=== PATIENT | female | born 1945 | race African-American/Black ===

== ENCOUNTER → 2017-04-28 | Outpatient (CLI) | payer MEDICARE, OTHER ==
--- NOTE | 2017-04-28 08:50 | WOMENS IMAGING REPORT ---
EXAM DESCRIPTION: BILAT SCREENING MAMMO W/CAD COMPLETED DATE/TIME: 04/28/2017 8:00 am REASON FOR STUDY: Z12.31, ROUTINE SCREENING MAMMO Z12.31 ENCNTR SCREEN MAMMOGRAM FOR MALIGNANT NEOP LASM OF NATALIE COMPARISON: Multiple since 2009 TECHNIQUE: Standard craniocaudal and mediolateral oblique views of each breast recorded using digita l acquisition. LIMITATIONS: None. FINDINGS: Findings present which are benign by mammographic criteria. No suspicious masses, calcifi cations or architectural distortion. Pertinent benign findings: Benign vascular calcifications bilaterally. Read with the assistance of CAD. .[facility] - R2 Cenova Version 1.3 .[facility] - R2 Cenova Version 1.3 .[facility] - R2 Cenova Version 2.4 .[facility] [place] R2 Cenova Version 2.4 .[facility] - R2 Shoulder Joiner Version 9.2 Benign mammographic findings may include one or more of the following: Smooth masses, popcorn/rim/co arse calcifications, asymmetries, post-procedure changes, and lesions with long-standing stability. IMPRESSION: BENIGN MAMMOGRAPHIC FINDINGS. BIRADS 2 BREAST DENSITY: b. There are scattered areas of fibroglandular density. BIRAD: 2 BENIGN FINDING(S) RECOMMENDATION: ROUTINE SCREENING Please consider bilateral screening tomosynthesis in April 2018 COMMENT: The patient has been notified of the results by letter per [place] requirements. Additional no tification policies are in place for contacting patient with suspicious or incomplete findings. Quality ID #[id number]: The [employer] recommends an annual screening mammogram for women aged 40 years or over. This facility utilizes a reminder system to ensure that all patients receive reminder letters, and/or direct phone calls for appointments. This includes reminders for routine scr eening mammograms, diagnostic mammograms, or other Breast Imaging Interventions when appropriate. Th is patient will be placed in the appropriate reminder system. The [employer] (ACR) has developed recommendations for screening MRI of the breast s in certain patient populations, to be used in conjunction with mammography. Breast MRI surveillanc e may be appropriate for women with more than 20% lifetime risk of developing breast cancer as deter mined by genetic testing, significant family history of the disease, or history of mantle radiation f or Hodgkins Disease. ACR Practice Guidelines 2008. TECHNICAL DOCUMENTATION: FINDING NUMBER: (1) ASSESSMENT: (1) JOB ID: [id number] [employer]- All Rights Reserved
== END ==
LOC: WI 12:52
PROVIDERS: ATTEND Family Medicine
DX: Z12.31 Encounter for screening mammogram for malignant neoplasm of breast (principal)
CPT/HCPCS: 77067; G0202

== ENCOUNTER → 2017-08-12 | Outpatient (CLI) | payer MEDICARE, OTHER ==
--- NOTE | 2017-08-12 13:48 | RADIOLOGY REPORT (SQ) ---
EXAM DESCRIPTION: SHOULDER RIGHT 2 OR MORE VIEWS COMPLETED DATE/TIME: 08/12/2017 9:55 am REASON FOR STUDY: RIGHT SHOULDER PAIN, UNSPECIFIED CHRONICITY COMPARISON: None. NUMBER OF VIEWS: Three views. TECHNIQUE: Internal rotation, external rotation, and Y view images acquired of the right shoulder. LIMITATIONS: None. FINDINGS: MINERALIZATION: Normal. BONES: No acute fracture or dislocation. No worrisome bone lesions. JOINTS: No dislocation. VISUALIZED LUNGS AND RIBS: No pneumothorax. No rib fracture. SOFT TISSUES: No radiopaque foreign body. OTHER: No other significant finding. IMPRESSION: NEGATIVE STUDY OF THE RIGHT SHOULDER. NO RADIOGRAPHIC EVIDENCE OF ACUTE INJURY. TECHNICAL DOCUMENTATION: JOB ID: [id number] [employer]- All Rights Reserved
== END ==
LOC: RAD 09:30
PROVIDERS: ATTEND Family Medicine
DX: M25.511 Pain in right shoulder (principal)

== ENCOUNTER 2018-01-11 11:41 | Emergency (ER) | payer MEDICARE, OTHER ==
[2018-01-11] MEDS ORDERED: ASPIRIN 81 MG TABLET, CHEWABLE PO ONE (12:58)
--- NOTE | 2018-01-11 13:00 | ER Document Report ---
ED Medical Screen (RME) - General Chief Complaint: Blood Pressure Problem Stated Complaint: BLOOD PRESSURE ISSUE Time Seen by Provider: 01/11/18 12:46 Notes: Patient states that she was at work and felt like she was going to pass out. Had a near syncopal episode. Complaining of pain in her shoulders. No significant shortness of breath. No chest pain. No vomiting. On blood pressure medications. Takes lisinopril. Blood pressure at triage was low. I have greeted and performed a rapid initial assessment of this patient. A comprehensive ED assessment and evaluation of the patient, analysis of test results and completion of the medical decision making process will be conducted by additional ED providers. TRAVEL OUTSIDE OF THE [place] IN LAST 30 DAYS: No - Related Data Allergies/Adverse Reactions: No Known Allergies Allergy (Verified 01/11/18 11:43) Past Medical History - Social History Frequency of alcohol use: None Drug Abuse: None - Past Medical History Cardiac Medical History: Reports: Hx Hypertension Renal/ Medical History: Denies: Hx Peritoneal Dialysis GI Medical History: Reports: Hx Gastroesophageal Reflux Disease Psychiatric Medical History: Reports: Hx Depression Physical Exam - Vital signs Vitals: Temp Pulse Resp BP Pulse Ox 98.1 F 72 20 104/53 L 98 01/11/18 11:46 01/11/18 11:46 01/11/18 11:46 01/11/18 11:46 01/11/18 11:46 Interpretation: Hypotensive - Notes Notes: General: Alert no acute distress HEENT: Atraumatic, normocephalic, pupils equal round react to light and accommodation, extraocular muscles are intact, nose is non tender, posterior pharynx is without erythema or exudate. Tongue is unremarkable Heart: Heart with regular rate and rhythm, no murmurs, no rubs, no clicks Lungs: Lungs clear to auscultation bilaterally, no wheezes, rhonchi, rales Abdomen: Abdomen is soft, nontender, nondistended, normal bowel sounds Neuro: cranial nerves II through XII intact, reflexes intact, sensation intact, Extremities:Moving all extremities. Equal strength bilaterally in the upper lower extremities. No significant deformity Skin: No lesions. Skin intact Psych: Normal insight. Normal judgment Course - Vital Signs Vital signs: Temp Pulse Resp BP Pulse Ox 98.1 F 72 20 104/53 L 98 01/11/18 11:46 01/11/18 11:46 01/11/18 11:46 01/11/18 11:46 01/11/18 11:46
--- NOTE | 2018-01-11 13:57 | RADIOLOGY REPORT (SQ) ---
EXAM DESCRIPTION: CHEST SINGLE VIEW COMPLETED DATE/TIME: 01/11/2018 1:47 pm REASON FOR STUDY: low BP COMPARISON: Chest films 03/16/2014 EXAM PARAMETERS: NUMBER OF VIEWS: One view. TECHNIQUE: Single frontal radiographic view of the chest acquired. RADIATION DOSE: NA LIMITATIONS: None. FINDINGS: LUNGS AND PLEURA: No opacities, masses or pneumothorax. No pleural effusion. MEDIASTINUM AND HILAR STRUCTURES: No masses. Contour normal. HEART AND VASCULAR STRUCTURES: Mild cardiomegaly BONES: No acute findings. HARDWARE: None in the chest. OTHER: No other significant finding. IMPRESSION: NO ACUTE RADIOGRAPHIC FINDING IN THE CHEST. TECHNICAL DOCUMENTATION: JOB ID: [id number] [employer]- All Rights Reserved Reading location - IP/workstation name: [email or web address]
[2018-01-11 14:05] LABS: ABSOLUTE LYMPHOCYTES (AUTO) 1.9 10^3/uL (0.5-4.7); ABSOLUTE MONOCYTES (AUTO) 0.4 10^3/uL (0.1-1.4); ABSOLUTE NEUT (AUTO) 6.8 10^3/uL (1.7-8.2); BASOPHILS % (AUTO) 0.4 % (0-2); EOSINOPHILS % (AUTO) 0.3 % (0-6); HEMATOCRIT 41.7 % (36.0-47.0); HEMOGLOBIN 13.7 g/dL (12.0-15.5); LYMPHOCYTES % (AUTO) 20.5 % (13-45); MEAN CORPUSCULAR HEMOGLOBIN 25.8 pg (27.0-33.4); MEAN CORPUSCULAR VOLUME 78 fl (80-97); MONOCYTES % (AUTO) 4.3 % (3-13); PLATELET COUNT 277 10^3/uL (150-450); RED BLOOD COUNT 5.33 10^6/uL (3.72-5.28); RED CELL DISTRIBUTION WIDTH 14.8 % (11.5-14.0); SEGMENTED NEUTROPHILS % (AUTO) 74.5 % (42-78); TOTAL CELLS COUNTED % (AUTO) 100 %; WHITE BLOOD COUNT 9.2 10^3/uL (4.0-10.5)
[2018-01-11 14:14] LABS: ALANINE AMINOTRANSFERASE 20 U/L (9-52); ALBUMIN 4.2 g/dL (3.5-5.0); ALKALINE PHOSPHATASE 83 U/L (38-126); ANION GAP 12 (5-19); ASPARTATE AMINO TRANSFERASE 24 U/L (14-36); BILIRUBIN,DIRECT 0.2 mg/dL (0.0-0.4); BILIRUBIN,TOTAL 0.5 mg/dL (0.2-1.3); BLOOD UREA NITROGEN 21 mg/dL (7-20); CALCIUM 9.4 mg/dL (8.4-10.2); CARBON DIOXIDE 26 mmol/L (22-30); CHLORIDE 104 mmol/L (98-107); CREATINE KINASE 179 U/L (30-135); GLUCOSE 121 mg/dL (75-110); POTASSIUM 4.3 mmol/L (3.6-5.0); SODIUM 141.5 mmol/L (137-145); TOTAL PROTEIN 8.3 g/dL (6.3-8.2)
[2018-01-11 14:27] LABS: CREATINE KINASE MB 0.79 ng/mL (<4.55)
[2018-01-11 14:28] LABS: TROPONIN I < 0.012 ng/mL
--- NOTE | 2018-01-11 16:04 | ER Document Report ---
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 About 9:30 AM, she began to feel dizzy noted some pains in her neck and arms and felt like she might pass out. Her symptoms lasted about 30 minutes and she was picked up from work by her who took her home and took her blood pressure and it was 90/50. Patient says that her symptoms lasted about 30 minutes and have not been present ever since, it has now been 5 hours since her symptoms stopped and they have not returned. She has not had any nausea or vomiting or diarrhea. No abdominal pains. Denies any chest pains. Denies any difficulty breathing or shortness of breath. No UTI symptoms. No fever or chills. Patient did feel "hot". She has not been ill recently. Has been eating and drinking liquids well. Here in triage, her blood pressure is 104/53, but later her systolic blood pressure was in the 120s. Patient is on medications for her blood pressure. No other significant past medical history. Not diabetic. No history of heart disease. Has never had this happen to her before. TRAVEL OUTSIDE OF THE [place] IN LAST 30 DAYS: No - Related Data Allergies/Adverse Reactions: No Known Allergies Allergy (Verified 01/11/18 11:43) Past Medical History - Social History Smoking Status: Unknown if Ever Smoked Frequency of alcohol use: None Drug Abuse: None Family History: Reviewed & Not Pertinent Patient has suicidal ideation: No Patient has homicidal ideation: No - Past Medical History Cardiac Medical History: Reports: Hx Hypertension GI Medical History: Reports: Hx Gastroesophageal Reflux Disease Psychiatric Medical History: Reports: Hx Depression Review of Systems - Review of Systems Notes: REVIEW OF SYSTEMS: CONSTITUTIONAL : Denies fever. [place] "hot". EENT: Denies eye, ear, nose or mouth or throat pain or other symptoms. CARDIOVASCULAR: Denies chest pain. RESPIRATORY: Denies cough, chest congestion, or shortness of breath. GASTROINTESTINAL: Denies abdominal pain or nausea, vomiting, or diarrhea. GENITOURINARY: Denies difficulty or painful urinating, urinary frequency, blood in urine. MUSCULOSKELETAL: Denies back or neck pain. Denies joint pain or swelling. SKIN: Denies rash or skin lesions. NEUROLOGICAL: Denies LOC or altered mental status. Denies headache. Denies sensory loss or motor deficits. ALL OTHER SYSTEMS REVIEWED AND NEGATIVE. Physical Exam - Vital signs Vitals: Temp Pulse Resp BP Pulse Ox 98.1 F 72 20 104/53 L 98 01/11/18 11:46 01/11/18 11:46 01/11/18 11:46 01/11/18 11:46 01/11/18 11:46 Interpretation: Normal - Notes Notes: PHYSICAL EXAMINATION: GENERAL: Well-appearing, in no acute distress. Blood pressure towards the lower range of normal, but never hypotensive. HEAD: Atraumatic, normocephalic. EYES: Pupils equal round and reactive to light, extraocular movements intact. ENT: oropharynx clear without exudates. Moist mucous membranes. NECK: Normal range of motion, supple. LUNGS: Breath sounds clear and equal bilaterally. HEART: Regular rate and rhythm without murmurs. ABDOMEN: Soft, nontender. No guarding or rebound. No masses. BACK: No tenderness throughout entire back. EXTREMITIES: Normal range of motion without pain. NEUROLOGICAL: Normal speech, normal gait. Normal sensory, motor, and reflex exams. Awake, alert, and oriented x3. Cranial nerves normal. PSYCH: Normal mood, normal affect. SKIN: Warm, dry, no rashes. Course - Re-evaluation Re-evalutation: 01/11/18 20:20 Urinalysis is suggestive of a possible UTI. Patient was given a gram of Rocephin IV and also a liter of saline IV. She was nauseated and was given Zofran IV. Blood pressure maintained throughout her stay in the department. - Vital Signs Vital signs: Temp Pulse Resp BP Pulse Ox 98.1 F 72 16 128/71 H 100 01/11/18 11:46 01/11/18 11:46 01/11/18 19:01 01/11/18 19:01 01/11/18 19:01 - Laboratory Result Diagrams: 01/11/18 13:20 01/11/18 13:20 Laboratory results interpreted by me: 01/11/18 01/11/18 01/11/18 13:20 13:20 15:23 RBC 5.33 H MCV 78 L MCH 25.8 L RDW 14.8 H BUN 21 H Creatinine 1.33 H Est GFR ( Amer) 48 L Est GFR (Non-Af Amer) 39 L Glucose 121 H Creatine Kinase 179 H Total Protein 8.3 H Ur Leukocyte Esterase LARGE H Urine Ascorbic Acid 40 H - Diagnostic Test Radiology reviewed: Image reviewed, Reports reviewed - CT scan of the brain is normal. Discharge - Discharge Clinical Impression: Dizziness, UTI (urinary tract infection), Nausea Condition: Stable Disposition: HOME, SELF-CARE Additional Instructions: Dizziness Under normal circumstances, your sense of balance is controlled by a number of signals that your brain receives from several locations: Eyes. No matter what your position, visual signals help you determine where your body is in space and how it's moving. Sensory nerves. These are in your skin, muscles and joints. Sensory nerves send messages to your brain about body movements and positions. Inner ear. The organ of balance in your inner ear is the vestibular labyrinth. It includes loop-shaped structures (semicircular canals) that contain fluid and fine, hair-like sensors that monitor the rotation of your head. Near the semicircular canals are the utricle and saccule, which contain tiny particles called otoconia (w-ifi-MJT-nee-uh). These particles are attached to sensors that help detect gravity and hlon-xhe-uasyq motion. Good balance depends on at least two of these three sensory systems working well. For instance, closing your eyes while washing your hair in the shower doesn't mean you'll lose your balance. Signals from your inner ear and sensory nerves help keep you upright. However, if your central nervous system can't process signals from all of these locations, if the messages are contradictory, or if the sensory systems aren't functioning properly, you may experience loss of balance. Dizziness may have a number of potential causes. These may include: Vertigo Vertigo - the false sense of motion or spinning - is the most common symptom of dizziness. Sitting up or moving around may make it worse. Sometimes vertigo is severe enough to cause nausea and vomiting. Vertigo usually results from a problem with the nerves and the structures of the balance mechanism in your inner ear (vestibular system), which sense movement and changes in your head position. Abnormal rhythmic eye movements ( nystagmus) almost always accompany vertigo. Causes of vertigo may include: Benign paroxysmal positional vertigo (BPPV). BPPV involves intense, brief episodes of vertigo associated with a change in the position of your head, often when you turn over in bed or sit up in the morning. It occurs when normal calcium carbonate crystals (otoconia) break loose and fall into the wrong part of the canals in your inner ear. When these particles shift, they stimulate sensors in your ear, producing an episode of vertigo. Doctors don't know what causes BPPV, but it may be a natural result of aging. Trauma to your head also may lead to BPPV. Inflammation in the inner ear. Signs and symptoms of inflammation of the inner ear (acute vestibular neuronitis or labyrinthitis) include sudden, intense vertigo that may persist for several days, with nausea and vomiting. It can be incapacitating, requiring bed rest to minimize the signs and symptoms. Fortunately, vestibular neuronitis generally subsides and clears up on its own. Recovery time may be shorter with vestibular rehabilitation exercises. Although the cause of this condition is unknown, it may be a viral infection. Meniere's disease. This disease involves the excessive buildup of fluid in your inner ear. It may affect adults at any age and is characterized by sudden episodes of vertigo lasting 30 minutes to an hour or longer. Other signs and symptoms include the feeling of fullness in your ear, buzzing or ringing in your ear (tinnitus), and fluctuating hearing loss. The cause of Meniere's disease is unknown. Vestibular migraine. People who experience a vestibular migraine are very sensitive to motion. Dizziness and vertigo caused by a vestibular migraine may be triggered by turning your head quickly, being in a crowded or confusing place , driving or riding in a vehicle, or even watching movement on TV. A vestibular migraine may cause feelings of imbalance or unsteadiness, hearing loss, "muffled " hearing, or ringing in your ears (tinnitus). For most people with a vestibular migraine, vertigo doesn't necessarily happen at the same time as the headache. Instead, typical migraine triggers may lead to vertigo without an actual migraine. Attacks of migrainous vertigo can last from a few minutes to several days. Acoustic neuroma. An acoustic neuroma (schwannoma) is a noncancerous (benign ) growth on the acoustic nerve, which connects the inner ear to your brain. Signs and symptoms of an acoustic neuroma may include dizziness, loss of balance , hearing loss and tinnitus. Rapid changes in motion. Riding on roller coasters or in boats, cars or even airplanes may on occasion make you dizzy. Other causes. Rarely, vertigo can be a symptom of a more serious neurological problem such as a stroke, brain hemorrhage or multiple sclerosis. URINARY TRACT INFECTION: Your evaluation indicates that you have a urinary tract infection. This is due to germs growing in the bladder. This is a common problem. This infection usually responds quickly to antibiotics. Your antibiotic should be taken exactly as prescribed. Drink plenty of fluids -- three to four quarts a day. Occasionally, a bladder anesthetic will be prescribed to help stop the feeling of urgency until the antibiotic has a chance to clear the infection. This may cause your urine to be dark orange. Certain urine infections require a culture. If the doctor obtained a culture, the results will be back in two days. You should call to see if a change in treatment is needed. A repeat urinalysis after you finish treatment is often recommended. The physician will let you know if further testing is required. Call the doctor if you develop fever, chills, flank pain, inability to urinate, or blood in the urine. ANTIBIOTIC THERAPY: You have been given an antibiotic prescription. It's important that you take all the medication, unless instructed otherwise by your physician. Failure to complete the entire course can result in relapse of your condition. Common side effects of antibiotics include nausea, intestinal cramping, or diarrhea. Women may develop vaginal yeast infections, and babies can get yeast (thrush) in the mouth following the use of antibiotics. Contact your physician if you develop significant side effects from this medication. Allergy to this antibiotic can result in hives, wheezing, faintness, or itching. If symptoms of allergy occur, stop the medication and call the doctor. Rocephin You have been given an injection of an antibiotic called Rocephin ( ceftriaxone). Sometimes the injection must be combined with antibiotic pills. For some infections, such as an uncomplicated ear infection, Rocephin provides all the antibiotic that's needed. The antibiotic will be in your body for about two days. For serious infections, we usually repeat doses of Rocephin daily. Side effects are very unusual following a shot. Women may develop vaginal yeast infections, and babies can get yeast (thrush) in the mouth following the use of antibiotics. Contact your physician if you have symptoms with this medication. Allergy to this antibiotic can result in hives, wheezing, faintness, or itching. If symptoms of allergy occur, call the doctor at once. NITROFURANTOIN (MACRODANTIN, MACROBID): You have received a prescription for nitrofurantoin (Macrodantin). This antibiotic is used for urinary tract infections. Women who are or nursing should notify the physician before taking this medicine. If you have ever had a problem caused by this medication in the past, be sure the physician is aware of it. Common side effects of this medicine include nausea, vomiting, or decreased appetite. Notify your physician if these side effects become severe. Immediately stop this medicine and call the physician if you develop cough , shortness of breath, chest pain, weakness, jaundice (yellow color of the skin and whites of the eyes), or a skin rash. Antinausea Medication You have been given a medication to suppress nausea and vomiting. This type of medication can be given as a shot, pill, or suppository. It will usually last for many hours. Pills and shots usually last six to eight hours, suppositories last about 12 hours. For the typical illness, only one or two doses of the medication may be necessary. Mild lightheadedness may occur. This type of medicine can cause drowsiness. Do not drive or operate dangerous machinery while under its influence. Do not mix with alcohol. See your doctor at once if you have muscle spasms or tightness, or uncontrollable motions (particularly of the neck, mouth, or jaw). Persistent vomiting or severe lightheadedness should also be evaluated by the physician. FOLLOW-UP CARE: If you have been referred to a physician for follow-up care, call the physician s office for an appointment as you were instructed or within the next two days. If you experience worsening or a significant change in your symptoms, notify the physician immediately or return to the Emergency Department at any time for re-evaluation. Prescriptions: Ondansetron [Zofran Odt 4 mg Tablet] 1 - 2 tab PO Q4HP PRN #10 tab.rapdis PRN Reason: For Nausea/Vomiting Nitrofurantoin/Nitrofuran Mac [Macrobid 100 mg Capsule] 1 tab PO BID #14 capsule Forms: Return to Work Referrals: LUIS ARMANDO HOPKINS DO [Primary Care Provider] - Follow up as needed
[2018-01-11 16:08] LABS: APPEARANCE,URINE CLEAR; BILIRUBIN,URINE NEGATIVE (NEGATIVE); COLOR,URINE STRAW; GLUCOSE, URINE NEGATIVE (NEGATIVE); KETONES,URINE NEGATIVE (NEGATIVE)
[2018-01-11 16:09] LABS: LEUKOCYTE ESTERASE,URINE LARGE (NEGATIVE); NITRITE,URINE NEGATIVE (NEGATIVE); PROTEIN,URINE NEGATIVE (NEGATIVE); URINE SPECIFIC GRAVITY 1.018; UROBILINOGEN,URINE NEGATIVE mg/dL (<2.0)
--- NOTE | 2018-01-11 16:16 | RADIOLOGY REPORT (SQ) ---
EXAM DESCRIPTION: CT HEAD WITHOUT COMPLETED DATE/TIME: 01/11/2018 3:55 pm REASON FOR STUDY: Dizzy and low blood pressure COMPARISON: 03/16/2014 TECHNIQUE: Axial images acquired through the brain without intravenous contrast. Images reviewed wi th bone, brain and subdural windows. Additional sagittal and coronal reconstructions were generated. Images stored on PACS. All CT scanners at this facility use dose modulation, iterative reconstruction, and/or weight based d osing when appropriate to reduce radiation dose to as low as reasonably achievable (ALARA). [facility]: Dose Right [facility]: CareDose [facility]: Dose Right [facility]: Teradose 4D [facility]: Smart [employer] RADIATION DOSE: CT Rad equipment meets quality standard of care and radiation dose reduction techniq ues were employed. CTDIvol: 53.2 mGy. DLP: 1044 mGy-cm. mGy. LIMITATIONS: None. FINDINGS: VENTRICLES: Normal size and contour. CEREBRUM: No masses. No hemorrhage. No midline shift. No evidence for acute infarction. Mild to mo derate chronic small vessel ischemic disease similar to the prior study. Basal ganglion calcificatio ns. CEREBELLUM: No masses. No hemorrhage. No alteration of density. No evidence for acute infarction. EXTRAAXIAL SPACES: No fluid collections. No masses. ORBITS AND GLOBE: No intra- or extraconal masses. Normal contour of globe without masses. CALVARIUM: No fracture. PARANASAL SINUSES: No fluid or mucosal thickening. SOFT TISSUES: No mass or hematoma. OTHER: No other significant finding. IMPRESSION: 1. No evidence of acute event. 2. Chronic small vessel ischemic disease. EVIDENCE OF ACUTE STROKE: NO. COMMENT: Quality ID # [id number]: Final reports with documentation of one or more dose reduction techniques (e.g., Automated exposure control, adjustment of the mA and/or kV according to patient size, use of iterative reconstruction technique) TECHNICAL DOCUMENTATION: JOB ID: [id number] [email or web address]- All Rights Reserved Reading location - IP/workstation name: [email or web address]
[2018-01-11] MEDS ORDERED: CEFTRIAXONE INJ 1000 MG VIAL IV ONE (17:10)
[2018-01-11] MEDS ORDERED: NORMAL SALINE 1000 ML 1,000 ML IV ONE (17:20)
[2018-01-11] MEDS ORDERED: ONDANSETRON HCL INJ/PF 4 MG/2 ML SDV IV ONE (17:37)
--- NOTE | 2018-01-11 18:17 | EKG REPORT ---
SEVERITY:- ABNORMAL ECG - SINUS RHYTHM LEFT BUNDLE BRANCH BLOCK : Confirmed by: Car Stanley MD 11-Jan-2018 18:16:25
[2018-01-11 19:22] VITALS: BP 128/71
== END 2018-01-11 19:22 | disposition home or self-care (01) ==
LOC: ER 11:41
DX: R42 Dizziness and giddiness (principal); N39.0 Urinary tract infection, site not specified; R11.0 Nausea; I10 Essential (primary) hypertension; Z79.899 Other long term (current) drug therapy
CPT/HCPCS: 93005; 99284; 96361; 96374; 96375; 36415; 87086; 82553; 82550; 85025; 80053; 81001; 84484; 71045; 70450; 93010; A9270; J0696; J2405; J7030

== ENCOUNTER → 2018-04-30 | Outpatient (CLI) | payer MEDICARE, OTHER ==
--- NOTE | 2018-04-30 11:23 | WOMENS IMAGING REPORT ---
EXAM DESCRIPTION: BILAT SCREENING MAMMO W/CAD COMPLETED DATE/TIME: 04/30/2018 9:47 am REASON FOR STUDY: SCREENING MAMMO Z12.31 ENCNTR SCREEN MAMMOGRAM FOR MALIGNANT NEOPLASM OF NATALIE COMPARISON: 04/28/2017 and 04/22/2016 TECHNIQUE: Standard craniocaudal and mediolateral oblique views of each breast recorded using Xoinkaa l acquisition. LIMITATIONS: None. FINDINGS: Findings present which are benign by mammographic criteria. No suspicious masses, calcifi cations or architectural distortion. Read with the assistance of CAD. .[facility] - R2 Cenova Version 1.3 .[facility] Imaging - R2 Cenova Version 1.3 .[facility] - R2 Cenova Version 2.4 .[facility] - R2 Cenova Version 2.4 .[facility] - R2 Indoor Plant Technician Version 9.2 Benign mammographic findings may include one or more of the following: Smooth masses, popcorn/rim/co arse calcifications, asymmetries, post-procedure changes, and lesions with long-standing stability. IMPRESSION: BENIGN MAMMOGRAPHIC FINDINGS. BIRADS 2 BREAST DENSITY: b. There are scattered areas of fibroglandular density. BIRAD: 2 BENIGN FINDING(S) RECOMMENDATION: ROUTINE SCREENING COMMENT: The patient has been notified of the results by letter per SA requirements. Additional no tification policies are in place for contacting patient with suspicious or incomplete findings. Quality ID #[id number]: The [employer] recommends an annual screening mammogram for women aged 40 years or over. This facility utilizes a reminder system to ensure that all patients receive reminder letters, and/or direct phone calls for appointments. This includes reminders for routine scr eening mammograms, diagnostic mammograms, or other Breast Imaging Interventions when appropriate. Th is patient will be placed in the appropriate reminder system. The [employer] (ACR) has developed recommendations for screening MRI of the breast s in certain patient populations, to be used in conjunction with mammography. Breast MRI surveillanc e may be appropriate for women with more than 20% lifetime risk of developing breast cancer as deter mined by genetic testing, significant family history of the disease, or history of mantle radiation f or Hodgkins Disease. ACR Practice Guidelines 2008. TECHNICAL DOCUMENTATION: FINDING NUMBER: (1) ASSESSMENT: (1) JOB ID: [id number] [email or web address]- All Rights Reserved Reading location - IP/workstation name: [email or web address]
== END ==
LOC: WI 08:56
PROVIDERS: ATTEND Family Medicine
DX: Z12.31 Encounter for screening mammogram for malignant neoplasm of breast (principal)
CPT/HCPCS: 77067

== ENCOUNTER → 2018-07-11 | Outpatient (CLI) | payer MEDICARE ==
[2018-07-11 10:03] LABS: ALANINE AMINOTRANSFERASE 16 U/L (9-52); ALBUMIN 3.6 g/dL (3.5-5.0); ALKALINE PHOSPHATASE 70 U/L (38-126); ASPARTATE AMINO TRANSFERASE 17 U/L (14-36); BILIRUBIN,DIRECT 0.4 mg/dL (0.0-0.4); BILIRUBIN,TOTAL 0.5 mg/dL (0.2-1.3); CHOLESTEROL 202.85 mg/dL (0-200); TRIGLYCERIDES 78 mg/dL (<150)
[2018-07-11 10:13] LABS: DIRECT LDL 134 mg/dL (<100)
== END ==
LOC: LAB 08:45
PROVIDERS: ATTEND Internal Medicine Cardiovascular Disease
DX: E78.00 Pure hypercholesterolemia, unspecified (principal); Z79.899 Other long term (current) drug therapy
CPT/HCPCS: 36415; 80061; 80076

== ENCOUNTER 2018-07-23 04:41 | Emergency (ER) | payer MEDICARE, OTHER ==
[2018-07-23 04:48] VITALS: BP 130/60
== END 2018-07-23 07:16 | disposition left against medical advice (07) ==
LOC: ER 04:41
DX: Z53.21 Procedure and treatment not carried out due to patient leaving prior to being seen by health care provider (principal)

== ENCOUNTER → 2018-08-18 | Outpatient (CLI) | payer MEDICARE, OTHER ==
[2018-08-18 10:28] LABS: ALANINE AMINOTRANSFERASE 27 U/L (9-52); ALBUMIN 3.7 g/dL (3.5-5.0); ALKALINE PHOSPHATASE 80 U/L (38-126); ASPARTATE AMINO TRANSFERASE 20 U/L (14-36); BILIRUBIN,DIRECT 0.1 mg/dL (0.0-0.4); BILIRUBIN,TOTAL 0.8 mg/dL (0.2-1.3); CHOLESTEROL 138.97 mg/dL (0-200); TOTAL PROTEIN 7.2 g/dL (6.3-8.2); TRIGLYCERIDES 94 mg/dL (<150)
[2018-08-18 10:39] LABS: DIRECT LDL 92 mg/dL (<100)
== END ==
LOC: LAB 09:39
PROVIDERS: ATTEND Internal Medicine Cardiovascular Disease
DX: E78.00 Pure hypercholesterolemia, unspecified (principal); Z79.899 Other long term (current) drug therapy
CPT/HCPCS: 36415; 80061; 80076

== ENCOUNTER → 2018-09-19 | Outpatient (CLI) | payer MEDICARE, OTHER ==
[2018-09-19 15:15] LABS: ALANINE AMINOTRANSFERASE 27 U/L (9-52); ALKALINE PHOSPHATASE 95 U/L (38-126); ANION GAP 13 (5-19); ASPARTATE AMINO TRANSFERASE 23 U/L (14-36); BILIRUBIN,DIRECT 0.2 mg/dL (0.0-0.4); BILIRUBIN,TOTAL 0.7 mg/dL (0.2-1.3); BLOOD UREA NITROGEN 21 mg/dL (7-20); CALCIUM 9.3 mg/dL (8.4-10.2); CARBON DIOXIDE 23 mmol/L (22-30); CHLORIDE 105 mmol/L (98-107); CHOLESTEROL 133.42 mg/dL (0-200); GLUCOSE 93 mg/dL (75-110); POTASSIUM 4.3 mmol/L (3.6-5.0); SODIUM 141.4 mmol/L (137-145); TOTAL PROTEIN 7.9 g/dL (6.3-8.2); TRIGLYCERIDES 85 mg/dL (<150)
[2018-09-19 15:25] LABS: DIRECT LDL 88 mg/dL (<100)
== END ==
LOC: LAB 14:22
PROVIDERS: ATTEND Internal Medicine Cardiovascular Disease
DX: E78.00 Pure hypercholesterolemia, unspecified (principal); I10 Essential (primary) hypertension; Z79.899 Other long term (current) drug therapy
CPT/HCPCS: 36415; 80048; 80061; 80076

== ENCOUNTER → 2019-04-03 | Outpatient (CLI) | payer MEDICARE, OTHER ==
[2019-04-03 09:02] LABS: ALANINE AMINOTRANSFERASE 20 U/L (9-52); ALBUMIN 3.7 g/dL (3.5-5.0); ALKALINE PHOSPHATASE 84 U/L (38-126); ANION GAP 9 (5-19); ASPARTATE AMINO TRANSFERASE 15 U/L (14-36); BILIRUBIN,DIRECT 0.2 mg/dL (0.0-0.4); BILIRUBIN,TOTAL 0.4 mg/dL (0.2-1.3); BLOOD UREA NITROGEN 19 mg/dL (7-20); CALCIUM 9.1 mg/dL (8.4-10.2); CARBON DIOXIDE 24 mmol/L (22-30); CHLORIDE 108 mmol/L (98-107); CHOLESTEROL 192.44 mg/dL (0-200); GLUCOSE 102 mg/dL (75-110); POTASSIUM 4.4 mmol/L (3.6-5.0); SODIUM 140.8 mmol/L (137-145); TOTAL PROTEIN 7.4 g/dL (6.3-8.2); TRIGLYCERIDES 84 mg/dL (<150)
[2019-04-03 09:13] LABS: DIRECT LDL 122 mg/dL (<100)
== END ==
LOC: LAB 08:16
PROVIDERS: ATTEND Internal Medicine Cardiovascular Disease
DX: E78.00 Pure hypercholesterolemia, unspecified (principal); I10 Essential (primary) hypertension; R00.2 Palpitations; Z79.899 Other long term (current) drug therapy
CPT/HCPCS: 36415; 80048; 80061; 80076

== ENCOUNTER → 2019-06-12 | Outpatient (CLI) | payer MEDICARE, OTHER ==
--- NOTE | 2019-06-12 15:48 | RADIOLOGY REPORT (SQ) ---
EXAM DESCRIPTION: CHEST 2 VIEWS COMPLETED DATE/TIME: 06/12/2019 3:41 pm REASON FOR STUDY: I48.0 PAROXYSMAL ATRIAL FIBRILLATION, R07.2 PRECORDIAL PAIN COMPARISON: 03/16/2014 EXAM PARAMETERS: NUMBER OF VIEWS: two views TECHNIQUE: Digital Frontal and Lateral radiographic views of the chest acquired. RADIATION DOSE: NA LIMITATIONS: none FINDINGS: LUNGS AND PLEURA: No opacities, masses or pneumothorax. No pleural effusion. MEDIASTINUM AND HILAR STRUCTURES: No masses or contour abnormalities. HEART AND VASCULAR STRUCTURES: Heart normal size. No evidence for failure. BONES: No acute findings. HARDWARE: None in the chest. OTHER: No other significant finding. IMPRESSION: NO ACUTE RADIOGRAPHIC FINDING IN THE CHEST. TECHNICAL DOCUMENTATION: JOB ID: [id number] [employer]- All Rights Reserved Reading location - IP/workstation name: [email or web address]
== END ==
LOC: RAD 15:12
PROVIDERS: ATTEND Internal Medicine Cardiovascular Disease
DX: R07.2 Precordial pain (principal); I48.0 Paroxysmal atrial fibrillation
CPT/HCPCS: 71046

== ENCOUNTER → 2019-06-12 | Outpatient (CLI) | payer MEDICARE, OTHER ==
[2019-06-12 15:46] LABS: HEMATOCRIT 37.6 % (36.0-47.0); HEMOGLOBIN 12.4 g/dL (12.0-15.5); MEAN CORPUSCULAR HEMOGLOBIN 25.8 pg (27.0-33.4); MEAN CORPUSCULAR HGB CONC 33.1 g/dL (32.0-36.0); MEAN CORPUSCULAR VOLUME 78 fl (80-97); PLATELET COUNT 177 10^3/uL (150-450); RED BLOOD COUNT 4.81 10^6/uL (3.72-5.28); RED CELL DISTRIBUTION WIDTH 15.2 % (11.5-14.0); WHITE BLOOD COUNT 9.6 10^3/uL (4.0-10.5)
[2019-06-12 16:04] LABS: APPEARANCE,URINE CLOUDY; BILIRUBIN,URINE NEGATIVE (NEGATIVE); COLOR,URINE YELLOW; GLUCOSE, URINE NEGATIVE (NEGATIVE); KETONES,URINE NEGATIVE (NEGATIVE); LEUKOCYTE ESTERASE,URINE LARGE (NEGATIVE); NITRITE,URINE NEGATIVE (NEGATIVE); PROTEIN,URINE NEGATIVE (NEGATIVE); URINE SPECIFIC GRAVITY 1.015
[2019-06-12 16:14] LABS: ALBUMIN 3.9 g/dL (3.5-5.0); ALKALINE PHOSPHATASE 97 U/L (38-126); ANION GAP 9 (5-19); ASPARTATE AMINO TRANSFERASE 21 U/L (14-36); BILIRUBIN,DIRECT 0.3 mg/dL (0.0-0.4); BILIRUBIN,TOTAL 0.7 mg/dL (0.2-1.3); BLOOD UREA NITROGEN 19 mg/dL (7-20); CALCIUM 9.3 mg/dL (8.4-10.2); CARBON DIOXIDE 23 mmol/L (22-30); CHLORIDE 108 mmol/L (98-107); GLUCOSE 97 mg/dL (75-110); POTASSIUM 4.4 mmol/L (3.6-5.0); TOTAL PROTEIN 7.7 g/dL (6.3-8.2)
== END ==
LOC: LAB 15:10
PROVIDERS: ATTEND Physician Assistant
DX: R31.9 Hematuria, unspecified (principal); Z79.01 Long term (current) use of anticoagulants; Z79.899 Other long term (current) drug therapy
CPT/HCPCS: 36415; 80048; 80076; 81001; 82272; 83735; 85027; 85730; 87086

== ENCOUNTER → 2019-06-24 | Outpatient (CLI) | payer MEDICARE, OTHER ==
[~2019-06-24] MED LIST: ALBUTEROL SULFATE 0.083% NEB 2.5 MG/3 ML AMPUL NEB ONE
--- NOTE | 2019-06-24 13:57 | Pulmonary Function Test ---
Pulmonary Function Test Date of Procedure:: 06/24/19 INDICATION:: Dyspnea Referring Provider: Dr. Espino Dry Room Operator: Evangelina Mathur INSPECTOR FILTER TIP - Report Spirometry: Spirometry: pre-FVC: 82% 2.32 L post-FVC: 2.30 L 81% pre-FEV:1 1.76 L 82% post-FEV1: 1.77 L 82% pre-FEV1/FVC %: 76 post-FEV1/FVC%: 77 predicted: 81 [id number]%: 1.45 L 74% [id number]%: 1.60 L 83% Diffusion Capactity: DLCO: 11.7 51% DLCO/VA: 4.36 121% Impression: Obstructive airway disease may be inferred by the decrease in FEF 25-75%. Moderate decrease in diffusion capacity.
== END ==
LOC: RT 07:38
PROVIDERS: ATTEND Internal Medicine Cardiovascular Disease
DX: I48.0 Paroxysmal atrial fibrillation (principal); Z79.899 Other long term (current) drug therapy
CPT/HCPCS: 94729; 94060; A9270

== ENCOUNTER → 2019-08-13 | Outpatient (CLI) | payer MEDICARE, OTHER ==
[2019-08-13 10:13] LABS: ALBUMIN 3.6 g/dL (3.5-5.0); ALKALINE PHOSPHATASE 75 U/L (38-126); ASPARTATE AMINO TRANSFERASE 29 U/L (14-36); BILIRUBIN,DIRECT 0.1 mg/dL (0.0-0.4); CHOLESTEROL 109.82 mg/dL (0-200); TOTAL PROTEIN 7.2 g/dL (6.3-8.2); TRIGLYCERIDES 70 mg/dL (<150)
[2019-08-13 10:24] LABS: DIRECT LDL 55 mg/dL (<100)
== END ==
LOC: LAB 08:37
PROVIDERS: ATTEND Internal Medicine Cardiovascular Disease
DX: I48.0 Paroxysmal atrial fibrillation (principal); E78.00 Pure hypercholesterolemia, unspecified; Z79.899 Other long term (current) drug therapy
CPT/HCPCS: 36415; 80061; 80076; 83735; 84443

== ENCOUNTER → 2019-09-24 | Outpatient (CLI) | payer MEDICARE, OTHER ==
[2019-09-24 09:03] LABS: ANION GAP 11 (5-19); BLOOD UREA NITROGEN 14 mg/dL (7-20); CALCIUM 8.4 mg/dL (8.4-10.2); CARBON DIOXIDE 23 mmol/L (22-30); CHLORIDE 106 mmol/L (98-107); GLUCOSE 115 mg/dL (75-110); POTASSIUM 4.4 mmol/L (3.6-5.0)
== END ==
LOC: LAB 08:07
PROVIDERS: ATTEND Internal Medicine Cardiovascular Disease
DX: R00.2 Palpitations (principal)
CPT/HCPCS: 36415; 80048

== ENCOUNTER → 2019-12-31 | Outpatient (CLI) | payer MEDICARE, OTHER ==
[2019-12-31 10:29] LABS: HEMATOCRIT 38.2 % (36.0-47.0); HEMOGLOBIN 12.9 g/dL (12.0-15.5); MEAN CORPUSCULAR HEMOGLOBIN 26.5 pg (27.0-33.4); MEAN CORPUSCULAR HGB CONC 33.7 g/dL (32.0-36.0); MEAN CORPUSCULAR VOLUME 79 fl (80-97); PLATELET COUNT 196 10^3/uL (150-450); RED BLOOD COUNT 4.87 10^6/uL (3.72-5.28); RED CELL DISTRIBUTION WIDTH 14.6 % (11.5-14.0); WHITE BLOOD COUNT 6.3 10^3/uL (4.0-10.5)
[2019-12-31 10:30] LABS: APPEARANCE,URINE SLIGHTLY-CLOUDY; BILIRUBIN,URINE NEGATIVE (NEGATIVE); COLOR,URINE YELLOW; GLUCOSE, URINE NEGATIVE (NEGATIVE); KETONES,URINE NEGATIVE (NEGATIVE); LEUKOCYTE ESTERASE,URINE LARGE (NEGATIVE); NITRITE,URINE NEGATIVE (NEGATIVE); PROTEIN,URINE NEGATIVE (NEGATIVE); URINE SPECIFIC GRAVITY 1.012; UROBILINOGEN,URINE NEGATIVE mg/dL (<2.0)
[2019-12-31 11:07] LABS: ALBUMIN 3.9 g/dL (3.5-5.0); ALKALINE PHOSPHATASE 74 U/L (38-126); ANION GAP 10 (5-19); ASPARTATE AMINO TRANSFERASE 32 U/L (14-36); BILIRUBIN,TOTAL 0.8 mg/dL (0.2-1.3); BLOOD UREA NITROGEN 25 mg/dL (7-20); CARBON DIOXIDE 24 mmol/L (22-30); CHLORIDE 105 mmol/L (98-107); GLUCOSE 107 mg/dL (75-110); POTASSIUM 4.7 mmol/L (3.6-5.0); TOTAL PROTEIN 7.5 g/dL (6.3-8.2)
== END ==
LOC: OD 09:32
PROVIDERS: ATTEND Physician Assistant
DX: I48.0 Paroxysmal atrial fibrillation (principal); Z79.01 Long term (current) use of anticoagulants; Z79.899 Other long term (current) drug therapy
CPT/HCPCS: 36415; 80048; 80076; 81001; 82272; 83735; 85027; 85730

== ENCOUNTER → 2020-03-23 | Outpatient (CLI) | payer MEDICARE, OTHER ==
[2020-03-23 17:26] LABS: HEMATOCRIT 36.9 % (36.0-47.0); HEMOGLOBIN 12.3 g/dL (12.0-15.5); MEAN CORPUSCULAR HGB CONC 33.3 g/dL (32.0-36.0); MEAN CORPUSCULAR VOLUME 81 fl (80-97); PLATELET COUNT 208 10^3/uL (150-450); RED BLOOD COUNT 4.56 10^6/uL (3.72-5.28); RED CELL DISTRIBUTION WIDTH 14.3 % (11.5-14.0)
[2020-03-23 17:30] LABS: APPEARANCE,URINE CLOUDY; BILIRUBIN,URINE NEGATIVE (NEGATIVE); COLOR,URINE YELLOW; GLUCOSE, URINE NEGATIVE (NEGATIVE); KETONES,URINE NEGATIVE (NEGATIVE); LEUKOCYTE ESTERASE,URINE MODERATE (NEGATIVE); NITRITE,URINE NEGATIVE (NEGATIVE); PROTEIN,URINE NEGATIVE (NEGATIVE); URINE SPECIFIC GRAVITY 1.015; UROBILINOGEN,URINE NEGATIVE mg/dL (<2.0)
[2020-03-23 17:54] LABS: ALBUMIN 3.6 g/dL (3.5-5.0); ALKALINE PHOSPHATASE 67 U/L (38-126); ANION GAP 7 (5-19); ASPARTATE AMINO TRANSFERASE 20 U/L (14-36); BILIRUBIN,TOTAL 0.6 mg/dL (0.2-1.3); BLOOD UREA NITROGEN 13 mg/dL (7-20); CARBON DIOXIDE 25 mmol/L (22-30); CHLORIDE 108 mmol/L (98-107); GLUCOSE 89 mg/dL (75-110); POTASSIUM 4.3 mmol/L (3.6-5.0); TOTAL PROTEIN 7.6 g/dL (6.3-8.2)
== END ==
LOC: OD 15:54
PROVIDERS: ATTEND Physician Assistant
DX: I48.0 Paroxysmal atrial fibrillation (principal); Z79.01 Long term (current) use of anticoagulants; Z79.899 Other long term (current) drug therapy
CPT/HCPCS: 36415; 80048; 80076; 81001; 82272; 83735; 85027; 85730

== ENCOUNTER → 2020-04-28 | Outpatient (CLI) | payer MEDICARE, OTHER ==
--- NOTE | 2020-04-28 11:48 | WOMENS IMAGING REPORT ---
EXAM DESCRIPTION: 3D SCREENING MAMMO BILAT IMAGES COMPLETED DATE/TIME: 04/28/2020 9:39 am REASON FOR STUDY: Z12.31 ENCNTR SCREEN MAMMOGRAM FOR MALIGNANT NEOPLASM OF BREAST Z12.31 ENCNTR SCR EEN MAMMOGRAM FOR MALIGNANT NEOPLASM OF NATALIE COMPARISON: [id number] EXAM PARAMETERS: Views: Standard craniocaudal and mediolateral oblique views of each breast recorded using digital acquisition and breast tomosynthesis. Read with the assistance of CAD. .[facility] - R2 Veterans Services Specialist Version 9.2 LIMITATIONS: None. FINDINGS: No suspicious masses, suspicious calcifications or architectural distortion. No areas of c oncern. IMPRESSION: NEGATIVE MAMMOGRAM. BIRADS 1. BREAST DENSITY: b. There are scattered areas of fibroglandular density. BIRAD: ASSESSMENT: 1 NEGATIVE RECOMMENDATION: ROUTINE SCREENING COMMENT: The patient has been notified of the results by letter per MQSA requirements. Additional no tification policies are in place for contacting patient with suspicious or incomplete findings. Quality ID #225: The [employer] recommends an annual screening mammogram for women aged 40 years or over. This facility utilizes a reminder system to ensure that all patients receive reminder letters, and/or direct phone calls for appointments. This includes reminders for routine scr eening mammograms, diagnostic mammograms, or other Breast Imaging Interventions when appropriate. Th is patient will be placed in the appropriate reminder system. TECHNICAL DOCUMENTATION: FINDING NUMBER: (1) ASSESSMENT: (1) JOB ID: [id number] 2010 [employer]- All Rights Reserved Reading location - IP/workstation name: [email or web address] MANUELERLANG[facility] CAROL[facility] HOSPITALAMINAH
== END ==
LOC: WI 09:00
PROVIDERS: ATTEND Nurse Practitioner Family
DX: Z12.31 Encounter for screening mammogram for malignant neoplasm of breast (principal)
CPT/HCPCS: 77063; 77067

== ENCOUNTER 2020-05-22 13:19 | Emergency (ER) | payer MEDICARE, OTHER ==
--- NOTE | 2020-05-22 16:57 | ER Document Report ---
ED General - General TRAVEL OUTSIDE OF THE [place] IN LAST 30 DAYS: No - Related Data Home Medications: flonase. cefurozime. multaq. rosuvastatin. lisinopril. apixaban. benzonatate. fexofenadine. risperidone <JULIET ROCHA - Last Filed: 05/22/20 19:47> <MAURY MICHAUD - Last Filed: 05/23/20 06:51> - General Chief Complaint: Back Pain Stated Complaint: FLANK PAIN/COUGH/WEAKNESS Primary Care Provider: BUTCH HORTON MD [ACTIVE STAFF] - 05/25/20 Notes: Patient is a 74-year-old -[place] female with a history of atrial fibri llation and hypertension who presents to the emergency department with a chief complaint of chest pain began yesterday around 7 PM. She states the pain is been constant since onset. No provocative or palliative factors. Unable to describe the quality of the pain. Does not radiate. No history of the same. She does report that she was being treated for a recently diagnosed urinary tract infection and had fevers with that. She has had no shortness of breath or relevant coughing. No known sick contacts or recent travel or exposures to COVID-19 she is aware of. (JULIET ROCHA) - Related Data Allergies/Adverse Reactions: No Known Allergies Allergy (Verified 05/22/20 15:57) Past Medical History - Social History Smoking Status: Never Smoker Chew tobacco use (# tins/day): No Frequency of alcohol use: None Drug Abuse: None Family History: Reviewed & Not Pertinent Patient has homicidal ideation: No - Past Medical History Cardiac Medical History: Reports: Hx Hypercholesterolemia, Hx Hypertension Renal/ Medical History: Denies: Hx Peritoneal Dialysis GI Medical History: Reports: Hx Gastroesophageal Reflux Disease Psychiatric Medical History: Reports: Hx Depression <JULIET ROCHA - Last Filed: 05/22/20 19:47> Review of Systems - Review of Systems Constitutional: denies: Fever EENT: denies: Throat pain Cardiovascular: Chest pain Respiratory: denies: Cough, Short of breath Gastrointestinal: denies: Abdominal pain Genitourinary: denies: Flank pain Female Genitourinary: denies: Vaginal discharge Musculoskeletal: denies: Back pain, Neck pain Skin: denies: Change in color Hematologic/Lymphatic: denies: Easy bleeding Neurological/Psychological: denies: Headaches <JULIET ROCHA - Last Filed: 05/22/20 19:47> Physical Exam - General General appearance: Appears well, Alert In distress: None - Respiratory Respiratory status: No respiratory distress Chest status: Nontender Breath sounds: Normal Chest palpation: Normal - Cardiovascular Rhythm: Regular Heart sounds: Normal auscultation - Abdominal Inspection: Normal Distension: No distension Bowel sounds: Normal Tenderness: Nontender Organomegaly: No organomegaly - Back Back: Normal, Nontender - Extremities General upper extremity: Normal inspection, Nontender, Normal color, Normal ROM, Normal temperature General lower extremity: Normal inspection, Nontender, Normal color, Normal ROM, Normal temperature, Normal weight bearing. No: Jonatan's sign - Neurological Neuro grossly intact: Yes Cognition: Normal Orientation: AAOx4 Ebony Coma Scale Eye Opening: Spontaneous Eros Coma Scale Verbal: Oriented Eros Coma Scale Motor: Obeys Commands Eros Coma Scale Total: 15 Speech: Normal Cranial nerves: Normal Cerebellar coordination: Normal Motor strength normal: LUE, RUE, LLE, RLE Additional motor exam normals: Equal tape stringer Sensory: Normal - Psychological Associated symptoms: Normal affect, Normal mood - Skin Skin Temperature: Warm Skin Moisture: Dry Skin Color: Normal <JULIET ROCHA - Last Filed: 05/22/20 19:47> - Vital signs Vitals: Temp Pulse Resp BP Pulse Ox 98.6 F 55 L 18 148/75 H 97 05/22/20 15:56 05/22/20 15:56 05/22/20 15:56 05/22/20 15:56 05/22/20 15:56 - Cardiovascular Notes: Chest wall nontender to palpation (JULIET ROCHA) Course - Laboratory Result Diagrams: 05/22/20 16:40 05/22/20 16:40 <JULIET ROCHA - Last Filed: 05/22/20 19:47> - Laboratory Result Diagrams: 05/22/20 16:40 05/22/20 16:40 <MAURY MICHAUD - Last Filed: 05/23/20 06:51> - Re-evaluation Re-evalutation: 05/22/20 19:44 Patient remained stable in the room. She is only mildly symptomatic. Her oxygen saturations have been within normal limits on room air. She denies any history of any liver disease or significant alcohol usage. She is got a signifi cantly elevated ALT but no significant elevation in alk phos or AST. 05/22/20 19:45 She has elevated WBCs and a increased PT time slightly. She is on Eliquis for atrial fibrillation. She has had no trauma to the chest. She reports that her cough has actually been improving. I spoke with her who added that she had been coughing for about 3 weeks prior to this she saw her PCP who put her on Tessalon Perles for the cough. The cough is actually improving prior to her new symptoms over the past few days. 05/22/20 19:46 PCO2 is a little low, the patient does not appear to be hyperventilating has a normal respiratory rate. 05/22/20 19:46 Her kidney function is at baseline for her. 05/22/20 19:47 proBNP slightly elevated. 05/22/20 19:47 Large leuks and WBC in the urine. Patient was treated with Rocephin. 05/22/20 19:47 Negative urine tox screen. Pending COVID-19 swabs. 05/22/20 19:48 At this point the patient is pending results of the CT scan and pending an ultrasound of the liver for further evaluation. Suspect at this point the patient will need to be admitted and/or transfer depending on the findings of CT and ultrasound. She will be signed out to my oncoming colleague, Maury Michaud PA-C pending the studies and disposition. She is stable at this time on the monitor. (JULIET ROCHA) 05/23/20 CT of the chest showing pleural effusion, 2 cm left perihilar mass most likely, no pulmonary embolism, no concerning findings otherwise. Ultrasound of the upper abdomen unremarkable especially given her elevation of LFTs. Abdomen is soft and benign exam. Patient is surprisingly well-appearing, talkative, and has no complaints on my evaluation. She is not tachycardic, hypoxic, and shows no signs of distress. I did discuss options with patient. She requested I speak to her . I called and spoke with her , discussed details. He states that he would be fine with her either being admitted or going home with follow-up. Discussed with Dr. Sahu. I called and spoke with Dr. Horton, Oncologist beauty consultant. I did review patient's history, exam, and work-up in detail. His recommendation is that patient can be discharged home as long as she ambulates without hypoxia, distress. He requested her demographics and information and I provided this to him, he states that they will arrange to have her seen on Monday or very close to this date. Patient ambulated without any signs of distress and without any hypoxia. Patient will be treated for urinary tract infection with antibiotics, I discussed details, patient will be seen in close follow-up, discussed return precautions. Patient states understanding and agreement. Stable and well- appearing at time of discharge. (MAURY MICHAUD) - Vital Signs Vital signs: Temp Pulse Resp BP Pulse Ox 98.2 F 55 L 24 H 166/87 H 99 05/22/20 23:19 05/22/20 15:56 05/22/20 23:03 05/22/20 23:03 05/22/20 23:03 - Laboratory Laboratory results interpreted by me: 05/22/20 05/22/20 05/22/20 16:40 16:40 16:40 WBC 16.7 H RBC 5.57 H MCH 26.1 L RDW 14.7 H Absolute Neuts (auto) 10.2 H Absolute Monos (auto) 1.6 H PT Carbonic Acid ABG pH ABG pCO2 Sodium 136.6 L BUN 24 H Creatinine 1.46 H Est GFR ( Amer) 42 L Est GFR (MDRD) Non-Af 35 L Glucose 120 H AST 65 H ALT 542 H Ammonia NT-Pro-B Natriuret Pep Ur Leukocyte Esterase LARGE H 05/22/20 05/22/20 05/22/20 16:40 16:40 18:35 WBC RBC MCH RDW Absolute Neuts (auto) Absolute Monos (auto) PT 18.8 H Carbonic Acid 1.01 L ABG pH 7.46 H ABG pCO2 33.6 L Sodium BUN Creatinine Est GFR ( Amer) Est GFR (MDRD) Non-Af Glucose AST ALT Ammonia NT-Pro-B Natriuret Pep 558 H Ur Leukocyte Esterase 05/22/20 20:03 WBC RBC MCH RDW Absolute Neuts (auto) Absolute Monos (auto) PT Carbonic Acid ABG pH ABG pCO2 Sodium BUN Creatinine Est GFR ( Amer) Est GFR (MDRD) Non-Af Glucose AST ALT Ammonia < 8.7 L NT-Pro-B Natriuret Pep Ur Leukocyte Esterase Discharge <JULIET ROCHA - Last Filed: 05/22/20 19:47> <MAURY MICHAUD - Last Filed: 05/23/20 06:51> - Discharge Clinical Impression: Shortness of breath, Cough, Pleural effusion Disposition: HOME, SELF-CARE Additional Instructions: You have what appears to be a 2 cm mass in the left side of your chest and there is fluid on your lungs which appears to be coming from this. I called and spoke with Dr. Horton, Oncology, it is very important that you be seen in his office this coming week. You will be contacted by them for this appointment and for more testing and treatment. You can also call them with the number listed on yo ur discharge instructions. In addition with history of urinary tract infection, take the antibiotic as prescribed to completion. Continue your current medications. Come back if you are worse including developing fever, difficulty breathing, severe worsening pain, passing out, vomiting, or any other concerning symptoms. Prescriptions: Cephalexin Monohydrate [Keflex 500 mg Capsule] 500 mg PO BID 7 Days #14 capsule Referrals: BUTCH HORTON MD [ACTIVE STAFF] - 05/25/20
[2020-05-22 17:13] LABS: ABSOLUTE BASOPHILS # (AUTO) 0.1 10^3/uL (0.0-0.2); ABSOLUTE EOSINOPHILS # (AUTO) 0.4 10^3/uL (0.0-0.6); ABSOLUTE LYMPHOCYTES (AUTO) 4.5 10^3/uL (0.5-4.7); ABSOLUTE MONOCYTES (AUTO) 1.6 10^3/uL (0.1-1.4); ABSOLUTE NEUT (AUTO) 10.2 10^3/uL (1.7-8.2); APPEARANCE,URINE SLIGHTLY-CLOUDY; BASOPHILS % (AUTO) 0.4 % (0-2); BILIRUBIN,URINE NEGATIVE (NEGATIVE); COLOR,URINE YELLOW; EOSINOPHILS % (AUTO) 2.2 % (0-6); GLUCOSE, URINE NEGATIVE (NEGATIVE); HEMATOCRIT 44.4 % (36.0-47.0); HEMOGLOBIN 14.5 g/dL (12.0-15.5); KETONES,URINE NEGATIVE (NEGATIVE); LEUKOCYTE ESTERASE,URINE LARGE (NEGATIVE); LYMPHOCYTES % (AUTO) 27.1 % (13-45); MEAN CORPUSCULAR HEMOGLOBIN 26.1 pg (27.0-33.4); MEAN CORPUSCULAR HGB CONC 32.7 g/dL (32.0-36.0); MEAN CORPUSCULAR VOLUME 80 fl (80-97); MONOCYTES % (AUTO) 9.4 % (3-13); NITRITE,URINE NEGATIVE (NEGATIVE); PLATELET COUNT 210 10^3/uL (150-450); PROTEIN,URINE NEGATIVE (NEGATIVE); RED BLOOD COUNT 5.57 10^6/uL (3.72-5.28); RED CELL DISTRIBUTION WIDTH 14.7 % (11.5-14.0); SEGMENTED NEUTROPHILS % (AUTO) 60.9 % (42-78); TOTAL CELLS COUNTED % (AUTO) 100 %; URINE SPECIFIC GRAVITY 1.015; UROBILINOGEN,URINE NEGATIVE mg/dL (<2.0); WHITE BLOOD COUNT 16.7 10^3/uL (4.0-10.5)
[2020-05-22 17:20] LABS: INTERNATIONAL RATION (INR) 1.56; PROTHROMBIN TIME 18.8 SEC (11.4-15.4)
[2020-05-22 17:21] LABS: PARTIAL THROMBOPLASTIN TIME 28.7 SEC (23.5-35.8)
--- NOTE | 2020-05-22 17:28 | RADIOLOGY REPORT (SQ) ---
EXAM DESCRIPTION: CHEST SINGLE VIEW IMAGES COMPLETED DATE/TIME: 05/22/2020 5:19 pm REASON FOR STUDY: cp COMPARISON: 06/12/2019 EXAM PARAMETERS: NUMBER OF VIEWS: One view. TECHNIQUE: Single frontal radiographic view of the chest acquired. RADIATION DOSE: NA LIMITATIONS: None. FINDINGS: LUNGS AND PLEURA: Large left pleural effusion. MEDIASTINUM AND HILAR STRUCTURES: No masses. Contour normal. HEART AND VASCULAR STRUCTURES: Heart size is indeterminate. BONES: No acute findings. HARDWARE: None in the chest. OTHER: No other significant finding. IMPRESSION: Large left pleural effusion. TECHNICAL DOCUMENTATION: JOB ID: [id number] 2010 [employer]- All Rights Reserved Reading location - IP/workstation name: [email or web address]
[2020-05-22 17:29] LABS: ALBUMIN 3.5 g/dL (3.5-5.0); ALKALINE PHOSPHATASE 87 U/L (38-126); ANION GAP 8 (5-19); ASPARTATE AMINO TRANSFERASE 65 U/L (14-36); BILIRUBIN,TOTAL 0.6 mg/dL (0.2-1.3); BLOOD UREA NITROGEN 24 mg/dL (7-20); CALCIUM 9.1 mg/dL (8.4-10.2); CARBON DIOXIDE 27 mmol/L (22-30); CHLORIDE 102 mmol/L (98-107); CREATINE KINASE 33 U/L (30-135); GLUCOSE 120 mg/dL (75-110); POTASSIUM 4.6 mmol/L (3.6-5.0); TOTAL PROTEIN 7.2 g/dL (6.3-8.2)
[2020-05-22] MEDS ORDERED: CEFTRIAXONE 1 GM/D5W RTU 1 GM/50 ML RTUPB IV ONE (17:36)
[2020-05-22 19:03] LABS: URINE AMPHETAMINES SCREEN NEGATIVE; URINE BARBITURATES SCREEN NEGATIVE; URINE BENZODIAZEPINES SCREEN NEGATIVE; URINE COCAINE SCREEN NEGATIVE; URINE MARIJUANA (THC) SCREEN NEGATIVE; URINE METHADONE SCREEN NEGATIVE; URINE PHENCYCLIDINE SCREEN NEGATIVE
[2020-05-22 19:03] LABS: ARTERIAL BLOOD BASE EXCESS -0.1 mmol/L; ARTERIAL BLOOD H2CO3 1.01 mmol/L (1.05-1.35); ARTERIAL BLOOD HCO3 23.1 mmol/L (20-24); ARTERIAL BLOOD O2 SATURATION 96.8 % (94-98); ARTERIAL BLOOD PCO2 33.6 mmHg (35-45); ARTERIAL BLOOD PH 7.46 (7.35-7.45); ARTERIAL BLOOD PO2 83.8 mmHg (80-100); ARTERIAL BLOOD TOTAL CO2 24.1 mmol/L (21-25)
[2020-05-22 19:04] LABS: ARTERIAL BLOOD FIO2 ROOM AIR
--- NOTE | 2020-05-22 19:59 | RADIOLOGY REPORT (SQ) ---
EXAM DESCRIPTION: CTA CHEST IMAGES COMPLETED DATE/TIME: 05/22/2020 7:37 pm REASON FOR STUDY: left effusion, SOB CP COMPARISON: None. TECHNIQUE: CT scan of the chest performed using helical scanning technique with dynamic intravenous contrast injection. Images reviewed with lung, soft tissue and bone windows. Reconstructed coronal and sagittal MPR images reviewed. Additional 3 dimensional post-processing performed to develop Maximal Intensity Projection images (NV P). All images stored on PACS. All CT scanners at this facility use dose modulation, iterative reconstruction, and/or weight based d osing when appropriate to reduce radiation dose to as low as reasonably achievable (ALARA). [facility]: Dose Right [facility]: CareDose [facility]: Dose Right [facility]: Teradose 4D [facility]: JNS Towers CONTRAST TYPE AND DOSE: contrast/concentration: Isovue 350.00 mmol/ml; Total Contrast Delivered: 77. 0 ml; Total Saline Delivered: 65.0 ml Contrast bolus adequate for pulmonary arteries and aorta. RENAL FUNCTION: BUN 24 creatinine 1.46 RADIATION DOSE: CT Rad equipment meets quality standard of care and radiation dose reduction techniq ues were employed. CTDIvol: 22.1 - 26.4 mGy. DLP: 777 mGy-cm. . LIMITATIONS: None. FINDINGS: LUNGS AND PLEURA: Moderate to large left pleural effusion with considerable atelectasis in the left lower lobe. AORTA AND GREAT VESSELS: No aneurysm. No dissection. HEART: No pericardial effusion. No significant coronary artery calcifications. PULMONARY ARTERIES: No emboli visualized in the main pulmonary arteries or the segmental branches. HILAR AND MEDIASTINAL STRUCTURES: Cannot exclude a 2 cm left hilar mass. HARDWARE: None in the chest. UPPER ABDOMEN: No significant findings. Limited exam. THYROID AND OTHER SOFT TISSUES: No masses. No adenopathy. BONES: No acute or significant finding. 3D MIPS: Confirm above findings. OTHER: No other significant finding. IMPRESSION: 1. No pulmonary embolus. No aortic aneurysm or dissection. 2. Cannot exclude a 2 cm left hilar mass. 3. Moderate to large left pleural effusion with considerable left lower lobe atelectasis. COMMENT: Quality ID # [id number]: Final reports with documentation of one or more dose reduction techniques (e.g., Automated exposure control, adjustment of the mA and/or kV according to patient size, use of iterative reconstruction technique) TECHNICAL DOCUMENTATION: JOB ID: [id number] [employer]- All Rights Reserved Reading location - IP/workstation name: [email or web address]
--- NOTE | 2020-05-22 20:33 | EKG REPORT ---
SEVERITY:- ABNORMAL ECG - SINUS BRADYCARDIA 51. LEFT BUNDLE BRANCH BLOCK : Confirmed by: Car Stanley MD 22-May-2020 20:32:30
--- NOTE | 2020-05-22 21:46 | RADIOLOGY REPORT (SQ) ---
EXAM DESCRIPTION: US ABDOMEN DOPPLER LIMITED COMPLETED DATE/TME: 05/22/2020 19:14 CLINICAL HISTORY: 74 years Female liver eval. Elevated enzymes COMPARISON: None. TECHNIQUE: Transabdominal grayscale imaging were performed to evaluate the right upper quadrant. FINDINGS: The visualized thickness the pancreas are unremarkable. Aorta is normal in caliber. Distal aorta is not seen. Liver is normal in size without focal lesion noted. No evidence of gallbladder sludge or stones. No wall thickening. Patent hepatopedal portal vein. Common duct measures 4 mm. Right kidney is unremarkable without hydronephrosis. Small cortical cyst. IMPRESSION: No evidence of acute process in the right upper quadrant
[2020-05-22 23:10] VITALS: BP 166/87
== END 2020-05-22 23:19 | disposition home or self-care (01) ==
LOC: ER 13:19
DX: J90 Pleural effusion, not elsewhere classified (principal); M54.9 Dorsalgia, unspecified; R10.9 Unspecified abdominal pain; R05 Cough; R53.1 Weakness; I48.91 Unspecified atrial fibrillation; I10 Essential (primary) hypertension; E78.00 Pure hypercholesterolemia, unspecified; Z20.828 Contact with and (suspected) exposure to other viral communicable diseases; Z79.01 Long term (current) use of anticoagulants
CPT/HCPCS: 93005; 99284; 96365; 36415; 82140; 82803; 82550; 83690; 85025; 85610; 85730; 80053; 81001; 84484; 80307; 83880; 71045; 76705; 93976; 71275; 93010; U0003; J0696; C9803; 87635

== ENCOUNTER 2020-06-01 07:42 | Day surgery (SDC) | payer MEDICARE, OTHER ==
[2020-06-01 08:29] LABS: ABSOLUTE BASOPHILS # (AUTO) 0.1 10^3/uL (0.0-0.2); ABSOLUTE EOSINOPHILS # (AUTO) 0.2 10^3/uL (0.0-0.6); ABSOLUTE LYMPHOCYTES (AUTO) 1.9 10^3/uL (0.5-4.7); ABSOLUTE MONOCYTES (AUTO) 0.6 10^3/uL (0.1-1.4); ABSOLUTE NEUT (AUTO) 6.5 10^3/uL (1.7-8.2); BASOPHILS % (AUTO) 0.7 % (0-2); EOSINOPHILS % (AUTO) 2.2 % (0-6); HEMATOCRIT 35.7 % (36.0-47.0); HEMOGLOBIN 11.7 g/dL (12.0-15.5); LYMPHOCYTES % (AUTO) 20.3 % (13-45); MEAN CORPUSCULAR HEMOGLOBIN 25.7 pg (27.0-33.4); MEAN CORPUSCULAR HGB CONC 32.7 g/dL (32.0-36.0); MEAN CORPUSCULAR VOLUME 79 fl (80-97); MONOCYTES % (AUTO) 6.5 % (3-13); PLATELET COUNT 154 10^3/uL (150-450); RED BLOOD COUNT 4.54 10^6/uL (3.72-5.28); RED CELL DISTRIBUTION WIDTH 14.6 % (11.5-14.0); SEGMENTED NEUTROPHILS % (AUTO) 70.3 % (42-78); TOTAL CELLS COUNTED % (AUTO) 100 %; WHITE BLOOD COUNT 9.3 10^3/uL (4.0-10.5)
[2020-06-01 08:44] LABS: BLOOD UREA NITROGEN 15 mg/dL (7-20)
[2020-06-01 08:48] LABS: INTERNATIONAL RATION (INR) 1.15; PROTHROMBIN TIME 14.9 SEC (11.4-15.4)
[2020-06-01 08:49] LABS: PARTIAL THROMBOPLASTIN TIME 31.6 SEC (23.5-35.8)
--- NOTE | 2020-06-01 10:46 | RADIOLOGY REPORT (SQ) ---
EXAM DESCRIPTION: CHEST SINGLE VIEW IMAGES COMPLETED DATE/TIME: 06/01/2020 10:37 am REASON FOR STUDY: POST THORA LEFT PLEURAL EFFUSION COMPARISON: 05/22/2020 EXAM PARAMETERS: NUMBER OF VIEWS: One view. TECHNIQUE: Single frontal radiographic view of the chest acquired. RADIATION DOSE: NA LIMITATIONS: None. FINDINGS: LUNGS AND PLEURA: Left-sided pleural effusion has slightly increased in size. There is no pneumothorax immediately following thoracentesis. The right lung field remains clear. MEDIASTINUM AND HILAR STRUCTURES: No masses. Contour normal. HEART AND VASCULAR STRUCTURES: Heart normal in size. Normal vasculature. BONES: No acute findings. HARDWARE: None in the chest. OTHER: No other significant finding. IMPRESSION: Persistent large left pleural effusion. No pneumothorax immediately following left-side d thoracentesis. TECHNICAL DOCUMENTATION: JOB ID: [id number] 2010 [employer] All Rights Reserved Reading location - IP/workstation name: [email or web address]
[2020-06-01 12:16] LABS: FLUID APPEARANCE TURBID; FLUID COLOR RED; FLUID SOURCE LUNG; FLUID TYPE PLEURAL; FLUID VISCOSITY LIQUID
--- NOTE | 2020-06-01 12:50 | RADIOLOGY REPORT (SQ) ---
EXAM DESCRIPTION: CHEST SINGLE VIEW IMAGES COMPLETED DATE/TIME: 06/01/2020 12:40 pm REASON FOR STUDY: POST THORA LEFT PLEURAL EFFUSION COMPARISON: Earlier the same day. EXAM PARAMETERS: NUMBER OF VIEWS: One view. TECHNIQUE: Single frontal radiographic view of the chest acquired. RADIATION DOSE: NA LIMITATIONS: None. FINDINGS: LUNGS AND PLEURA: No pneumothorax 2 hours following left-sided thoracentesis. Persistent left pleural effusion. MEDIASTINUM AND HILAR STRUCTURES: No masses. Contour normal. HEART AND VASCULAR STRUCTURES: Heart normal in size. Normal vasculature. BONES: No acute findings. HARDWARE: None in the chest. OTHER: No other significant finding. IMPRESSION: No pneumothorax 2 hours following left-sided thoracentesis. TECHNICAL DOCUMENTATION: JOB ID: [id number] 2010 [employer]- All Rights Reserved Reading location - IP/workstation name: [email or web address]
[2020-06-01 13:08] VITALS: BP 145/77
--- NOTE | 2020-06-01 13:24 | RADIOLOGY REPORT (SQ) ---
EXAM DESCRIPTION: U/S THORACENTESIS WITH IMAGING IMAGES COMPLETED DATE/TIME: 06/01/2020 11:12 am REASON FOR STUDY: PLEURAL EFFUSION LEFT J90 PLEURAL EFFUSION, NOT ELSEWHERE CLASSIFIED Z79.01 HEAD START COORDINATOR (CURRENT) USE OF ANTICOAGULANTS COMPARISON: CT THE CHEST 05/22/2020 AND CHEST X-RAY 05/22/2020 RADIATION DOSE: NONE LIMITATIONS: None. PROCEDURE: Procedure, risks, benefit, and alternative explained to patient who then gave written con sent. The posterior left chest wall was marked using ultrasound guidance. A time-out was called for correct marking verification. Chest prepped and draped using sterile technique. Local anesthesia ac hieved using 8 ml of 1% lidocaine injection. A 6fr Safe-T- Centesis set was introduced into the left pleural space. Fluid was aspirated. The catheter was removed and the entry site was covered with s terile bandage. No immediate complications noted. Images acquired during the procedure were stored on PACS. FINDINGS: ENTRY SITE: posterior left chest. FLUID VOLUME: 1000 ML FLUID ANALYSIS: Dark Serosanguineous fluid OTHER: Fluid sent to the lab for testing. IMPRESSION: SUCCESSFUL THORACENTESIS USING ULTRASOUND GUIDANCE. COMMENT: Patient medication list reviewed: Yes- Quality ID# [id number]:Eligible professional attests to doc umenting in the medical record they obtained, updated, or reviewed the patient's current medications. TECHNICAL DOCUMENTATION: JOB ID: [id number] 2010 [employer]- All Rights Reserved Reading location - IP/workstation name: [email or web address]
[2020-06-02 14:08] LABS: TOTAL PROTEIN BODY FLUID 4.6 g/dL (.)
== END 2020-06-01 13:05 | disposition home or self-care (01) ==
LOC: RAD 07:42
PROVIDERS: ATTEND Internal Medicine
DX: J90 Pleural effusion, not elsewhere classified (principal); Z79.01 Long term (current) use of anticoagulants; I10 Essential (primary) hypertension; Z79.899 Other long term (current) drug therapy
CPT/HCPCS: 32555; 36415; 71045; 82565; 83615; 84132; 84157; 84520; 85025; 85610; 85730; 87070; 87075; 87205; 88305; 89050

== ENCOUNTER 2020-06-15 13:32 | Inpatient (IN) | payer MEDICARE, OTHER ==
--- NOTE | 2020-06-15 14:17 | ER Document Report ---
ED Medical Screen (RME) - General Chief Complaint: Abnormal Lab Results Stated Complaint: ABNORMAL CT SCAN/NEED LABS Time Seen by Provider: 06/15/20 14:09 Primary Care Provider: BUTCH GOODRICH MD [Primary Care Provider] - Follow up as needed Information source: Patient, Relative Notes: Patient presents from the radiology department with collapse of the left lung. Patient says shortness of breath for the past 4 days. Patient recently got diagnosed with stage IV lung cancer and does have a left pleural effusion with hilar mass. Dr. Goodrich called and is requesting patient be evaluated first in the ER within consultation with the hospitalist for admission I have greeted and performed a rapid initial assessment of this patient. A comprehensive ED assessment and evaluation of the patient, analysis of test results and completion of the medical decision making process will be conducted by additional ED providers. TRAVEL OUTSIDE OF THE [place] IN LAST 30 DAYS: No - Related Data Allergies/Adverse Reactions: No Known Allergies Allergy (Verified 06/01/20 07:54) Past Medical History - Past Medical History Cardiac Medical History: Reports: Hx Coronary Artery Disease - HIGH CHOLESTEROL, Hx Hypercholesterolemia, Hx Hypertension Denies: Hx Heart Attack Pulmonary Medical History: Denies: Hx Asthma, Hx Bronchitis, Hx COPD, Hx Pneumonia Neurological Medical History: Denies: Hx Cerebrovascular Accident, Hx Seizures Renal/ Medical History: Denies: Hx Peritoneal Dialysis GI Medical History: Reports: Hx Gastroesophageal Reflux Disease Musculoskeltal Medical History: Denies Hx Arthritis Psychiatric Medical History: Reports: Hx Depression - Immunizations Hx Diphtheria, Pertussis, Tetanus Vaccination: No Physical Exam - Vital signs Vitals: Temp Pulse Resp BP Pulse Ox 98.4 F 64 18 110/57 L 96 06/15/20 13:39 06/15/20 13:39 06/15/20 13:39 06/15/20 13:39 06/15/20 13:39 - Respiratory Respiratory status: No: Tachypnea Breath sounds: Other - Absent lung sounds on the left side Course - Vital Signs Vital signs: Temp Pulse Resp BP Pulse Ox 98.4 F 64 18 110/57 L 96 06/15/20 13:39 06/15/20 13:39 06/15/20 13:39 06/15/20 13:39 06/15/20 13:39 Doctor's Discharge - Discharge Referrals: BUTCH GOODRICH MD [Primary Care Provider] - Follow up as needed
[2020-06-15] MEDS ORDERED: FENTANYL CITRATE INJ/PF 100 MCG/2 ML AMPUL ONE (15:15)
[2020-06-15] MEDS ORDERED: MIDAZOLAM 2 MG/2 ML INJ ONE (15:15)
[2020-06-15 15:16] LABS: ABSOLUTE BASOPHILS # (AUTO) 0.1 10^3/uL (0.0-0.2); ABSOLUTE EOSINOPHILS # (AUTO) 0.3 10^3/uL (0.0-0.6); ABSOLUTE LYMPHOCYTES (AUTO) 2.8 10^3/uL (0.5-4.7); ABSOLUTE MONOCYTES (AUTO) 0.8 10^3/uL (0.1-1.4); ABSOLUTE NEUT (AUTO) 6.9 10^3/uL (1.7-8.2); BASOPHILS % (AUTO) 1.3 % (0-2); EOSINOPHILS % (AUTO) 2.3 % (0-6); HEMOGLOBIN 9.7 g/dL (12.0-15.5); LYMPHOCYTES % (AUTO) 25.5 % (13-45); MEAN CORPUSCULAR HEMOGLOBIN 26.1 pg (27.0-33.4); MEAN CORPUSCULAR HGB CONC 33.4 g/dL (32.0-36.0); MEAN CORPUSCULAR VOLUME 78 fl (80-97); MONOCYTES % (AUTO) 7.7 % (3-13); PLATELET COUNT 356 10^3/uL (150-450); RED BLOOD COUNT 3.71 10^6/uL (3.72-5.28); RED CELL DISTRIBUTION WIDTH 15.2 % (11.5-14.0); SEGMENTED NEUTROPHILS % (AUTO) 63.2 % (42-78); TOTAL CELLS COUNTED % (AUTO) 100 %
[2020-06-15 15:34] LABS: ALBUMIN 3.2 g/dL (3.5-5.0); ALKALINE PHOSPHATASE 66 U/L (38-126); ANION GAP 7 (5-19); ASPARTATE AMINO TRANSFERASE 56 U/L (14-36); BILIRUBIN,DIRECT 0.2 mg/dL (0.0-0.4); BILIRUBIN,TOTAL 0.5 mg/dL (0.2-1.3); BLOOD UREA NITROGEN 39 mg/dL (7-20); CALCIUM 8.2 mg/dL (8.4-10.2); CARBON DIOXIDE 24 mmol/L (22-30); CHLORIDE 105 mmol/L (98-107); GLUCOSE 111 mg/dL (75-110); POTASSIUM 5.6 mmol/L (3.6-5.0); TOTAL PROTEIN 6.5 g/dL (6.3-8.2)
--- NOTE | 2020-06-15 16:13 | RADIOLOGY REPORT (SQ) ---
EXAM DESCRIPTION: CHEST SINGLE VIEW IMAGES COMPLETED DATE/TIME: 06/15/2020 4:00 pm REASON FOR STUDY: POST CHEST TUBE COMPARISON: Same day CT EXAM PARAMETERS: NUMBER OF VIEWS: One view. TECHNIQUE: Single frontal radiographic view of the chest acquired. RADIATION DOSE: NA LIMITATIONS: None. FINDINGS: LUNGS AND PLEURA: Minimal left apical aeration. Persistent large left-sided pleural effus ion with near complete opacification. Mild rightward mediastinal shift. No pneumothorax post small bore left basilar chest tube placement. MEDIASTINUM AND HILAR STRUCTURES: Obscured on the left. HEART AND VASCULAR STRUCTURES: Largely obscured. BONES: No acute findings. HARDWARE: New small bore left basilar chest tube. OTHER: No other significant finding. IMPRESSION: New small bore left basilar chest tube. No appreciable pneumothorax. Minimally improve d aeration at the left lung apex with residual large effusion. TECHNICAL DOCUMENTATION: JOB ID: [id number] 2010 [employer]- All Rights Reserved Reading location - IP/workstation name: [email or web address]
[2020-06-15] MEDS ORDERED: ALBUTEROL SULFATE 0.083% NEB 2.5 MG/3 ML AMPUL NEB ONE (16:21)
--- NOTE | 2020-06-15 16:26 | RADIOLOGY REPORT (SQ) ---
EXAM DESCRIPTION: CT THORACENTESIS W/CHEST TUBE; CT NEEDLE PLACEMENT IMAGES COMPLETED DATE/TIME: 06/15/2020 4:12 pm REASON FOR STUDY: left sided effusion with slight tension pathology; LEFT SIDE EFFUSION COMPARISON: Same day CT FLUORO TIME: 2.5 seconds 3 Images saved to PACS. TECHNIQUE: Image guided chest tube placement using sterile technique. LIMITATIONS: None FINDINGS: After written consent was obtained and explaining the risks and benefits of conscious erna tion , the patient was placed supine. A time out was then called for site verification. An entry sit e was then marked using CT guidance. The anterolateral left wall was then prepped and draped in a yaz rile fashion. The site was then anesthetized using 10 ml of 1% lidocaine solution. An 11 blade scal pel was used to make a small skin incision. A 18g -7cm needle was advanced into the chest wall. A.0 38 guidewire was passed through the needle. The tract was then dilated using a 8 dilator. A 10 fr d rain was then placed over the wire. The catheter was then attached to the collection device. The en try site was covered with a sterile bandage. IV conscious sedation was administered and physician direction by the registered nurse using 50 micr ograms of fentanyl. Physiologic monitoring was provided before, during, and after sedation. The total sedation time was 30 minutes. Documentation face to face time, the performing proceduralist, spent monitoring the patient: 30minute s. Patient tolerated the procedure well left the CT suite stable condition. IMPRESSION: SUCCESSFUL PLACEMENT OF A 10 THAI LEFT SIDED CHEST TUBE USING CT GUIDANCE. COMMENT: Patient medication list reviewed: Yes- Quality ID# [id number]:Eligible professional attests to do cumenting in the medical record they obtained, updated, or reviewed the patient's current medications . Quality ID 145: Final reports for procedures using fluoroscopy that document radiation exposure lesley viki, or exposure time and number of fluorographic images (if radiation exposure indices are not avail able) TECHNICAL DOCUMENTATION: JOB ID: [id number] 2010 [employer]- All Rights Reserved rev Reading location - IP/workstation name: [email or web address]
--- NOTE | 2020-06-15 16:26 | RADIOLOGY REPORT (SQ) ---
EXAM DESCRIPTION: CT THORACENTESIS W/CHEST TUBE; CT NEEDLE PLACEMENT IMAGES COMPLETED DATE/TIME: 06/15/2020 4:12 pm REASON FOR STUDY: left sided effusion with slight tension pathology; LEFT SIDE EFFUSION COMPARISON: Same day CT FLUORO TIME: 2.5 seconds 3 Images saved to PACS. TECHNIQUE: Image guided chest tube placement using sterile technique. LIMITATIONS: None FINDINGS: After written consent was obtained and explaining the risks and benefits of conscious erna tion , the patient was placed supine. A time out was then called for site verification. An entry sit e was then marked using CT guidance. The anterolateral left wall was then prepped and draped in a yaz rile fashion. The site was then anesthetized using 10 ml of 1% lidocaine solution. An 11 blade scal pel was used to make a small skin incision. A 18g -7cm needle was advanced into the chest wall. A.0 38 guidewire was passed through the needle. The tract was then dilated using a 8 dilator. A 10 fr d rain was then placed over the wire. The catheter was then attached to the collection device. The en try site was covered with a sterile bandage. IV conscious sedation was administered and physician direction by the registered nurse using 50 micr ograms of fentanyl. Physiologic monitoring was provided before, during, and after sedation. The total sedation time was 30 minutes. Documentation face to face time, the performing proceduralist, spent monitoring the patient: 30minute s. Patient tolerated the procedure well left the CT suite stable condition. IMPRESSION: SUCCESSFUL PLACEMENT OF A 10 SLOVENIAN LEFT SIDED CHEST TUBE USING CT GUIDANCE. COMMENT: Patient medication list reviewed: Yes- Quality ID# [id number]:Eligible professional attests to do cumenting in the medical record they obtained, updated, or reviewed the patient's current medications . Quality ID 145: Final reports for procedures using fluoroscopy that document radiation exposure lesley viki, or exposure time and number of fluorographic images (if radiation exposure indices are not avail able) TECHNICAL DOCUMENTATION: JOB ID: [id number] 2010 [employer]- All Rights Reserved rev Reading location - IP/workstation name: [email or web address]
--- NOTE | 2020-06-15 16:41 | RADIOLOGY REPORT (SQ) ---
EXAM DESCRIPTION: CHEST SINGLE VIEW IMAGES COMPLETED DATE/TIME: 06/15/2020 4:29 pm REASON FOR STUDY: POST CHEST TUBE COMPARISON: Same day radiograph EXAM PARAMETERS: NUMBER OF VIEWS: One view. TECHNIQUE: Single frontal radiographic view of the chest acquired. RADIATION DOSE: NA LIMITATIONS: None. FINDINGS: LUNGS AND PLEURA: Improved aeration of the left upper lung with decreased size of the pleu ral fluid. No definitive pneumothorax. Unchanged small bore left basilar chest tube. Unchanged rig ht hemithorax. MEDIASTINUM AND HILAR STRUCTURES: Stable. HEART AND VASCULAR STRUCTURES: Stable. BONES: No acute findings. HARDWARE: Small bore left basilar chest tube. OTHER: No other significant finding. IMPRESSION: Continued improved aeration of the left lung apex post chest tube placement. No appreci able pneumothorax. TECHNICAL DOCUMENTATION: JOB ID: [id number] 2010 [employer]- All Rights Reserved Reading location - IP/workstation name: [email or web address]
--- NOTE | 2020-06-15 17:38 | ER Document Report ---
ED General - General Chief Complaint: Shortness Of Breath Stated Complaint: ABNORMAL CT SCAN/NEED LABS Time Seen by Provider: 06/15/20 14:09 Primary Care Provider: BUTCH GOODRICH MD [Primary Care Provider] - Follow up as needed Notes: 74-year-old female presents emergency department from Dr. Godfrey's office and fr radiology after presenting for CT scan of the chest to further evaluate a left lung mass. Patient has been recently diagnosed with lung cancer but they have been unable to get a biopsy. Patient is known to have a left-sided pleural effusion, had a small amount drained 1 to 2 weeks ago, was sent in today to have the CAT scan performed to get a better look at the mass however the effusion was so large that it was recommended she come to the emergency department to have it drained and potentially reimaged. Patient does complain of some pain to the incision from the drainage last week on the left side of her chest that is being well controlled with acetaminophen. She has not yet started chemo or radiation. Admits mild shortness of breath. Denies cough or fevers. TRAVEL OUTSIDE OF THE [place] IN LAST 30 DAYS: No - Related Data Allergies/Adverse Reactions: No Known Allergies Allergy (Verified 06/01/20 07:54) Home Medications: son has list on phone with family member, not accessible by staff without son assistance Past Medical History - General Information source: Patient, Relative - Social History Smoking Status: Never Smoker Chew tobacco use (# tins/day): No Frequency of alcohol use: None Drug Abuse: None Family History: Reviewed & Not Pertinent Patient has homicidal ideation: No - Past Medical History Cardiac Medical History: Reports: Hx Coronary Artery Disease - HIGH CHOLESTEROL, Hx Hypercholesterolemia, Hx Hypertension Denies: Hx Heart Attack Pulmonary Medical History: Denies: Hx Asthma, Hx Bronchitis, Hx COPD, Hx Pneumonia Neurological Medical History: Denies: Hx Cerebrovascular Accident, Hx Seizures Renal/ Medical History: Denies: Hx Peritoneal Dialysis GI Medical History: Reports: Hx Gastroesophageal Reflux Disease Musculoskeletal Medical History: Denies Hx Arthritis Psychiatric Medical History: Reports: Hx Depression - Immunizations Hx Diphtheria, Pertussis, Tetanus Vaccination: No Review of Systems - Review of Systems Constitutional: No symptoms reported EENT: No symptoms reported Cardiovascular: See HPI, Chest pain - From the incision. Respiratory: denies: Cough, Hurts to breathe, Short of breath Gastrointestinal: No symptoms reported -: Yes All other systems reviewed and negative Physical Exam - Vital signs Vitals: Temp Pulse Resp BP Pulse Ox 98.4 F 64 18 110/57 L 96 06/15/20 13:39 06/15/20 13:39 06/15/20 13:39 06/15/20 13:39 06/15/20 13:39 Interpretation: Normal - Notes Notes: GENERAL: Alert, interacts well. No acute distress. HEAD: Normocephalic, atraumatic EYES: Pupils equal, round and reactive to light, extraocular movements intact. ENT: Oral mucosa moist, tongue midline. NECK: Full range of motion, supple, trachea midline. LUNGS: Decreased breath sounds on the left, expiratory wheezing bilaterally, no respiratory distress. HEART: Regular rate and rhythm, no murmurs, gallops, rubs. ABDOMEN: Soft, nontender, nondistended, bowel sounds present in all 4 quadrants. EXTREMITIES: Moves all 4 extremities spontaneously, no edema, radial and dorsalis pedis pulses 2/4 bilaterally. No cyanosis. NEUROLOGICAL: Alert and oriented x3, normal speech, prefers not to talk however is able to talk without difficulty when asked to. PSYCH: Normal mood, normal affect. SKIN: Warm, Dry, normal turgor. Course - Re-evaluation Re-evalutation: 06/15/20 17:04 CT shows could moving collapse of the left lung, phone call from Dr. Master jarvis from oncology as well as radiology communicated that they are concerned for possible tension physiology from the pleural effusion, they do need to completely drain so that they can better visualize the mass however they do not think this will be able to be achieved in 1 session given how large the pleural effusion is. The patient then had a 10 Guamanian chest tube placed by radiology and it rapidly drained 1700 mL of dark bloody fluid. Chest tube has since been clamped off, but patient did become hypoxic and developed a cough. Patient is doing well on on-rebreather and an albuterol breathing treatment. Blood work shows worsening anemia that does not currently need a transfusion and some acute renal failure. Discussed with Dr. Juarez and Dr. Christianson as well as Doreen Daniel NP. Patient was accepted by Ms. Daniel. Patient will be admitted to the [facility] given her hypoxia and the need for close monitoring. 06/15/20 18:02 Chest X-Ray 06/15/20 00:00 IMPRESSION: New small bore left basilar chest tube. No appreciable pneumothorax. Minimally improved aeration at the left lung apex with residual large effusion. Guidance Needle Placement CT 06/15/20 00:00 IMPRESSION: SUCCESSFUL PLACEMENT OF A 10 ISRAELI LEFT SIDED CHEST TUBE USING CT GUIDANCE. Thoracentesis 06/15/20 14:50 IMPRESSION: SUCCESSFUL PLACEMENT OF A 10 ISRAELI LEFT SIDED CHEST TUBE USING CT GUIDANCE. Chest X-Ray 06/15/20 17:45 IMPRESSION: Continued improved aeration of the left lung apex post chest tube placement. No appreciable pneumothorax. - Vital Signs Vital signs: Temp Pulse Resp BP Pulse Ox 98.4 F 64 28 H 105/54 L 99 06/15/20 13:39 06/15/20 13:39 06/15/20 15:00 06/15/20 15:01 06/15/20 15:09 - Laboratory Result Diagrams: 06/15/20 15:02 06/15/20 15:02 Laboratory results interpreted by me: 06/15/20 06/15/20 15:02 15:02 WBC 11.0 H RBC 3.71 L Hgb 9.7 L Hct 29.0 L MCV 78 L MCH 26.1 L RDW 15.2 H Sodium 135.8 L Potassium 5.6 H BUN 39 H Creatinine 2.98 H Est GFR ( Amer) 19 L Est GFR (MDRD) Non-Af 15 L Glucose 111 H Calcium 8.2 L AST 56 H ALT 67 H Albumin 3.2 L Discharge - Discharge Clinical Impression: Left-sided pleural effusion, Hemothorax, left Cancer of left lung Qualifiers: Lung location: unspecified part of lung Qualified Code(s): C34.92 - Malignant neoplasm of unspecified part of left bronchus or lung Condition: Fair Disposition: ADMITTED INPATIENT Admitting Provider: Sammy (Hospitalist) - [place] Unit Admitted: I[facility]U Referrals: BUTCH GOODRICH MD [Primary Care Provider] - Follow up as needed
[2020-06-15] MEDS ORDERED: ACETAMINOPHEN 325 MG TABLET PO ONE (17:42)
--- NOTE | 2020-06-15 18:21 | RADIOLOGY REPORT (SQ) ---
EXAM DESCRIPTION: CHEST SINGLE VIEW IMAGES COMPLETED DATE/TIME: 06/15/2020 4:57 pm REASON FOR STUDY: 2 HR - POST CHEST TUBE. COMPARISON: Chest radiograph, same date at 1618 hours. Chest radiograph, same date, [address] guided chest tube placement, same date. CT abdomen and pelvis, same date. , EXAM PARAMETERS: NUMBER OF VIEWS: One view. TECHNIQUE: Single frontal radiographic view of the chest acquired. RADIATION DOSE: NA LIMITATIONS: None. FINDINGS: LUNGS AND PLEURA: There is a moderate left pleural effusion, stable from prior. Compressi ve atelectasis/ consolidation at the left lung base, unchanged. Right lung remains clear. Tiny left apical pneumothorax. MEDIASTINUM AND HILAR STRUCTURES: No masses. Contour normal. HEART AND VASCULAR STRUCTURES: Heart normal in size. Normal vasculature. BONES: No acute findings. HARDWARE: A left basilar chest tube is in place. OTHER: No other significant finding. IMPRESSION: Left basilar chest tube with moderate left hydropneumothorax, stable. Right lung remain s clear. TECHNICAL DOCUMENTATION: JOB ID: [id number] 2010 [employer]- All Rights Reserved Reading location - IP/workstation name: [email or web address]
[2020-06-15] MEDS ORDERED: MAG HYDROX/AL HYDROX/SIMETH SUSP 30 ML UDCUP PO PRN (18:56)
[2020-06-15] MEDS ORDERED: ALBUTEROL SULFATE 0.083% NEB 2.5 MG/3 ML AMPUL NEB PRN (18:56)
[2020-06-15] MEDS ORDERED: ONDANSETRON HCL INJ/PF 4 MG/2 ML SDV IV PRN (18:56)
[2020-06-15] MEDS ORDERED: PROMETHAZINE HCL INJ 25 MG/1 ML VIAL IV PRN (18:56)
[2020-06-15 19:08] LABS: APPEARANCE,URINE SLIGHTLY-CLOUDY; BILIRUBIN,URINE NEGATIVE (NEGATIVE); COLOR,URINE YELLOW; GLUCOSE, URINE NEGATIVE (NEGATIVE); KETONES,URINE NEGATIVE (NEGATIVE); LEUKOCYTE ESTERASE,URINE SMALL (NEGATIVE); NITRITE,URINE NEGATIVE (NEGATIVE); PROTEIN,URINE NEGATIVE (NEGATIVE); URINE SPECIFIC GRAVITY 1.038; UROBILINOGEN,URINE NEGATIVE mg/dL (<2.0)
--- NOTE | 2020-06-15 19:10 | PDOC H&P ---
History of Present Illness Admission Date/PCP: 06/15/20 18:27 BUTCH GOODRICH MD Patient complains of: Dyspnea History of Present Illness: ALETHEA CRANE is a 74 year old female with a past medical history significant for atrial fibrillation, anticoagulated on Eliquis, hypertension, hyperlipidemia, and recent diagnosis of lung cancer who presented [facility] the [facility] department from Dr. Goodrich's office for left-sided pleural effusion. Evaluation in the emergency department revealed initial tachypnea, improved following chest tube placement and drainage of pleural effusion, but otherwise stable vital signs. Patient was noted to have mild leukocytosis (W BC is 11), mild anemia (hemoglobin 9.7), and chemistry remarkable for mild hyponatremia, hyperkalemia, and acute kidney injury with creatinine 2.98/BUN 39. Spine interventional radiology was consulted for thoracentesis; now status post 10 Telugu chest tube placement draining sanguinous fluid; greater than 2 L out at this time. She is referred to the hospitalist service for further evaluation management of the above-stated complaints and findings. Past Medical History Cardiac Medical History: Reports: Atrial Fibrillation, Hyperlipidema, Hypertension Denies: Myocardial Infarction Pulmonary Medical History: Denies: Asthma, Bronchitis, Chronic Obstructive Pulmonary Disease (COPD), Pneumonia EENT Medical History: Reports: None Neurological Medical History: Denies: Seizures Endocrine Medical History: Reports: Obesity Denies: Diabetes Mellitus Type 2, Hypothyroidism Renal/ Medical History: Reports: Chronic Kidney Disease Malignancy Medical History: Reports: Lung Cancer GI Medical History: Reports: Gastroesophageal Reflux Disease Musculoskeltal Medical History: Denies: Arthritis Skin Medical History: Reports: None Psychiatric Medical History: Reports: Depression Traumatic Medical History: Reports: None Hematology: Denies: Anemia Infectious Medical History: Reports: None Past Surgical History Past Surgical History: Reports: None Social History Information Source: Patient, Relative, [facility] Records Lives with: Family Smoking Status: Never Smoker Electronic Cigarette use?: No Frequency of Alcohol Use: None Hx Recreational Drug Use: No Hx Prescription Drug Abuse: No - Advance Directive Resuscitation Status: Full Code Family History Family History: Reviewed & Not Pertinent Parental Family History Reviewed: Yes Children Family History Reviewed: Yes Sibling(s) Family History Reviewed.: Yes Medication/Allergy Home Medications: Lisinopril/Hydrochlorothiazide [Lisinopril-Hctz 20-12.5 mg Tab] 1 each PO DAILY 03/16/14 Risperidone 1 mg PO TID 03/17/14 Rosuvastatin Calcium [Crestor 20 mg Tablet] 20 mg PO DAILY #90 tablet 03/17/14 Apixaban [Eliquis 2.5 mg Tablet] 2.5 mg PO DAILY 06/01/20 Allergies/Adverse Reactions: No Known Allergies Allergy (Verified 06/01/20 07:54) Review of Systems Constitutional: PRESENT: anorexia, fatigue. ABSENT: chills, fever(s), headache(s), weight gain, weight loss Eyes: ABSENT: visual disturbances Ears: ABSENT: hearing changes Cardiovascular: ABSENT: chest pain, dyspnea on exertion, edema, orthropnea, palpitations Respiratory: PRESENT: cough, dyspnea. ABSENT: hemoptysis Gastrointestinal: ABSENT: abdominal pain, constipation, diarrhea, hematemesis, hematochezia, nausea, vomiting Genitourinary: ABSENT: dysuria, hematuria Musculoskeletal: ABSENT: joint swelling Integumentary: ABSENT: rash, wounds Neurological: ABSENT: abnormal gait, abnormal speech, confusion, dizziness, focal weakness, syncope Psychiatric: ABSENT: anxiety, depression, homidical ideation, suicidal ideation Endocrine: ABSENT: cold intolerance, heat intolerance, polydipsia, polyuria Hematologic/Lymphatic: ABSENT: easy bleeding, easy bruising Physical Exam Vital Signs: Temp Pulse Resp BP Pulse Ox 98.4 F 64 23 H 129/69 H 100 06/15/20 13:39 06/15/20 13:39 06/15/20 18:01 06/15/20 18:01 06/15/20 18:01 Intake & Output 06/14/20 06/15/20 06/16/20 06:59 06:59 06:59 Weight 81.647 kg General appearance: PRESENT: no acute distress, cooperative, well-developed, well-nourished - Overweight Head exam: PRESENT: atraumatic, normocephalic Eye exam: PRESENT: conjunctiva pink, EOMI, PERRLA. ABSENT: scleral icterus Mouth exam: PRESENT: dry mucosa, tongue midline Respiratory exam: PRESENT: chest wall tenderness - At left chest tube site, clear to auscultation gwendolyn, decreased breath sounds - Absent left lower gross otherwise diminished throughout. Poor inspiratory effort., symmetrical, unlabored, other - Supplemental oxygen by nasal cannula. ABSENT: rales, rhonchi, wheezes Cardiovascular exam: PRESENT: RRR. ABSENT: diastolic murmur, rubs, systolic murmur Pulses: PRESENT: normal dorsalis pedis pul Vascular exam: PRESENT: normal capillary refill GI/Abdominal exam: PRESENT: normal bowel sounds, soft. ABSENT: distended, guarding, mass, organolmegaly, rebound, tenderness Rectal exam: PRESENT: deferred Extremities exam: PRESENT: full ROM. ABSENT: calf tenderness, clubbing, pedal edema Neurological exam: PRESENT: alert, awake, oriented to person, oriented to place, oriented to time, oriented to situation, CN II-XII grossly intact. ABSENT: motor sensory deficit Psychiatric exam: PRESENT: appropriate affect, normal mood. ABSENT: homicidal ideation, suicidal ideation Skin exam: PRESENT: dry, intact, warm. ABSENT: cyanosis, rash Results Laboratory Results: 06/15/20 15:02 06/15/20 15:02 06/15/20 06/15/20 15:02 15:02 WBC 11.0 H RBC 3.71 L Hgb 9.7 L Hct 29.0 L MCV 78 L MCH 26.1 L MCHC 33.4 RDW 15.2 H Plt Count 356 Seg Neutrophils % 63.2 Sodium 135.8 L Potassium 5.6 H Chloride 105 Carbon Dioxide 24 Anion Gap 7 BUN 39 H Creatinine 2.98 H Est GFR ( Amer) 19 L Glucose 111 H Calcium 8.2 L Total Bilirubin 0.5 AST 56 H Alkaline Phosphatase 66 Total Protein 6.5 Albumin 3.2 L Impressions: Guidance Needle Placement CT 06/15/20 00:00 IMPRESSION: SUCCESSFUL PLACEMENT OF A 10 LIBYAN LEFT SIDED CHEST TUBE USING CT GUIDANCE. Thoracentesis 06/15/20 14:50 IMPRESSION: SUCCESSFUL PLACEMENT OF A 10 LIBYAN LEFT SIDED CHEST TUBE USING CT GUIDANCE. Chest X-Ray 06/15/20 17:45 IMPRESSION: Continued improved aeration of the left lung apex post chest tube placement. No appreciable pneumothorax. Assessment and Plan - Diagnosis (1) DESTINY (acute kidney injury) Is this a current diagnosis for this admission?: Yes Plan: Prerenal secondary to poor p.o. intake. Patient is provided generous IV fluids. Avoid nephrotoxic medications as able. Renally dosed where appropriate. Veltassa for hyperkalemia. Strict I's and O's. Follow-up chemistry. (2) Hemothorax, left Is this a current diagnosis for this admission?: Yes Plan: 10 Telugu chest tube to left chest; >2L sanguinous fluid output. Cytology pending Oncology consulted. (3) Cancer of left lung Qualifiers: Lung location: unspecified part of lung Qualified Code(s): C34.92 - Malignant neoplasm of unspecified part of left bronchus or lung Is this a current diagnosis for this admission?: Yes Plan: Primary management per oncology; consultation placed. (4) Hypertension Is this a current diagnosis for this admission?: Yes Plan: Blood pressures are currently acceptable. Resume home medication regiment once reconciled. Prerenal diet. (5) Atrial fibrillation Qualifiers: Atrial fibrillation type: longstanding persistent Qualified Code(s): I48.11 - Longstanding persistent atrial fibrillation Is this a current diagnosis for this admission?: Yes Plan: The patient's home medications will be continued once reconciled. Holding Eliquis due to chest tube placement and sanguinous fluid; resume following discussion with oncology. At this time, the patient's [id number] SCore is 3; risks of continued anticoagulation likely outweigh benefit. Monitor on telemetry. (6) Chronic anticoagulation Is this a current diagnosis for this admission?: Yes Plan: Home dose Eliquis being held as mentioned above. (7) Hyperkalemia Is this a current diagnosis for this admission?: Yes Plan: Secondary to DESTINY. Veltassa. Follow-up chemistry - Time Time Spent with patient: 35 or more minutes Medications reviewed and adjusted accordingly: Yes Anticipated Discharge Disposition: Home with Home Health Anticipated Discharge Timeframe: within 72 hours - Inpatient Certification Based on my medical assessment, after consideration of the patient's comorbidities, presenting symptoms, or acuity I expect that the services needed warrant INPATIENT care.: Yes I certify that my determination is in accordance with my understanding of Medicare's requirements for reasonable and necessary INPATIENT services [42 CFR 412.3e].: Yes Medical Necessity: Need For IV Fluids, Need for Surgery
[2020-06-15] MEDS: ALBUTEROL SULFATE 0.083% NEB 2.5 MG/3 ML AMPUL NEB SCH (20:04)
[2020-06-15] MEDS: NORMAL SALINE 1000 ML 1,000 ML IV PRN (22:00)
[2020-06-15] MEDS: FAMOTIDINE 20 MG TABLET PO SCH (22:33)
[2020-06-16] MEDS: ALBUTEROL SULFATE 0.083% NEB 2.5 MG/3 ML AMPUL NEB SCH ×4 (02:19→21:04)
[2020-06-16] MEDS: NORMAL SALINE 1000 ML 1,000 ML IV PRN ×3 (04:41→21:22)
[2020-06-16 04:45] LABS: HEMATOCRIT 24.1 % (36.0-47.0); MEAN CORPUSCULAR HEMOGLOBIN 25.7 pg (27.0-33.4); MEAN CORPUSCULAR VOLUME 78 fl (80-97); PLATELET COUNT 245 10^3/uL (150-450); RED BLOOD COUNT 3.09 10^6/uL (3.72-5.28); RED CELL DISTRIBUTION WIDTH 15.2 % (11.5-14.0); WHITE BLOOD COUNT 8.3 10^3/uL (4.0-10.5)
[2020-06-16 05:08] LABS: BLOOD UREA NITROGEN 35 mg/dL (7-20); CALCIUM 7.4 mg/dL (8.4-10.2); GLUCOSE 101 mg/dL (75-110); POTASSIUM 5.2 mmol/L (3.6-5.0)
[2020-06-16 05:10] LABS: HEMOGLOBIN 7.9 g/dL (12.0-15.5)
[2020-06-16 05:13] LABS: ANION GAP 5 (5-19); CARBON DIOXIDE 24 mmol/L (22-30); CHLORIDE 109 mmol/L (98-107)
[2020-06-16] MEDS: ACETAMINOPHEN 325 MG TABLET PO PRN ×3 (06:51→21:21)
--- NOTE | 2020-06-16 08:27 | PDOC CONSULTATION ---
Consultation Consult Date: 06/16/20 Attending physician:: BILLIE BENAVIDES Provider Consulted: BUTCH GOODRICH Consult reason:: Patient well-known to oncology clinic with newly diagnosed left lung cancer with left malignant effusion. History of Present Illness Admission Date/PCP: 06/15/20 18:27 BUTCH GOODRICH MD Patient complains of: Severe shortness of breath, weakness, poor p.o. intake History of Present Illness: ALETHEA CRANE is a 74 year old female with newly diagnosed left lung cancer. She presented to us about 2 weeks ago with newly noted left hilar mass with left pleural effusion. She is a never smoker. Ultimately we had thoracentesis done about 2 weeks ago with about 1.5 L out, and cells diagnostic of adenocarcinoma consistent with lung primary was noted. Further next generation sequencing is pending. She saw us last week for results and she was planned for further thoracentesis yesterday but upon presentation on x-ray there was a full left hemo hydrothorax, so interventional radiology felt pigtail catheter placement was the best option along with admission. Patient was admitted and thus far has had about 2 L of serosanguineous fluid out. She feels much better, looks much better. Unfortunately also on presentation her creatinine had increased to 2.5, and baseline is about 1.5. She has had poor p.o. intake with poor hydration as well as shortness of breath, so prerenal azotemia is likely. In addition her hemoglobin is fallen from the 9 range to 7.9. Past Medical History Cardiac Medical History: Reports: Atrial Fibrillation, Coronary Artery Disease - HIGH CHOLESTEROL, Hyperlipidema, Hypertension Denies: Myocardial Infarction Pulmonary Medical History: Denies: Asthma, Bronchitis, Chronic Obstructive Pulmonary Disease (COPD), Pneumonia EENT Medical History: Reports: None Neurological Medical History: Denies: Seizures Endocrine Medical History: Reports: Obesity Denies: Diabetes Mellitus Type 2, Hypothyroidism Renal/ Medical History: Reports: Chronic Kidney Disease Malignancy Medical History: Reports: Lung Cancer GI Medical History: Reports: Gastroesophageal Reflux Disease Musculoskeltal Medical History: Denies: Arthritis Skin Medical History: Reports: None Psychiatric Medical History: Reports: Depression Traumatic Medical History: Reports: None Hematology: Denies: Anemia Infectious Medical History: Reports: None Past Surgical History Past Surgical History: Reports: Other - Thoracentesis Social History Information Source: Patient, Relative Lives with: Family Smoking Status: Never Smoker Electronic Cigarette use?: No Frequency of Alcohol Use: None Hx Recreational Drug Use: No Drugs: None Hx Prescription Drug Abuse: No - Advance Directive Resuscitation Status: Full Code Family History Family History: Reviewed & Not Pertinent Parental Family History Reviewed: Yes Children Family History Reviewed: Yes Sibling(s) Family History Reviewed.: Yes Medication/Allergy Home Medications: Rosuvastatin Calcium [Crestor 20 mg Tablet] 20 mg PO DAILY #90 tablet 03/17/14 Apixaban [Eliquis] 5 mg PO BID 06/15/20 Dronedarone Hydrochloride [Multaq 400 Mg Tablet] 400 mg PO BID 06/15/20 Folic Acid [Folvite 1 mg Tablet] 1 mg PO DAILY 06/15/20 Lisinopril [Prinivil] 20 mg PO DAILY 06/15/20 Magnesium Oxide [Magnesium] 400 mg PO DAILY 06/15/20 Metoprolol Tartrate [Lopressor] 75 mg PO DAILY 06/15/20 Allergies/Adverse Reactions: No Known Allergies Allergy (Verified 06/01/20 07:54) Review of Systems Constitutional: ABSENT: chills, fever(s), headache(s), weight gain, weight loss Eyes: ABSENT: visual disturbances Ears: ABSENT: hearing changes Cardiovascular: ABSENT: chest pain, dyspnea on exertion, edema, orthropnea, palpitations Respiratory: ABSENT: cough, hemoptysis Gastrointestinal: ABSENT: abdominal pain, constipation, diarrhea, hematemesis, hematochezia, nausea, vomiting Genitourinary: ABSENT: dysuria, hematuria Musculoskeletal: ABSENT: joint swelling Integumentary: ABSENT: rash, wounds Neurological: ABSENT: abnormal gait, abnormal speech, confusion, dizziness, focal weakness, syncope Psychiatric: ABSENT: anxiety, depression, homidical ideation, suicidal ideation Endocrine: ABSENT: cold intolerance, heat intolerance, polydipsia, polyuria Hematologic/Lymphatic: ABSENT: easy bleeding, easy bruising Physical Exam Vital Signs: Temp Pulse Resp BP Pulse Ox 98.2 F 72 16 95/60 L 93 06/16/20 07:51 06/16/20 07:00 06/16/20 04:26 06/16/20 04:26 06/16/20 04:26 Intake & Output 06/15/20 06/16/20 06/17/20 06:59 06:59 06:59 Intake Total 1250 Output Total 0 Balance 1250 Weight 90.1 kg General appearance: PRESENT: no acute distress, well-developed, well-nourished Head exam: PRESENT: atraumatic, normocephalic Eye exam: PRESENT: conjunctiva pink, EOMI, PERRLA. ABSENT: scleral icterus Ear exam: PRESENT: normal external ear exam Mouth exam: PRESENT: moist, tongue midline Neck exam: ABSENT: carotid bruit, JVD, lymphadenopathy, thyromegaly Respiratory exam: PRESENT: clear to auscultation gwendolyn. ABSENT: rales, rhonchi, wheezes Cardiovascular exam: PRESENT: RRR. ABSENT: diastolic murmur, rubs, systolic murmur Pulses: PRESENT: normal dorsalis pedis pul Vascular exam: PRESENT: normal capillary refill GI/Abdominal exam: PRESENT: normal bowel sounds, soft. ABSENT: distended, guarding, mass, organolmegaly, rebound, tenderness Rectal exam: PRESENT: deferred Extremities exam: PRESENT: full ROM. ABSENT: calf tenderness, clubbing, pedal edema Neurological exam: PRESENT: alert, awake, oriented to person, oriented to place, oriented to time, oriented to situation, CN II-XII grossly intact. ABSENT: motor sensory deficit Psychiatric exam: PRESENT: appropriate affect, normal mood. ABSENT: homicidal ideation, suicidal ideation Skin exam: PRESENT: dry, intact, warm. ABSENT: cyanosis, rash Results Laboratory Results: 06/16/20 03:51 06/16/20 03:51 06/15/20 06/15/20 06/15/20 15:02 15:02 18:40 WBC 11.0 H RBC 3.71 L Hgb 9.7 L Hct 29.0 L MCV 78 L MCH 26.1 L MCHC 33.4 RDW 15.2 H Plt Count 356 Seg Neutrophils % 63.2 Sodium 135.8 L Potassium 5.6 H Chloride 105 Carbon Dioxide 24 Anion Gap 7 BUN 39 H Creatinine 2.98 H Est GFR ( Amer) 19 L Glucose 111 H Calcium 8.2 L Total Bilirubin 0.5 AST 56 H Alkaline Phosphatase 66 Total Protein 6.5 Albumin 3.2 L Urine Color YELLOW Urine Appearance SLIGHTLY-CLOUDY Urine pH 5.0 Ur Specific [place] 1.038 Urine Protein NEGATIVE Urine Glucose (UA) NEGATIVE Urine Ketones NEGATIVE Urine Blood SMALL H Urine Nitrite NEGATIVE Ur Leukocyte Esterase SMALL H Urine WBC (Auto) 22 Urine RBC (Auto) 2 06/16/20 06/16/20 03:51 03:51 WBC 8.3 RBC 3.09 L Hgb 7.9 L Hct 24.1 L MCV 78 L MCH 25.7 L MCHC 33.0 RDW 15.2 H Plt Count 245 Seg Neutrophils % Sodium 137.5 Potassium 5.2 H Chloride 109 H Carbon Dioxide 24 Anion Gap 5 BUN 35 H Creatinine 2.43 H Est GFR ( Amer) 24 L Glucose 101 Calcium 7.4 L Total Bilirubin AST Alkaline Phosphatase Total Protein Albumin Urine Color Urine Appearance Urine pH Ur Specific [place] Urine Protein Urine Glucose (UA) Urine Ketones Urine Blood Urine Nitrite Ur Leukocyte Esterase Urine WBC (Auto) Urine RBC (Auto) Impressions: Guidance Needle Placement CT 06/15/20 00:00 IMPRESSION: SUCCESSFUL PLACEMENT OF A 10 [place] LEFT SIDED CHEST TUBE USING CT GUIDANCE. Thoracentesis 06/15/20 14:50 IMPRESSION: SUCCESSFUL PLACEMENT OF A 10 [place] LEFT SIDED CHEST TUBE USING CT GUIDANCE. Status: Image reviewed by me Assessment & Plan - Diagnosis (1) Malignant pleural effusion Is this a current diagnosis for this admission?: Yes Plan: Pigtail catheter placed, spoke with Dr. Garcia to consider Pleurx catheter placement. He will be seeing her today and he will try and find OR space for that. (2) Cancer of left lung Qualifiers: Lung location: hilum of lung Qualified Code(s): C34.02 - Malignant neoplasm of left main bronchus Is this a current diagnosis for this admission?: Yes Plan: Left hilar mass, likely a primary lung cancer, given the pleural involvement it would officially be stage IV. But there is no other distant disease noted. To that extent, we would like port placement. And I was planning her for consideration of carbo/Alimta/Keytruda. If Pleurx catheter and port can be placed we could initiate chemotherapy by next week. (3) DESTINY (acute kidney injury) Is this a current diagnosis for this admission?: Yes Plan: Probable acute on chronic, and looking back her creatinine is around 1.5 at baseline. Continue aggressive hydration, it is certainly because of poor p.o. intake and dehydration that is the cause. (4) Atrial fibrillation Qualifiers: Atrial fibrillation type: longstanding persistent Qualified Code(s): I48.11 - Longstanding persistent atrial fibrillation Is this a current diagnosis for this admission?: Yes Plan: Anticoagulation has been held, should be held until procedure is complete, it was held for several days prior to admission (5) Anemia Qualifiers: Anemia type: iron deficiency Iron deficiency anemia type: chronic blood loss Qualified Code(s): D50.0 - Iron deficiency anemia secondary to blood loss (chronic) Is this a current diagnosis for this admission?: Yes Plan: We will add iron studies today but probable secondary to blood loss from hemothorax, if iron levels low plan for IV iron. If hemoglobin gets under 7 plan for transfusion. - Time Time Spent: Greater than 70 Minutes - Inpatient Certification Based on my medical assessment, after consideration of the patient's comorbidities, presenting symptoms, or acuity I expect that the services needed warrant INPATIENT care.: Yes I certify that my determination is in accordance with my understanding of Medicare's requirements for reasonable and necessary INPATIENT services [42 CFR 412.3e].: Yes Medical Necessity: Need For IV Fluids, Need for Surgery, Risk of Complication if Not Cared For in Hospital
[2020-06-16 08:42] LABS: ABSOLUTE RETICS # 0.057 10^6/uL (0.028-0.122); RETICULOCYTE COUNT (AUTO) 1.86 % (0.66-2.85)
[2020-06-16] MEDS: DOCUSATE SODIUM 100 MG CAPSULE PO SCH (09:06)
[2020-06-16] MEDS: FAMOTIDINE 20 MG TABLET PO SCH ×2 (09:06→21:20)
[2020-06-16 10:03] LABS: IRON(TIBC) < 10.1 ug/dL (37-170)
--- NOTE | 2020-06-16 10:15 | RADIOLOGY REPORT (SQ) ---
EXAM DESCRIPTION: CHEST SINGLE VIEW IMAGES COMPLETED DATE/TIME: 06/16/2020 8:48 am REASON FOR STUDY: dyspnea, pleural effusion COMPARISON: 06/15/2020. EXAM PARAMETERS: NUMBER OF VIEWS: One view. TECHNIQUE: Single frontal radiographic view of the chest acquired. RADIATION DOSE: NA LIMITATIONS: None. FINDINGS: LUNGS AND PLEURA: Stable left chest tube. Decrease in the left pleural effusion with patc hy airspace disease in the left lower lobe. No pneumothorax. Right lung clear. MEDIASTINUM AND HILAR STRUCTURES: No masses. Contour normal. HEART AND VASCULAR STRUCTURES: Heart normal in size. Normal vasculature. BONES: No acute findings. HARDWARE: Left chest tube. OTHER: No other significant finding. IMPRESSION: STABLE LEFT CHEST TUBE. DECREASE IN THE LEFT PLEURAL EFFUSION. NO PNEUMOTHORAX. TECHNICAL DOCUMENTATION: JOB ID: [id number] 2010 [employer]- All Rights Reserved Reading location - IP/workstation name: [email or web address]
[2020-06-16 11:17] LABS: INTERNATIONAL RATION (INR) 2.09; PROTHROMBIN TIME 23.5 SEC (11.4-15.4)
[2020-06-16] MEDS ORDERED: PHYTONADIONE 5 MG TABLET PO ONE (13:00)
--- NOTE | 2020-06-16 13:21 | PDOC PROGRESS REPORT ---
Subjective Progress Note for:: 06/16/20 Subjective:: Patient is resting in the chair. Chest tube in place. She reports that the breathing is comfortable at this moment. Reason For Visit: MALIGNANT PLEURAL EFFUSION Physical Exam Vital Signs: Temp Pulse Resp BP Pulse Ox 97.3 F 77 18 99/43 L 96 06/16/20 13:11 06/16/20 13:11 06/16/20 13:11 06/16/20 13:11 06/16/20 13:11 Intake & Output 06/15/20 06/16/20 06/17/20 06:59 06:59 06:59 Intake Total 1250 1000 Output Total 0 300 Balance 1250 700 Weight 90.1 kg General appearance: PRESENT: cooperative, mild distress, well-developed Head exam: PRESENT: atraumatic, normocephalic Eye exam: PRESENT: conjunctiva pale. ABSENT: scleral icterus Ear exam: PRESENT: normal external ear exam. ABSENT: bleeding, drainage Respiratory exam: PRESENT: decreased breath sounds - Left base. Clear to auscultation on the right., rales - On the left, symmetrical, unlabored. ABSENT: rhonchi, tachypnea, wheezes Cardiovascular exam: PRESENT: bradycardia, +S1, +S2. ABSENT: diastolic murmur, irregular rhythm, systolic murmur GI/Abdominal exam: PRESENT: normal bowel sounds, soft. ABSENT: tenderness Rectal exam: PRESENT: deferred Extremities exam: PRESENT: other - Unable to examine today. Neurological exam: PRESENT: alert, awake, oriented to person, oriented to place, oriented to time, oriented to situation, CN II-XII grossly intact. ABSENT: altered Psychiatric exam: PRESENT: flat affect. ABSENT: agitated, anxious Focused psych exam: ABSENT: delusional, paranoid, restlessness Skin exam: PRESENT: dry, normal color, warm Results Laboratory Results: 06/16/20 03:51 06/16/20 03:51 06/15/20 06/15/20 06/15/20 15:02 15:02 18:40 WBC 11.0 H RBC 3.71 L Hgb 9.7 L Hct 29.0 L MCV 78 L MCH 26.1 L MCHC 33.4 RDW 15.2 H Plt Count 356 Seg Neutrophils % 63.2 Retic Count (auto) Sodium 135.8 L Potassium 5.6 H Chloride 105 Carbon Dioxide 24 Anion Gap 7 BUN 39 H Creatinine 2.98 H Est GFR ( Amer) 19 L Glucose 111 H Calcium 8.2 L Iron TIBC Ferritin Total Bilirubin 0.5 AST 56 H Alkaline Phosphatase 66 Total Protein 6.5 Albumin 3.2 L Vitamin B12 Folate Urine Color YELLOW Urine Appearance SLIGHTLY-CLOUDY Urine pH 5.0 Ur Specific [place] 1.038 Urine Protein NEGATIVE Urine Glucose (UA) NEGATIVE Urine Ketones NEGATIVE Urine Blood SMALL H Urine Nitrite NEGATIVE Ur Leukocyte Esterase SMALL H Urine WBC (Auto) 22 Urine RBC (Auto) 2 Blood Type Antibody Screen 06/16/20 06/16/20 06/16/20 03:51 03:51 03:51 WBC 8.3 RBC 3.09 L Hgb 7.9 L Hct 24.1 L MCV 78 L MCH 25.7 L MCHC 33.0 RDW 15.2 H Plt Count 245 Seg Neutrophils % Retic Count (auto) 1.86 Sodium 137.5 Potassium 5.2 H Chloride 109 H Carbon Dioxide 24 Anion Gap 5 BUN 35 H Creatinine 2.43 H Est GFR ( Amer) 24 L Glucose 101 Calcium 7.4 L Iron TIBC Ferritin Total Bilirubin AST Alkaline Phosphatase Total Protein Albumin Vitamin B12 Folate Urine Color Urine Appearance Urine pH Ur Specific [place] Urine Protein Urine Glucose (UA) Urine Ketones Urine Blood Urine Nitrite Ur Leukocyte Esterase Urine WBC (Auto) Urine RBC (Auto) Blood Type Antibody Screen 06/16/20 06/16/20 03:51 10:39 WBC RBC Hgb Hct MCV MCH MCHC RDW Plt Count Seg Neutrophils % Retic Count (auto) Sodium Potassium Chloride Carbon Dioxide Anion Gap BUN Creatinine Est GFR ( Amer) Glucose Calcium Iron < 10.1 L TIBC 226 L Ferritin 234.00 Total Bilirubin AST Alkaline Phosphatase Total Protein Albumin Vitamin B12 > 1000.0 H Folate 14.50 Urine Color Urine Appearance Urine pH Ur Specific [place] Urine Protein Urine Glucose (UA) Urine Ketones Urine Blood Urine Nitrite Ur Leukocyte Esterase Urine WBC (Auto) Urine RBC (Auto) Blood Type A POSITIVE Antibody Screen NEGATIVE Impressions: Guidance Needle Placement CT 06/15/20 00:00 IMPRESSION: SUCCESSFUL PLACEMENT OF A 10 POL[place] LEFT SIDED CHEST TUBE USING CT GUIDANCE. Thoracentesis 06/15/20 14:50 IMPRESSION: SUCCESSFUL PLACEMENT OF A 10 POLISH LEFT SIDED CHEST TUBE USING CT GUIDANCE. Chest X-Ray 06/16/20 06:00 IMPRESSION: STABLE LEFT CHEST TUBE. DECREASE IN THE LEFT PLEURAL EFFUSION. NO PNEUMOTHORAX. Assessment and Plan - Diagnosis (1) Acute renal failure superimposed on stage 3 chronic kidney disease Qualifiers: Acute renal failure type: unspecified Qualified Code(s): N17.9 - Acute kidney failure, unspecified; N18.3 - Chronic kidney disease, stage 3 (moderate) Is this a current diagnosis for this admission?: Yes Plan: Patient has had poor intake. This most likely due to the new adenocarcinoma diagnosis. She has received IV fluids. We will continue to monitor her renal function and try to get her back to stage III which appears to be her baseline. We will continue to monitor intake and output as well. (2) Adenocarcinoma, lung Qualifiers: Laterality: left Qualified Code(s): C34.92 - Malignant neoplasm of unspecified part of left bronchus or lung Is this a current diagnosis for this admission?: Yes Plan: New diagnosis adenocarcinoma of the left lung. Unfortunately she has developed a malignant effusion with hemothorax. Currently has a chest tube in. She is scheduled for Pleurx catheter and Port-A-Cath placement however she was still anticoagulated. We will recheck studies tomorrow and this hopefully will be enough time to reverse the anticoagulation and proceed with the procedures. (3) Malignant pleural effusion Is this a current diagnosis for this admission?: Yes Plan: Secondary to new diagnosis of adenocarcinoma of the lung for Pleurx catheter insertion (4) Hemothorax, left Is this a current diagnosis for this admission?: Yes Plan: Secondary to the new diagnosis of adenocarcinoma while on chronic anticoagulation for her atrial fibrillation. Anticoagulants are being held. Chest tube is in place. Planned for Pleurx catheter tomorrow. (5) Atrial fibrillation Qualifiers: Atrial fibrillation type: longstanding persistent Qualified Code(s): I48.11 - Longstanding persistent atrial fibrillation Is this a current diagnosis for this admission?: Yes Plan: Continue her previous cardiac medications and monitor on telemetry. Currently with good rate control. (6) Chronic anticoagulation Is this a current diagnosis for this admission?: Yes Plan: Currently being held for anticipated surgical procedures. Consider resuming postoperatively. Need to monitor and if continued hemothorax will need to hold anticoagulation. (7) Hyperkalemia Is this a current diagnosis for this admission?: Yes Plan: Started on [place]. Continue to monitor potassium levels. (8) Hypertension Qualifiers: Hypertension type: essential hypertension Qualified Code(s): I10 - Essential (primary) hypertension Is this a current diagnosis for this admission?: Yes Plan: Blood pressures have been on the low side. We will place parameters on antihypertensive medications. - Time Time Spent with patient: 15-24 minutes Medications reviewed and adjusted accordingly: Yes Anticipated Discharge Disposition: Home, Self Care Anticipated Discharge Timeframe: within 72 hours
[2020-06-16] MEDS ORDERED: DEXTROSE 40% GEL 15 GM TUBE PO PRN ×2 (14:03)
[2020-06-16] MEDS ORDERED: DEXTROSE 50%-WATER 25 GM/50 ML DISP.SYRIN IV PRN ×2 (14:03)
[2020-06-16] MEDS ORDERED: GLUCAGON,HUMAN RECOMB 1 MG INJ SUBCUT PRN (14:03)
--- NOTE | 2020-06-16 16:57 | PDOC CONSULTATION ---
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 She has history of atrial fibrillation on Eliquis which was stopped on 06/14/2020. A left chest tube was placed by IR on admission on 06/15/2020 and so far has drained about 2 L of serosanguineous fluid. Her hemoglobin was 9 on admission and this morning it was 7.9. A follow-up PT/INR showed INR about 2.09 this morning. Therefore the procedures for Pleurx catheter placement and Chemo-Port were held today and possibly rescheduled for tomorrow. Past Medical History Cardiac Medical History: Reports: Atrial Fibrillation, Coronary Artery Disease - HIGH CHOLESTEROL, Hyperlipidema, Hypertension Denies: Myocardial Infarction Pulmonary Medical History: Denies: Asthma, Bronchitis, Chronic Obstructive Pulmonary Disease (COPD), Pneumonia EENT Medical History: Reports: None Neurological Medical History: Denies: Seizures Endocrine Medical History: Reports: Obesity Denies: Diabetes Mellitus Type 2, Hypothyroidism Renal/ Medical History: Reports: Chronic Kidney Disease Malignancy Medical History: Reports: Lung Cancer GI Medical History: Reports: Gastroesophageal Reflux Disease Musculoskeltal Medical History: Denies: Arthritis Skin Medical History: Reports: None Psychiatric Medical History: Reports: Depression Traumatic Medical History: Reports: None Hematology: Denies: Anemia Infectious Medical History: Reports: None Past Surgical History Past Surgical History: Reports: None, Other - Thoracentesis Social History Lives with: Family Smoking Status: Never Smoker Electronic Cigarette use?: No Frequency of Alcohol Use: None Hx Recreational Drug Use: No Drugs: None Hx Prescription Drug Abuse: No - Advance Directive Resuscitation Status: Full Code Family History Family History: Reviewed & Not Pertinent Parental Family History Reviewed: Yes Children Family History Reviewed: No Sibling(s) Family History Reviewed.: No Medication/Allergy Home Medications: Rosuvastatin Calcium [Crestor 20 mg Tablet] 20 mg PO DAILY #90 tablet 03/17/14 Apixaban [Eliquis] 5 mg PO BID 06/15/20 Dronedarone Hydrochloride [Multaq 400 Mg Tablet] 400 mg PO BID 06/15/20 Folic Acid [Folvite 1 mg Tablet] 1 mg PO DAILY 06/15/20 Lisinopril [Prinivil] 20 mg PO DAILY 06/15/20 Magnesium Oxide [Magnesium] 400 mg PO DAILY 06/15/20 Metoprolol Tartrate [Lopressor] 75 mg PO DAILY 06/15/20 Allergies/Adverse Reactions: No Known Allergies Allergy (Verified 06/01/20 07:54) Review of Systems Constitutional: PRESENT: weakness Cardiovascular: PRESENT: chest pain Psychiatric: PRESENT: anxiety Physical Exam Vital Signs: Temp Pulse Resp BP Pulse Ox 98.5 F 79 18 90/70 L 94 06/16/20 15:10 06/16/20 15:10 06/16/20 15:10 06/16/20 15:10 06/16/20 15:10 Intake & Output 06/15/20 06/16/20 06/17/20 06:59 06:59 06:59 Intake Total 1250 1395 Output Total 0 300 Balance 1250 1095 Weight 90.1 kg General appearance: PRESENT: cooperative, mild distress Neck exam: PRESENT: full ROM Respiratory exam: PRESENT: other - Chest tube drainage a total of 2 L of serosanguineous fluid Cardiovascular exam: PRESENT: irregular rhythm GI/Abdominal exam: PRESENT: soft Rectal exam: PRESENT: deferred Neurological exam: PRESENT: alert, oriented to person, oriented to place, oriented to time, oriented to situation Psychiatric exam: PRESENT: anxious Skin exam: PRESENT: normal color, warm Results Laboratory Results: 06/16/20 03:51 06/16/20 03:51 06/15/20 06/16/20 06/16/20 18:40 03:51 03:51 WBC 8.3 RBC 3.09 L Hgb 7.9 L Hct 24.1 L MCV 78 L MCH 25.7 L MCHC 33.0 RDW 15.2 H Plt Count 245 Retic Count (auto) Sodium 137.5 Potassium 5.2 H Chloride 109 H Carbon Dioxide 24 Anion Gap 5 BUN 35 H Creatinine 2.43 H Est GFR ( Amer) 24 L Glucose 101 Calcium 7.4 L Iron TIBC Ferritin Vitamin B12 Folate Urine Color YELLOW Urine Appearance SLIGHTLY-CLOUDY Urine pH 5.0 Ur Specific [place] 1.038 Urine Protein NEGATIVE Urine Glucose (UA) NEGATIVE Urine Ketones NEGATIVE Urine Blood SMALL H Urine Nitrite NEGATIVE Ur Leukocyte Esterase SMALL H Urine WBC (Auto) 22 Urine RBC (Auto) 2 Blood Type Antibody Screen 06/16/20 06/16/20 06/16/20 03:51 03:51 10:39 WBC RBC Hgb Hct MCV MCH MCHC RDW Plt Count Retic Count (auto) 1.86 Sodium Potassium Chloride Carbon Dioxide Anion Gap BUN Creatinine Est GFR ( Amer) Glucose Calcium Iron < 10.1 L TIBC 226 L Ferritin 234.00 Vitamin B12 > 1000.0 H Folate 14.50 Urine Color Urine Appearance Urine pH Ur Specific [place] Urine Protein Urine Glucose (UA) Urine Ketones Urine Blood Urine Nitrite Ur Leukocyte Esterase Urine WBC (Auto) Urine RBC (Auto) Blood Type A POSITIVE Antibody Screen NEGATIVE Impressions: Guidance Needle Placement CT 06/15/20 00:00 IMPRESSION: SUCCESSFUL PLACEMENT OF A 10 [place] LEFT SIDED CHEST TUBE USING CT GUIDANCE. Thoracentesis 06/15/20 14:50 IMPRESSION: SUCCESSFUL PLACEMENT OF A 10 [place] LEFT SIDED CHEST TUBE USING CT GUIDANCE. Chest X-Ray 06/16/20 06:00 IMPRESSION: STABLE LEFT CHEST TUBE. DECREASE IN THE LEFT PLEURAL EFFUSION. NO PNEUMOTHORAX. Assessment & Plan - Diagnosis (1) DESTINY (acute kidney injury) Is this a current diagnosis for this admission?: Yes (2) Anemia Qualifiers: Anemia type: iron deficiency Iron deficiency anemia type: chronic blood loss Qualified Code(s): D50.0 - Iron deficiency anemia secondary to blood loss (chronic) Is this a current diagnosis for this admission?: Yes (3) Atrial fibrillation Qualifiers: Atrial fibrillation type: longstanding persistent Qualified Code(s): I48.11 - Longstanding persistent atrial fibrillation Is this a current diagnosis for this admission?: Yes (4) Cancer of left lung Qualifiers: Lung location: hilum of lung Qualified Code(s): C34.02 - Malignant neoplasm of left main bronchus Is this a current diagnosis for this admission?: Yes (5) Hemothorax, left Is this a current diagnosis for this admission?: Yes (6) Malignant pleural effusion Is this a current diagnosis for this admission?: Yes - Time Time Spent: 30 to 50 Minutes Anticipated discharge: Home with Homehealth Anticipated DC Timeframe: within 72 hours - Inpatient Certification Medical Necessity: Need for Surgery - Plan Summary Plan Summary: 74-year-old female with history of atrial fibrillation on Eliquis with the last dose 06/14/20 pm, and diagnosed last week by Dr Goodrich with left lung Ca with mediastinal lymph node and malignant left pleural effusion. A left chest tube was placed by IR yesterday and so far has drained 2 L of serosanguinous fluid. Surgery is consulted to place a left Pleurx Catheter and Chemoport. Her INR this am is 2.09. Will repeat IR in am and if <1.5 then above procedures will be done. Tried to give Vit K but may not work since patient not on coumadin. We may give FFP tomorrow prior to procedures if INR still elevated.
[2020-06-16 17:12] LABS: ABSOLUTE BASOPHILS # (AUTO) 0.1 10^3/uL (0.0-0.2); ABSOLUTE EOSINOPHILS # (AUTO) 0.2 10^3/uL (0.0-0.6); ABSOLUTE LYMPHOCYTES (AUTO) 1.7 10^3/uL (0.5-4.7); ABSOLUTE MONOCYTES (AUTO) 0.8 10^3/uL (0.1-1.4); ABSOLUTE NEUT (AUTO) 6.4 10^3/uL (1.7-8.2); BASOPHILS % (AUTO) 0.9 % (0-2); EOSINOPHILS % (AUTO) 2.2 % (0-6); HEMATOCRIT 24.7 % (36.0-47.0); HEMOGLOBIN 8.2 g/dL (12.0-15.5); LYMPHOCYTES % (AUTO) 18.4 % (13-45); MEAN CORPUSCULAR HEMOGLOBIN 26.9 pg (27.0-33.4); MEAN CORPUSCULAR HGB CONC 33.3 g/dL (32.0-36.0); MEAN CORPUSCULAR VOLUME 81 fl (80-97); MONOCYTES % (AUTO) 8.4 % (3-13); PLATELET COUNT 230 10^3/uL (150-450); RED BLOOD COUNT 3.07 10^6/uL (3.72-5.28); RED CELL DISTRIBUTION WIDTH 16.3 % (11.5-14.0); SEGMENTED NEUTROPHILS % (AUTO) 70.1 % (42-78); TOTAL CELLS COUNTED % (AUTO) 100 %; WHITE BLOOD COUNT 9.2 10^3/uL (4.0-10.5)
[2020-06-16] MEDS: DRONEDARONE HYDROCHLORIDE 400 MG TABLET PO SCH (17:14)
[2020-06-16] MEDS: PATIROMER 8.4 GM SUSP PACKET PO SCH (17:14)
[2020-06-16] MEDS: ATORVASTATIN CALCIUM 20 MG TABLET PO SCH (21:20)
[2020-06-17] MEDS: ALBUTEROL SULFATE 0.083% NEB 2.5 MG/3 ML AMPUL NEB SCH ×4 (02:45→20:00)
[2020-06-17] MEDS: NORMAL SALINE 1000 ML 1,000 ML IV PRN ×2 (04:01→11:37)
[2020-06-17 04:21] LABS: INTERNATIONAL RATION (INR) 1.54; PROTHROMBIN TIME 18.6 SEC (11.4-15.4)
[2020-06-17] MEDS: DRONEDARONE HYDROCHLORIDE 400 MG TABLET PO SCH ×2 (05:09→20:03)
[2020-06-17] MEDS: ACETAMINOPHEN 325 MG TABLET PO PRN ×2 (08:18→21:57)
--- NOTE | 2020-06-17 08:21 | PDOC PROGRESS REPORT ---
Subjective Progress Note for:: 06/17/20 Subjective:: Patient is feeling better this morning. Ate well yesterday. N.p.o. after midnight. INR is 1.5 today. Discussed case with Dr. Dixon, he suggests pleurodesis as opposed to Pleurx catheter along with port placement today. We had a long discussion about that and I had a discussion with patient and family about the plan change and the reasoning behind it. Family as well as patient agreed with plan. In total we spent about 45 minutes in discussion. Reason For Visit: MALIGNANT EFFUSION,METASTATIC MALIGNANCY,REQUIRES Physical Exam Vital Signs: Temp Pulse Resp BP Pulse Ox 98.0 F 70 14 108/53 L 99 06/17/20 01:12 06/17/20 07:59 06/17/20 07:59 06/17/20 01:12 06/17/20 07:59 Intake & Output 06/16/20 06/17/20 06/18/20 06:59 06:59 06:59 Intake Total 1250 3653 Output Total 0 1880 Balance 1250 1773 Weight 90.1 kg 91.4 kg General appearance: PRESENT: no acute distress, well-developed, well-nourished Head exam: PRESENT: atraumatic, normocephalic Eye exam: PRESENT: conjunctiva pink, EOMI, PERRLA. ABSENT: scleral icterus Ear exam: PRESENT: normal external ear exam Mouth exam: PRESENT: moist, tongue midline Neck exam: ABSENT: carotid bruit, JVD, lymphadenopathy, thyromegaly Respiratory exam: PRESENT: clear to auscultation gwendolyn. ABSENT: rales, rhonchi, wheezes Cardiovascular exam: PRESENT: RRR. ABSENT: diastolic murmur, rubs, systolic murmur Pulses: PRESENT: normal dorsalis pedis pul Vascular exam: PRESENT: normal capillary refill GI/Abdominal exam: PRESENT: normal bowel sounds, soft. ABSENT: distended, guarding, mass, organolmegaly, rebound, tenderness Rectal exam: PRESENT: deferred Extremities exam: PRESENT: full ROM. ABSENT: calf tenderness, clubbing, pedal edema Neurological exam: PRESENT: alert, awake, oriented to person, oriented to place, oriented to time, oriented to situation, CN II-XII grossly intact. ABSENT: motor sensory deficit Psychiatric exam: PRESENT: appropriate affect, normal mood. ABSENT: homicidal ideation, suicidal ideation Skin exam: PRESENT: dry, intact, warm. ABSENT: cyanosis, rash Results Laboratory Results: 06/16/20 16:56 06/16/20 03:51 06/16/20 06/16/20 06/16/20 03:51 03:51 10:39 WBC RBC Hgb Hct MCV MCH MCHC RDW Plt Count Seg Neutrophils % Retic Count (auto) 1.86 Iron < 10.1 L TIBC 226 L Ferritin 234.00 Vitamin B12 > 1000.0 H Folate 14.50 Blood Type A POSITIVE Antibody Screen NEGATIVE 06/16/20 16:56 WBC 9.2 RBC 3.07 L Hgb 8.2 L Hct 24.7 L MCV 81 MCH 26.9 L MCHC 33.3 RDW 16.3 H Plt Count 230 Seg Neutrophils % 70.1 Retic Count (auto) Iron TIBC Ferritin Vitamin B12 Folate Blood Type Antibody Screen Impressions: Guidance Needle Placement CT 06/15/20 00:00 IMPRESSION: SUCCESSFUL PLACEMENT OF A 10 [place] LEFT SIDED CHEST TUBE USING CT GUIDANCE. Thoracentesis 06/15/20 14:50 IMPRESSION: SUCCESSFUL PLACEMENT OF A 10 [place] LEFT SIDED CHEST TUBE USING CT GUIDANCE. Chest X-Ray 06/16/20 06:00 IMPRESSION: STABLE LEFT CHEST TUBE. DECREASE IN THE LEFT PLEURAL EFFUSION. NO PNEUMOTHORAX. Assessment & Plan - Diagnosis (1) Malignant pleural effusion Is this a current diagnosis for this admission?: Yes Plan: Plan for talc pleurodesis today. (2) Cancer of left lung Qualifiers: Lung location: hilum of lung Qualified Code(s): C34.02 - Malignant neoplasm of left main bronchus Is this a current diagnosis for this admission?: Yes Plan: Hopeful port placement today, we would like to try initiate chemotherapy soon (3) DESTINY (acute kidney injury) Is this a current diagnosis for this admission?: Yes Plan: Slowly improving (4) Atrial fibrillation Qualifiers: Atrial fibrillation type: longstanding persistent Qualified Code(s): I48.11 - Longstanding persistent atrial fibrillation Is this a current diagnosis for this admission?: Yes Plan: Holding anticoagulation, INR is down to 1.5 today. (5) Anemia Qualifiers: Anemia type: iron deficiency Iron deficiency anemia type: chronic blood loss Qualified Code(s): D50.0 - Iron deficiency anemia secondary to blood loss (chronic) Is this a current diagnosis for this admission?: Yes Plan: Hemoglobin 8.2, iron studies normal, if hemoglobin gets under 8 we will consider transfusion - Time Time Spent with patient: 35 or more minutes - Inpatient Certification Based on my medical assessment, after consideration of the patient's comorbidities, presenting symptoms, or acuity I expect that the services needed warrant INPATIENT care.: Yes I certify that my determination is in accordance with my understanding of Medicare's requirements for reasonable and necessary INPATIENT services [42 CFR 412.3e].: Yes Medical Necessity: Risk of Complication if Not Cared For in Hospital
[2020-06-17 09:03] LABS: HEMATOCRIT 21.8 % (36.0-47.0); MEAN CORPUSCULAR HEMOGLOBIN 26.9 pg (27.0-33.4); MEAN CORPUSCULAR HGB CONC 34.1 g/dL (32.0-36.0); MEAN CORPUSCULAR VOLUME 79 fl (80-97); PLATELET COUNT 204 10^3/uL (150-450); RED BLOOD COUNT 2.76 10^6/uL (3.72-5.28); RED CELL DISTRIBUTION WIDTH 16.3 % (11.5-14.0)
[2020-06-17 09:04] LABS: HEMOGLOBIN 7.4 g/dL (12.0-15.5)
[2020-06-17 09:30] LABS: ALBUMIN 1.9 g/dL (3.5-5.0); BLOOD UREA NITROGEN 25 mg/dL (7-20); CARBON DIOXIDE 21 mmol/L (22-30); GLUCOSE 113 mg/dL (75-110); PHOSPHORUS 4.1 mg/dL (2.5-4.5); POTASSIUM 4.6 mmol/L (3.6-5.0)
[2020-06-17] MEDS ORDERED: NORMAL SALINE 100 ML IV PRN (09:30)
[2020-06-17 09:35] LABS: CHLORIDE 112 mmol/L (98-107)
[2020-06-17 09:43] LABS: ANION GAP 3 (5-19)
[2020-06-17] MEDS ORDERED: (PENDING PHARMACY ID) (Magnesium Oxide [Magnesium] 400 MG) PO SCH (10:00)
[2020-06-17] MEDS ORDERED: TALC 4 GM IPL PRN (10:00)
[2020-06-17] MEDS ORDERED: (PENDING PHARMACY ID) (Lisinopril [Prinivil] 20 MG) PO SCH (10:00)
[2020-06-17] MEDS ORDERED: TALC IPL PRN (10:00)
--- NOTE | 2020-06-17 11:21 | PDOC PROGRESS REPORT ---
Subjective Progress Note for:: 06/17/20 Subjective:: Patient is resting comfortably. She reports that her breathing is better. She does not have any pain at the left side chest tube insertion site. She is scheduled for procedure later today. Reason For Visit: MALIGNANT EFFUSION,METASTATIC MALIGNANCY,REQUIRES Physical Exam Vital Signs: Temp Pulse Resp BP Pulse Ox 97.4 F 75 18 127/55 H 98 06/17/20 08:00 06/17/20 08:00 06/17/20 08:00 06/17/20 08:00 06/17/20 08:00 Intake & Output 06/16/20 06/17/20 06/18/20 06:59 06:59 06:59 Intake Total 1250 3653 Output Total 0 1880 Balance 1250 1773 Weight 90.1 kg 91.4 kg General appearance: PRESENT: no acute distress, cooperative, well-developed Head exam: PRESENT: atraumatic, normocephalic Eye exam: PRESENT: conjunctiva pale. ABSENT: scleral icterus Ear exam: PRESENT: normal external ear exam. ABSENT: bleeding, drainage Mouth exam: PRESENT: moist, tongue midline Neck exam: ABSENT: carotid bruit, JVD, lymphadenopathy, tracheostomy Respiratory exam: PRESENT: clear to auscultation gwendolyn - Right side, decreased breath sounds - Left side, rales, symmetrical, unlabored, other - Decreased inspiratory phase.. ABSENT: rhonchi, tachypnea, wheezes Cardiovascular exam: PRESENT: RRR, +S1, +S2. ABSENT: bradycardia, diastolic murmur, irregular rhythm, systolic murmur, tachycardia GI/Abdominal exam: PRESENT: normal bowel sounds, soft. ABSENT: distended, guarding, tenderness Rectal exam: PRESENT: deferred Gentrourinary exam: PRESENT: indwelling catheter Extremities exam: ABSENT: pedal edema Musculoskeletal exam: PRESENT: normal inspection. ABSENT: deformity, dislocation Neurological exam: PRESENT: alert, awake, oriented to person, oriented to place, oriented to situation, CN II-XII grossly intact Psychiatric exam: PRESENT: appropriate affect. ABSENT: agitated, anxious Focused psych exam: ABSENT: delusional, paranoid, restlessness Skin exam: PRESENT: dry, normal color, warm Results Laboratory Results: 06/17/20 03:31 06/17/20 03:31 06/16/20 06/16/20 06/17/20 10:39 16:56 03:31 WBC 9.2 8.0 RBC 3.07 L 2.76 L Hgb 8.2 L 7.4 L Hct 24.7 L 21.8 L MCV 81 79 L MCH 26.9 L 26.9 L MCHC 33.3 34.1 RDW 16.3 H 16.3 H Plt Count 230 204 Seg Neutrophils % 70.1 Sodium Potassium Chloride Carbon Dioxide Anion Gap BUN Creatinine Est GFR ( Amer) Glucose Calcium Phosphorus Magnesium Albumin Blood Type A POSITIVE Antibody Screen NEGATIVE 06/17/20 03:31 WBC RBC Hgb Hct MCV MCH MCHC RDW Plt Count Seg Neutrophils % Sodium 136.4 L Potassium 4.6 Chloride 112 H Carbon Dioxide 21 L Anion Gap 3 L BUN 25 H Creatinine 1.87 H Est GFR ( Amer) 32 L Glucose 113 H Calcium 7.0 L* Phosphorus 4.1 Magnesium 2.7 H Albumin 1.9 L Blood Type Antibody Screen Impressions: Guidance Needle Placement CT 06/15/20 00:00 IMPRESSION: SUCCESSFUL PLACEMENT OF A 10 [place] LEFT SIDED CHEST TUBE USING CT GUIDANCE. Thoracentesis 06/15/20 14:50 IMPRESSION: SUCCESSFUL PLACEMENT OF A 10 [place] LEFT SIDED CHEST TUBE USING CT GUIDANCE. Chest X-Ray 06/16/20 06:00 IMPRESSION: STABLE LEFT CHEST TUBE. DECREASE IN THE LEFT PLEURAL EFFUSION. NO PNEUMOTHORAX. Assessment and Plan - Diagnosis (1) Acute renal failure superimposed on stage 3 chronic kidney disease Qualifiers: Acute renal failure type: unspecified Qualified Code(s): N17.9 - Acute kidney failure, unspecified; N18.3 - Chronic kidney disease, stage 3 (moderate) Is this a current diagnosis for this admission?: Yes Plan: Renal function is slowly improving. We will continue to monitor. Judicious use of IV fluids. Still running a net positive fluid balance. We will need to monitor intake and output closely. (2) Adenocarcinoma, lung Qualifiers: Laterality: left Qualified Code(s): C34.92 - Malignant neoplasm of unspecified part of left bronchus or lung Is this a current diagnosis for this admission?: Yes Plan: Discussed with surgery. They are going to replace the chest tube to a larger bore. They are also going to perform pleurodesis. While in the OR they are going to place a Port-A-Cath as well. Management of malignancy by Dr. Horton. (3) Malignant pleural effusion Is this a current diagnosis for this admission?: Yes Plan: Treatment plan as above (4) Hemothorax, left Is this a current diagnosis for this admission?: Yes Plan: Unfortunately due to the blood loss her hemoglobin is down to 7.4. We will transfuse 1 unit of packed red blood cells as discussed with Dr. Horton. Monitor hemoglobin. (5) Atrial fibrillation Qualifiers: Atrial fibrillation type: longstanding persistent Qualified Code(s): I48.11 - Longstanding persistent atrial fibrillation Is this a current diagnosis for this admission?: Yes Plan: 12-lead EKG not obtained. Based on telemetry leads it appears that she might be in sinus rhythm. It is difficult to tell. Her rate is well controlled. Continue dronedarone and metoprolol. (6) Chronic anticoagulation Is this a current diagnosis for this admission?: Yes Plan: With her malignancy and recent hemothorax anticoagulation is probably more risk than benefit at this time. We will hold it temporarily. Once her Port-A-Cath is in place and the malignant effusion is addressed then we will consider resuming anticoagulation. She will likely need to be off it for a week or so before considering resuming the medication. (7) Hyperkalemia Is this a current diagnosis for this admission?: Yes Plan: Potassium is back in the normal range. Continue to monitor electrolytes. (8) Hypertension Qualifiers: Hypertension type: essential hypertension Qualified Code(s): I10 - Essential (primary) hypertension Is this a current diagnosis for this admission?: Yes Plan: Blood pressure is reasonably controlled at this time. Continue current medication regimen and monitor vital signs. (9) Hypocalcemia Is this a current diagnosis for this admission?: Yes Plan: Serum calcium 7.0. Albumin is quite low in the calcium corrects to the normal range when accounting for her low albumin. If there is ongoing concern we can check an ionized calcium level. - Time Time Spent with patient: 15-24 minutes Medications reviewed and adjusted accordingly: Yes Anticipated Discharge Disposition: Home with Home Health Anticipated Discharge Timeframe: within 72 hours
[2020-06-17] MEDS: METOPROLOL TARTRATE 50 MG TABLET PO SCH (11:36)
--- NOTE | 2020-06-17 13:14 | PDOC PROGRESS REPORT ---
Subjective Progress Note for:: 06/17/20 Subjective:: 74-year-old female with a large left-sided malignant pleural effusion. The patient had a percutaneous catheter placed 2 days ago. Her work of breathing has improved significantly. She continues to produce large amounts of pleural fluid from her left chest. Surgery has been consulted to help manage her pleural fluid output. At present, the patient denies significant chest pain, shortness of breath, fevers, chills, nausea, vomiting, dizziness, orthostasis. Reason For Visit: MALIGNANT EFFUSION,METASTATIC MALIGNANCY,REQUIRES Physical Exam Vital Signs: Temp Pulse Resp BP Pulse Ox 98.1 F 82 18 110/57 L 100 06/17/20 12:00 06/17/20 12:00 06/17/20 12:00 06/17/20 12:00 06/17/20 12:00 Intake & Output 06/16/20 06/17/20 06/18/20 06:59 06:59 06:59 Intake Total 1250 3653 1000 Output Total 0 1880 Balance 1250 1773 1000 Weight 90.1 kg 91.4 kg General appearance: PRESENT: no acute distress, cooperative Head exam: PRESENT: atraumatic, normocephalic Eye exam: PRESENT: EOMI, PERRLA. ABSENT: scleral icterus Mouth exam: PRESENT: moist Neck exam: ABSENT: meningismus, tenderness, thyromegaly Respiratory exam: PRESENT: unlabored, other - CT guided pigtail catheter in the left chest. It is productive of large amounts of serosanguineous fluid. Cardiovascular exam: ABSENT: tachycardia GI/Abdominal exam: PRESENT: soft. ABSENT: distended, firm, guarding, tenderness Rectal exam: PRESENT: deferred Extremities exam: ABSENT: clubbing Musculoskeletal exam: ABSENT: deformity Neurological exam: PRESENT: alert, awake, oriented to person, oriented to place, oriented to time, oriented to situation Psychiatric exam: ABSENT: agitated, anxious, depressed Focused psych exam: ABSENT: delusional Skin exam: ABSENT: cyanosis, erythema, jaundice Results Laboratory Results: 06/17/20 03:31 06/17/20 03:31 06/16/20 06/17/20 06/17/20 16:56 03:31 03:31 WBC 9.2 8.0 RBC 3.07 L 2.76 L Hgb 8.2 L 7.4 L Hct 24.7 L 21.8 L MCV 81 79 L MCH 26.9 L 26.9 L MCHC 33.3 34.1 RDW 16.3 H 16.3 H Plt Count 230 204 Seg Neutrophils % 70.1 Sodium 136.4 L Potassium 4.6 Chloride 112 H Carbon Dioxide 21 L Anion Gap 3 L BUN 25 H Creatinine 1.87 H Est GFR ( Amer) 32 L Glucose 113 H Calcium 7.0 L* Phosphorus 4.1 Magnesium 2.7 H Albumin 1.9 L Impressions: Guidance Needle Placement CT 06/15/20 00:00 IMPRESSION: SUCCESSFUL PLACEMENT OF A 10 [place] LEFT SIDED CHEST TUBE USING CT GUIDANCE. Thoracentesis 06/15/20 14:50 IMPRESSION: SUCCESSFUL PLACEMENT OF A 10 [place] LEFT SIDED CHEST TUBE USING CT GUIDANCE. Chest X-Ray 06/16/20 06:00 IMPRESSION: STABLE LEFT CHEST TUBE. DECREASE IN THE LEFT PLEURAL EFFUSION. NO PNEUMOTHORAX. Assessment & Plan - Diagnosis (1) Malignant pleural effusion Is this a current diagnosis for this admission?: Yes - Time Anticipated Discharge Disposition: Unknown Anticipated Discharge Timeframe: unknown - Plan Summary Plan Summary: This is a 74-year-old female with a malignant pleural effusion. The patient has a pigtail catheter in place. It was placed 06/15/2020. Surgery has been consulted to manage her malignant pleural effusion. At this time, there is no fluid within the chest, because the catheter is draining a large amount. Technically speaking, a Pleurx catheter would be difficult to place in this situation. I have discussed Pleurx catheter as well as chemical pleurodesis with the patient and her family. They have agreed to place small bore anterior chest tube with instillation of talc as a pleurodesis agent. This will hopefully afford her freedom from a Pleurx catheter in the future. If her hydrothorax recurs, a Pleurx catheter can always be placed in the near future. I have discussed this at length with the patient and her children. Risk/benefits discussed, informed consent obtained, and all questions answered.
[2020-06-17] MEDS: DOCUSATE SODIUM 100 MG CAPSULE PO SCH (13:44)
[2020-06-17] MEDS: MAGNESIUM OXIDE 400 MG TABLET PO SCH (13:44)
[2020-06-17] MEDS: FOLIC ACID 1 MG TABLET PO SCH (13:44)
[2020-06-17] MEDS: FAMOTIDINE 20 MG TABLET PO SCH ×2 (13:45→21:54)
[2020-06-17] MEDS: LISINOPRIL 10 MG TABLET PO SCH (13:45)
[2020-06-17] MEDS ORDERED: NORMAL SALINE 250 ML IV PRN ×2 (14:58)
[2020-06-17] MEDS ORDERED: LIDOCAINE 1% INJ-PF (10 MG/ML) 30 ML SDV ONE (16:20)
[2020-06-17] MEDS ORDERED: BUPIVACAINE HCL 0.25 % INJ/PF (2.5 MG/1 ML) 30 ML VIAL ONE (16:20)
[2020-06-17] MEDS ORDERED: PROPOFOL INJ 200 MG/20 ML VIAL IV ONE (16:30)
[2020-06-17] MEDS ORDERED: MIDAZOLAM 2 MG/2 ML INJ ONE (16:30)
[2020-06-17] MEDS ORDERED: ONDANSETRON HCL INJ/PF 4 MG/2 ML SDV ONE (16:30)
[2020-06-17] MEDS ORDERED: FENTANYL CITRATE INJ/PF 100 MCG/2 ML AMPUL ONE (16:30)
[2020-06-17] MEDS ORDERED: CEFAZOLIN INJ 1 GM VIAL ONE (17:08)
[2020-06-17] MEDS ORDERED: FENTANYL CITRATE INJ/PF 100 MCG/2 ML AMPUL IV PRN ×3 (17:34)
[2020-06-17] MEDS ORDERED: DIPHENHYDRAMINE HCL 50 MG/ML VIAL IV PRN (17:34)
[2020-06-17] MEDS ORDERED: MEPERIDINE HCL/PF INJ 25 MG/1 ML DISP.SYRIN IV PRN (17:34)
[2020-06-17] MEDS: ATORVASTATIN CALCIUM 20 MG TABLET PO SCH (21:54)
--- NOTE | 2020-06-17 21:58 | Operative Report ---
Nonrecallable Operative Report DATE OF SURGERY: 06/17/20 PREOPERATIVE DIAGNOSIS: 1. Malignant pleural effusion, left. 2. Metastatic carcinoma. POSTOPERATIVE DIAGNOSIS: Same as above OPERATION: 1. Insertion of left superior 28 [place] tube thoracostomy. 2. Chemical pleurodesis of the left chest with talc. 3. Ultrasound-guided central venous puncture. 4. Left internal jugular vein Mediport placement. SURGEON: YUSUF REA ANESTHESIA: LMAC TISSUE REMOVED OR ALTERED: None COMPLICATIONS: None apparent ESTIMATED BLOOD LOSS: Minimal PROCEDURE: Drains/implants: 1. 28 [place] chest tube to the left chest. 2. Left internal jugular vein Mediport. Procedure in detail: After informed consent was obtained from the patient, she was laid in the supine position in the operating room. The area of the left chest was prepped and draped in a normal sterile fashion. 1% lidocaine was used to infiltrate the skin of the left lateral chest wall. An incision was created in the anterior axillary line, at the level of the nipple. Dissection was carried through the subcutaneous tissues using blunt dissection. The chest was then entered bluntly with a Yanira clamp. The Yanira clamp was spread. A large rosado of fluid was encountered. A finger sweep was performed. A 28 [place] chest tube was inserted into the chest, and directed posterior and superior. The tube was then sutured to the chest using 0 silk suture. A dressing was placed, and attention was turned to the chemical pleurodesis. 50 cc of sterile saline, mixed with 4 g of talc was instilled into the chest tube. This was washed with another 50 cc of sterile saline, for a total volume of 100 cc. The chest tube was then clamped, and the talc slurry was left within the chest cavity. Attention was then turned to insertion of the Mediport. The chest and neck were prepped and draped in a normal sterile fashion. The ultrasound was used to iden tify the left internal jugular vein. It was compressible with normal flow. Under direct ultrasonic guidance, the vein was cannulated with the supplied access needle. Dark venous, nonpulsatile blood was returned in the syringe. The wire was inserted into the vein easily. The wire was confirmed to be within the lumen of the vein using the ultrasound device as well as fluoroscopy. Picture documentation was then saved, printed, and placed on the chart. An incision was created over the left chest wall to accommodate the Mediport hub. The catheter was then tunneled from the Mediport hub site, to the needle insertion site. The dilator and breakaway sheath were then inserted over the wire, under direct fluoroscopic guidance. The wire and dilator were removed, leaving the breakaway sheath within the SVC. The catheter was inserted into the breakaway sheath. It was cracked and pulled away, leaving the catheter within the SVC. Once this was completed, the catheter was pulled back to an appropriate level. It was trimmed to length, and the Mediport hub was attached. The hub was buried in the pocket. The hub was sutured to the chest wall using 3-0 Vicryl suture. The subcutaneous tissues were then closed using 3-0 Vicryl suture. The overlying skin was closed using 4-0 Vicryl Rapide suture in subcuticular fashion. The Mediport hub was then accessed and flushed with a Monahan needle. It flushed easily. Dressings were then placed, and the procedure was concluded. All sponge, instrument, and needle counts were correct x2. Condition: Fair.
[2020-06-18] MEDS: PATIROMER 8.4 GM SUSP PACKET PO SCH ×2 (01:43→17:50)
[2020-06-18] MEDS: ACETAMINOPHEN 325 MG TABLET PO PRN (02:03)
[2020-06-18] MEDS: ALBUTEROL SULFATE 0.083% NEB 2.5 MG/3 ML AMPUL NEB SCH ×4 (02:21→20:20)
[2020-06-18] MEDS: MORPHINE SULFATE 10 MG/ML INJ IV PRN ×4 (03:28→18:01)
--- NOTE | 2020-06-18 03:46 | RADIOLOGY REPORT (SQ) ---
CLINICAL HISTORY: PORT PLACEMENT COMPARISON: None. TECHNIQUE: XR CHEST 1 VIEW 06/17/2020 12:00 AM CDT IMPRESSION: Two spot fluoroscopic images show placement of left chest port with catheter tip in the distal left brachiocephalic vein.
[2020-06-18] MEDS: DRONEDARONE HYDROCHLORIDE 400 MG TABLET PO SCH ×2 (05:53→21:48)
[2020-06-18 07:17] LABS: ABSOLUTE BASOPHILS # (AUTO) 0.1 10^3/uL (0.0-0.2); ABSOLUTE EOSINOPHILS # (AUTO) 0.3 10^3/uL (0.0-0.6); ABSOLUTE LYMPHOCYTES (AUTO) 1.9 10^3/uL (0.5-4.7); ABSOLUTE NEUT (AUTO) 7.5 10^3/uL (1.7-8.2); BASOPHILS % (AUTO) 0.9 % (0-2); EOSINOPHILS % (AUTO) 2.7 % (0-6); HEMATOCRIT 26.8 % (36.0-47.0); HEMOGLOBIN 9.3 g/dL (12.0-15.5); LYMPHOCYTES % (AUTO) 17.6 % (13-45); MEAN CORPUSCULAR HGB CONC 34.6 g/dL (32.0-36.0); MEAN CORPUSCULAR VOLUME 81 fl (80-97); PLATELET COUNT 221 10^3/uL (150-450); RED BLOOD COUNT 3.32 10^6/uL (3.72-5.28); RED CELL DISTRIBUTION WIDTH 16.8 % (11.5-14.0); SEGMENTED NEUTROPHILS % (AUTO) 69.8 % (42-78); TOTAL CELLS COUNTED % (AUTO) 100 %; WHITE BLOOD COUNT 10.7 10^3/uL (4.0-10.5)
--- NOTE | 2020-06-18 08:16 | PDOC PROGRESS REPORT ---
Subjective Progress Note for:: 06/18/20 Subjective:: Patient had pleurodesis and port placement yesterday. Patient seems to be doing better today, having a little bit of pain at the chest tube site. Reason For Visit: MALIGNANT EFFUSION,METASTATIC MALIGNANCY,REQUIRES Physical Exam Vital Signs: Temp Pulse Resp BP Pulse Ox 98.6 F 70 16 123/57 L 91 L 06/18/20 03:30 06/18/20 07:35 06/18/20 07:35 06/18/20 03:30 06/18/20 07:35 Intake & Output 06/17/20 06/18/20 06/19/20 06:59 06:59 06:59 Intake Total 3653 2600 Output Total 1880 1125 Balance 1773 1475 Weight 91.4 kg 96.4 kg General appearance: PRESENT: no acute distress, well-developed, well-nourished Head exam: PRESENT: atraumatic, normocephalic Eye exam: PRESENT: conjunctiva pink, EOMI, PERRLA. ABSENT: scleral icterus Ear exam: PRESENT: normal external ear exam Mouth exam: PRESENT: moist, tongue midline Neck exam: ABSENT: carotid bruit, JVD, lymphadenopathy, thyromegaly Respiratory exam: PRESENT: clear to auscultation gwendolyn. ABSENT: rales, rhonchi, wheezes Cardiovascular exam: PRESENT: RRR. ABSENT: diastolic murmur, rubs, systolic murmur Pulses: PRESENT: normal dorsalis pedis pul Vascular exam: PRESENT: normal capillary refill GI/Abdominal exam: PRESENT: normal bowel sounds, soft. ABSENT: distended, guarding, mass, organolmegaly, rebound, tenderness Rectal exam: PRESENT: deferred Extremities exam: PRESENT: full ROM. ABSENT: calf tenderness, clubbing, pedal edema Neurological exam: PRESENT: alert, awake, oriented to person, oriented to place, oriented to time, oriented to situation, CN II-XII grossly intact. ABSENT: motor sensory deficit Psychiatric exam: PRESENT: appropriate affect, normal mood. ABSENT: homicidal ideation, suicidal ideation Skin exam: PRESENT: dry, intact, warm. ABSENT: cyanosis, rash Results Laboratory Results: 06/18/20 06:51 06/17/20 03:31 06/16/20 06/17/20 06/17/20 10:39 03:31 03:31 WBC 8.0 RBC 2.76 L Hgb 7.4 L Hct 21.8 L MCV 79 L MCH 26.9 L MCHC 34.1 RDW 16.3 H Plt Count 204 Seg Neutrophils % Sodium 136.4 L Potassium 4.6 Chloride 112 H Carbon Dioxide 21 L Anion Gap 3 L BUN 25 H Creatinine 1.87 H Est GFR ( Amer) 32 L Glucose 113 H Calcium 7.0 L* Phosphorus 4.1 Magnesium 2.7 H Albumin 1.9 L Blood Type A POSITIVE Antibody Screen NEGATIVE 06/18/20 06:51 WBC 10.7 H RBC 3.32 L Hgb 9.3 L Hct 26.8 L MCV 81 MCH 28.0 MCHC 34.6 RDW 16.8 H Plt Count 221 Seg Neutrophils % 69.8 Sodium Potassium Chloride Carbon Dioxide Anion Gap BUN Creatinine Est GFR ( Amer) Glucose Calcium Phosphorus Magnesium Albumin Blood Type Antibody Screen Impressions: Guidance Needle Placement CT 06/15/20 00:00 IMPRESSION: SUCCESSFUL PLACEMENT OF A 10 W[place] LEFT SIDED CHEST TUBE USING CT GUIDANCE. Thoracentesis 06/15/20 14:50 IMPRESSION: SUCCESSFUL PLACEMENT OF A 10 WOL[place] LEFT SIDED CHEST TUBE USING CT GUIDANCE. Chest X-Ray 06/17/20 00:00 IMPRESSION: Two spot fluoroscopic images show placement of left chest port with catheter tip in the distal left brachiocephalic vein. Assessment & Plan - Diagnosis (1) Malignant pleural effusion Is this a current diagnosis for this admission?: Yes Plan: Status post pleurodesis hopeful discontinuation of output soon. (2) Cancer of left lung Qualifiers: Lung location: hilum of lung Qualified Code(s): C34.02 - Malignant neoplasm of left main bronchus Is this a current diagnosis for this admission?: Yes Plan: Hopeful initiation of chemotherapy soon (3) DESTINY (acute kidney injury) Is this a current diagnosis for this admission?: Yes Plan: Continue fluids, improving (4) Atrial fibrillation Qualifiers: Atrial fibrillation type: longstanding persistent Qualified Code(s): I48.11 - Longstanding persistent atrial fibrillation Is this a current diagnosis for this admission?: Yes Plan: Restart anticoagulation after chest tube output completed (5) Anemia Qualifiers: Anemia type: iron deficiency Iron deficiency anemia type: chronic blood loss Qualified Code(s): D50.0 - Iron deficiency anemia secondary to blood loss (chronic) Is this a current diagnosis for this admission?: Yes Plan: Hemoglobin improved posttransfusion. - Time Time Spent with patient: 35 or more minutes
--- NOTE | 2020-06-18 09:05 | RADIOLOGY REPORT (SQ) ---
EXAM DESCRIPTION: FLUORO/CV PLACEMENT COMPLETE DATE/TIME: 06/17/2020 6:05 pm REASON FOR STUDY: PORT PLACEMENT D63.1 ANEMIA IN CHRONIC KIDNEY DISEASE D46.4 REFRACTORY ANEMIA, U NSPECIFIED FINDINGS: Please see combined report for performance of procedure and radiologic supervision and int erpretation. IMPRESSION: Please see combined report for performance of procedure and radiologic supervision and i nterpretation. Reading location - IP/workstation name: [email or web address]
--- NOTE | 2020-06-18 10:11 | PDOC PROGRESS REPORT ---
Subjective Progress Note for:: 06/18/20 Subjective:: Pains along the right chest tube site. Reason For Visit: MALIGNANT EFFUSION,METASTATIC MALIGNANCY,REQUIRES Physical Exam Vital Signs: Temp Pulse Resp BP Pulse Ox 98.6 F 70 16 123/57 L 91 L 06/18/20 03:30 06/18/20 07:35 06/18/20 07:35 06/18/20 03:30 06/18/20 07:35 Intake & Output 06/17/20 06/18/20 06/19/20 06:59 06:59 06:59 Intake Total 3653 2600 Output Total 1880 1125 Balance 1773 1475 Weight 91.4 kg 96.4 kg Exam: Chest tube sites are intact. Chest tube draining serosanguineous fluid. Results Laboratory Results: 06/18/20 06:51 06/17/20 03:31 06/16/20 06/18/20 10:39 06:51 WBC 10.7 H RBC 3.32 L Hgb 9.3 L Hct 26.8 L MCV 81 MCH 28.0 MCHC 34.6 RDW 16.8 H Plt Count 221 Seg Neutrophils % 69.8 Blood Type A POSITIVE Antibody Screen NEGATIVE Impressions: Guidance Needle Placement CT 06/15/20 00:00 IMPRESSION: SUCCESSFUL PLACEMENT OF A 10 [place] LEFT SIDED CHEST TUBE USING CT GUIDANCE. Thoracentesis 06/15/20 14:50 IMPRESSION: SUCCESSFUL PLACEMENT OF A 10 [place] LEFT SIDED CHEST TUBE USING CT GUIDANCE. Chest X-Ray 06/17/20 00:00 IMPRESSION: Two spot fluoroscopic images show placement of left chest port with catheter tip in the distal left brachiocephalic vein. Guidance Fluoroscopy 06/17/20 00:00 IMPRESSION: Please see combined report for performance of procedure and radiologic supervision and interpretation. Assessment & Plan - Diagnosis (1) Anemia Qualifiers: Anemia type: iron deficiency Iron deficiency anemia type: chronic blood loss Qualified Code(s): D50.0 - Iron deficiency anemia secondary to blood loss (chronic) Is this a current diagnosis for this admission?: Yes (2) Atrial fibrillation Qualifiers: Atrial fibrillation type: longstanding persistent Qualified Code(s): I48.11 - Longstanding persistent atrial fibrillation Is this a current diagnosis for this admission?: Yes (3) Cancer of left lung Qualifiers: Lung location: hilum of lung Qualified Code(s): C34.02 - Malignant neoplasm of left main bronchus Is this a current diagnosis for this admission?: Yes (4) Hemothorax, left Is this a current diagnosis for this admission?: Yes (5) Malignant pleural effusion Is this a current diagnosis for this admission?: Yes - Time Critical Time spent with patient: 15-24 minutes Anticipated Discharge Disposition: Home with Home Health Anticipated Discharge Timeframe: 1 week - Inpatient Certification Medical Necessity: Need for Pain Control, Need for IV Antibiotics - Plan Summary Plan Summary: 74-year-old female with new onset of left lung cancer with mediastinal lymph node and malignant left pleural effusion. Patient is postop day #1 post placement of large chest tube on the left side of the chest but the remaining chest tube placed by IR was left in place. Patient also had a Chemo-Port yesterday placed by . Plans: Continue monitoring chest tube drainage. Dr. Dixon instilled talc in the chest tube and while in the OR yesterday. If the chest tube drainage does not slow down in the next few days then chest tubes will be discontinued and follow-up with x-rays then in about 24 hours placed Pleurx catheter. May use the Chemo-Port anytime.
[2020-06-18] MEDS: NORMAL SALINE 1000 ML 1,000 ML IV PRN ×2 (10:46→17:48)
[2020-06-18] MEDS: METOPROLOL TARTRATE 50 MG TABLET PO SCH (11:00)
[2020-06-18] MEDS: LISINOPRIL 10 MG TABLET PO SCH (11:01)
[2020-06-18] MEDS: FOLIC ACID 1 MG TABLET PO SCH (11:02)
[2020-06-18] MEDS: DOCUSATE SODIUM 100 MG CAPSULE PO SCH (11:02)
[2020-06-18] MEDS: FAMOTIDINE 20 MG TABLET PO SCH ×2 (11:03→21:48)
--- NOTE | 2020-06-18 11:18 | PDOC PROGRESS REPORT ---
Subjective Progress Note for:: 06/18/20 Subjective:: The patient had some pain and discomfort overnight from the procedures yesterday. Mostly at the left chest tube sites. After receiving morphine she is quite comfortable now. Reason For Visit: MALIGNANT EFFUSION,METASTATIC MALIGNANCY,REQUIRES Physical Exam Vital Signs: Temp Pulse Resp BP Pulse Ox 98.5 F 70 16 121/61 91 L 06/18/20 07:30 06/18/20 07:35 06/18/20 07:35 06/18/20 07:30 06/18/20 07:35 Intake & Output 06/17/20 06/18/20 06/19/20 06:59 06:59 06:59 Intake Total 3653 3600 Output Total 1880 1125 Balance 1773 2475 Weight 91.4 kg 96.4 kg General appearance: PRESENT: mild distress Head exam: PRESENT: atraumatic, normocephalic Ear exam: PRESENT: normal external ear exam. ABSENT: bleeding, drainage Respiratory exam: PRESENT: rales - Faint rales right base, symmetrical, unlabored, other - [address] place left side. Drainage is serosanguineous as opposed to bloody yesterday.. ABSENT: prolonged expiratory phas, rhonchi, tachypnea, wheezes Cardiovascular exam: PRESENT: RRR, +S1, +S2 GI/Abdominal exam: PRESENT: normal bowel sounds, soft. ABSENT: guarding, tenderness Rectal exam: PRESENT: deferred Extremities exam: ABSENT: pedal edema Musculoskeletal exam: PRESENT: normal inspection Neurological exam: PRESENT: alert, awake, oriented to person, oriented to place, oriented to situation Psychiatric exam: PRESENT: flat affect. ABSENT: agitated, anxious Focused psych exam: ABSENT: delusional, paranoid, restlessness Results Laboratory Results: 06/18/20 06:51 06/17/20 03:31 06/16/20 06/18/20 10:39 06:51 WBC 10.7 H RBC 3.32 L Hgb 9.3 L Hct 26.8 L MCV 81 MCH 28.0 MCHC 34.6 RDW 16.8 H Plt Count 221 Seg Neutrophils % 69.8 Blood Type A POSITIVE Antibody Screen NEGATIVE Impressions: Guidance Needle Placement CT 06/15/20 00:00 IMPRESSION: SUCCESSFUL PLACEMENT OF A 10 [place] LEFT SIDED CHEST TUBE USING CT GUIDANCE. Thoracentesis 06/15/20 14:50 IMPRESSION: SUCCESSFUL PLACEMENT OF A 10 [place] LEFT SIDED CHEST TUBE USING CT GUIDANCE. Chest X-Ray 06/17/20 00:00 IMPRESSION: Two spot fluoroscopic images show placement of left chest port with catheter tip in the distal left brachiocephalic vein. Guidance Fluoroscopy 06/17/20 00:00 IMPRESSION: Please see combined report for performance of procedure and radiologic supervision and interpretation. Assessment and Plan - Diagnosis (1) Acute renal failure superimposed on stage 3 chronic kidney disease Qualifiers: Acute renal failure type: unspecified Qualified Code(s): N17.9 - Acute kidney failure, unspecified; N18.3 - Chronic kidney disease, stage 3 (moderate) Is this a current diagnosis for this admission?: Yes Plan: Yesterday's chemistries revealed a significant improvement in the renal function. Creatinine was down to 1.87. Continue to monitor renal function with laboratory studies. Monitor intake and output. (2) Adenocarcinoma, lung Qualifiers: Laterality: left Qualified Code(s): C34.92 - Malignant neoplasm of unspecified part of left bronchus or lung Is this a current diagnosis for this admission?: Yes Plan: Patient now has a Port-A-Cath in place. Will begin therapy once discharged from the hospital. (3) Malignant pleural effusion Is this a current diagnosis for this admission?: Yes Plan: Pleurodesis performed yesterday. This should greatly aid in eliminating fluid buildup. (4) Hemothorax, left Is this a current diagnosis for this admission?: Yes Plan: A chest tube showing serosanguineous fluid as opposed to blood. Hemoglobin is improving. Remains off of anticoagulation. (5) Atrial fibrillation Qualifiers: Atrial fibrillation type: longstanding persistent Qualified Code(s): I48.11 - Longstanding persistent atrial fibrillation Is this a current diagnosis for this admission?: Yes Plan: Continue current medication regimen except anticoagulation (6) Chronic anticoagulation Is this a current diagnosis for this admission?: Yes Plan: On hold for the time being (7) Hyperkalemia Is this a current diagnosis for this admission?: Yes Plan: Potassium normal yesterday. Recheck laboratory studies tomorrow. (8) Hypertension Qualifiers: Hypertension type: essential hypertension Qualified Code(s): I10 - Essential (primary) hypertension Is this a current diagnosis for this admission?: Yes Plan: Good blood pressure control. Continue current regimen. (9) Hypocalcemia Is this a current diagnosis for this admission?: Yes Plan: Yesterday calcium was 7.0 but corrected considering low albumin. Recheck chemistries tomorrow. - Time Time Spent with patient: 15-24 minutes Medications reviewed and adjusted accordingly: Yes Anticipated Discharge Disposition: Home with Home Health Anticipated Discharge Timeframe: After chest tube removal
[2020-06-18] MEDS: MAGNESIUM OXIDE 400 MG TABLET PO SCH (13:36)
[2020-06-18] MEDS ORDERED: PROMETHAZINE HCL INJ 25 MG/1 ML VIAL IV PRN (14:00)
[2020-06-18] MEDS ORDERED: ONDANSETRON HCL INJ/PF 4 MG/2 ML SDV IV PRN (14:00)
[2020-06-18] MEDS: ATORVASTATIN CALCIUM 20 MG TABLET PO SCH (21:48)
[2020-06-19] MEDS: MORPHINE SULFATE 10 MG/ML INJ IV PRN ×4 (00:35→21:57)
[2020-06-19] MEDS: ALBUTEROL SULFATE 0.083% NEB 2.5 MG/3 ML AMPUL NEB SCH ×4 (02:00→19:38)
[2020-06-19] MEDS: NORMAL SALINE 1000 ML 1,000 ML IV PRN ×2 (02:00→08:25)
[2020-06-19] MEDS: DRONEDARONE HYDROCHLORIDE 400 MG TABLET PO SCH ×2 (05:25→17:25)
--- NOTE | 2020-06-19 08:28 | PDOC PROGRESS REPORT ---
Subjective Progress Note for:: 06/19/20 Subjective:: No acute events overnight. Patient would like to get up and move around with physical therapy. Per notes, the tube output has reduced. Reason For Visit: MALIGNANT EFFUSION,METASTATIC MALIGNANCY,REQUIRES Physical Exam Vital Signs: Temp Pulse Resp BP Pulse Ox 98.5 F 69 18 97/55 L 94 06/19/20 03:22 06/19/20 03:22 06/19/20 03:22 06/19/20 03:22 06/19/20 03:22 Intake & Output 06/18/20 06/19/20 06/20/20 06:59 06:59 06:59 Intake Total 3600 2000 963 Output Total 1125 1550 Balance 2475 450 963 Weight 96.4 kg 95.9 kg General appearance: PRESENT: no acute distress, well-developed, well-nourished Head exam: PRESENT: atraumatic, normocephalic Eye exam: PRESENT: conjunctiva pink, EOMI, PERRLA. ABSENT: scleral icterus Ear exam: PRESENT: normal external ear exam Mouth exam: PRESENT: moist, tongue midline Neck exam: ABSENT: carotid bruit, JVD, lymphadenopathy, thyromegaly Respiratory exam: PRESENT: clear to auscultation gwendolyn. ABSENT: rales, rhonchi, wheezes Cardiovascular exam: PRESENT: RRR. ABSENT: diastolic murmur, rubs, systolic murmur Pulses: PRESENT: normal dorsalis pedis pul Vascular exam: PRESENT: normal capillary refill GI/Abdominal exam: PRESENT: normal bowel sounds, soft. ABSENT: distended, guarding, mass, organolmegaly, rebound, tenderness Rectal exam: PRESENT: deferred Extremities exam: PRESENT: full ROM. ABSENT: calf tenderness, clubbing, pedal edema Neurological exam: PRESENT: alert, awake, oriented to person, oriented to place, oriented to time, oriented to situation, CN II-XII grossly intact. ABSENT: motor sensory deficit Psychiatric exam: PRESENT: appropriate affect, normal mood. ABSENT: homicidal ideation, suicidal ideation Skin exam: PRESENT: dry, intact, warm. ABSENT: cyanosis, rash Results Laboratory Results: 06/18/20 06:51 06/17/20 03:31 Impressions: Guidance Needle Placement CT 06/15/20 00:00 IMPRESSION: SUCCESSFUL PLACEMENT OF A 10 [place] LEFT SIDED CHEST TUBE USING CT GUIDANCE. Thoracentesis 06/15/20 14:50 IMPRESSION: SUCCESSFUL PLACEMENT OF A 10 [place] LEFT SIDED CHEST TUBE USING CT GUIDANCE. Chest X-Ray 06/17/20 00:00 IMPRESSION: Two spot fluoroscopic images show placement of left chest port with catheter tip in the distal left brachiocephalic vein. Guidance Fluoroscopy 06/17/20 00:00 IMPRESSION: Please see combined report for performance of procedure and radiologic supervision and interpretation. Assessment & Plan - Diagnosis (1) Malignant pleural effusion Is this a current diagnosis for this admission?: Yes Plan: Seems to be improving, discussed with Dr. Dixon yesterday, may take 4 to 5 days. (2) Cancer of left lung Qualifiers: Lung location: hilum of lung Qualified Code(s): C34.02 - Malignant neoplasm of left main bronchus Is this a current diagnosis for this admission?: Yes Plan: If patient is here next week we will consider giving first dose of IV chemothe rapy inpatient. (3) DESTINY (acute kidney injury) Is this a current diagnosis for this admission?: Yes Plan: Improving awaiting labs from today, we should be able to use the port now (4) Atrial fibrillation Qualifiers: Atrial fibrillation type: longstanding persistent Qualified Code(s): I48.11 - Longstanding persistent atrial fibrillation Is this a current diagnosis for this admission?: Yes Plan: Holding anticoagulation until we see that the output is reduced and bloody effusion is not coming out (5) Anemia Qualifiers: Anemia type: iron deficiency Iron deficiency anemia type: chronic blood loss Qualified Code(s): D50.0 - Iron deficiency anemia secondary to blood loss (chronic) Is this a current diagnosis for this admission?: Yes Plan: Improved, awaiting labs - Time Time Spent with patient: 15-24 minutes
--- NOTE | 2020-06-19 10:41 | PDOC PROGRESS REPORT ---
Subjective Progress Note for:: 06/19/20 Subjective:: Continues to do well. She is not having any pain. Chest tube output continues to slow. Reason For Visit: MALIGNANT EFFUSION,METASTATIC MALIGNANCY,REQUIRES Physical Exam Vital Signs: Temp Pulse Resp BP Pulse Ox 98.2 F 78 17 119/58 L 95 06/19/20 08:14 06/19/20 08:14 06/19/20 08:14 06/19/20 08:14 06/19/20 08:14 Intake & Output 06/18/20 06/19/20 06/20/20 06:59 06:59 06:59 Intake Total 3600 2000 963 Output Total 1125 1550 Balance 2475 450 963 Weight 96.4 kg 95.9 kg General appearance: PRESENT: no acute distress, cooperative, well-developed Head exam: PRESENT: atraumatic, normocephalic Ear exam: PRESENT: normal external ear exam. ABSENT: bleeding, drainage Respiratory exam: PRESENT: decreased breath sounds - Left base, rales, symmetrical, unlabored. ABSENT: rhonchi, tachypnea, wheezes Cardiovascular exam: PRESENT: irregular rhythm, +S1, +S2 GI/Abdominal exam: PRESENT: normal bowel sounds, soft. ABSENT: tenderness Rectal exam: PRESENT: deferred Extremities exam: PRESENT: pedal edema Musculoskeletal exam: PRESENT: normal inspection. ABSENT: deformity, dislocation Neurological exam: PRESENT: alert, awake, oriented to person, oriented to place, oriented to situation Psychiatric exam: PRESENT: flat affect. ABSENT: agitated, anxious Focused psych exam: ABSENT: delusional, paranoid, restlessness Results Laboratory Results: 06/18/20 06:51 06/17/20 03:31 Impressions: Guidance Needle Placement CT 06/15/20 00:00 IMPRESSION: SUCCESSFUL PLACEMENT OF A 10 IVORIAN LEFT SIDED CHEST TUBE USING CT GUIDANCE. Thoracentesis 06/15/20 14:50 IMPRESSION: SUCCESSFUL PLACEMENT OF A 10 IVORIAN LEFT SIDED CHEST TUBE USING CT GUIDANCE. Chest X-Ray 06/17/20 00:00 IMPRESSION: Two spot fluoroscopic images show placement of left chest port with catheter tip in the distal left brachiocephalic vein. Guidance Fluoroscopy 06/17/20 00:00 IMPRESSION: Please see combined report for performance of procedure and radiologic supervision and interpretation. Assessment and Plan - Diagnosis (1) Acute renal failure superimposed on stage 3 chronic kidney disease Qualifiers: Acute renal failure type: unspecified Qualified Code(s): N17.9 - Acute kidney failure, unspecified; N18.3 - Chronic kidney disease, stage 3 (moderate) Is this a current diagnosis for this admission?: Yes Plan: Continue to monitor renal function. BUN/creatinine continue to improve (2) Adenocarcinoma, lung Qualifiers: Laterality: left Qualified Code(s): C34.92 - Malignant neoplasm of unspecified part of left bronchus or lung Is this a current diagnosis for this admission?: Yes Plan: Port-A-Cath was placed yesterday. Acute treatment to begin as an outpatient (3) Malignant pleural effusion Is this a current diagnosis for this admission?: Yes Plan: Pleurodesis performed to prevent recurrence effusion (4) Hemothorax, left Is this a current diagnosis for this admission?: Yes Plan: Resolved (5) Atrial fibrillation Qualifiers: Atrial fibrillation type: longstanding persistent Qualified Code(s): I48.11 - Longstanding persistent atrial fibrillation Is this a current diagnosis for this admission?: Yes Plan: Stable on current regimen. Holding anticoagulation at this time. (6) Chronic anticoagulation Is this a current diagnosis for this admission?: Yes Plan: Currently on hold (7) Hyperkalemia Is this a current diagnosis for this admission?: Yes Plan: Potassium slightly higher again today. Patient is on Veltassa. (8) Hypertension Qualifiers: Hypertension type: essential hypertension Qualified Code(s): I10 - Essential (primary) hypertension Is this a current diagnosis for this admission?: Yes Plan: Reasonable blood pressure control. No changes at this time. (9) Hypocalcemia Is this a current diagnosis for this admission?: Yes Plan: Improving slightly. - Time Time Spent with patient: 15-24 minutes Medications reviewed and adjusted accordingly: Yes Anticipated Discharge Disposition: Home with Home Health Anticipated Discharge Timeframe: within 72 hours
[2020-06-19] MEDS: DOCUSATE SODIUM 100 MG CAPSULE PO SCH (10:42)
[2020-06-19] MEDS: METOPROLOL TARTRATE 50 MG TABLET PO SCH (10:42)
[2020-06-19] MEDS: LISINOPRIL 10 MG TABLET PO SCH (10:43)
[2020-06-19] MEDS: FAMOTIDINE 20 MG TABLET PO SCH ×2 (10:43→22:15)
[2020-06-19] MEDS: FOLIC ACID 1 MG TABLET PO SCH (10:44)
[2020-06-19 12:11] LABS: ABSOLUTE BASOPHILS # (AUTO) 0.1 10^3/uL (0.0-0.2); ABSOLUTE EOSINOPHILS # (AUTO) 0.2 10^3/uL (0.0-0.6); ABSOLUTE LYMPHOCYTES (AUTO) 2.1 10^3/uL (0.5-4.7); ABSOLUTE NEUT (AUTO) 7.9 10^3/uL (1.7-8.2); BASOPHILS % (AUTO) 0.7 % (0-2); EOSINOPHILS % (AUTO) 2.2 % (0-6); HEMATOCRIT 26.6 % (36.0-47.0); HEMOGLOBIN 8.8 g/dL (12.0-15.5); LYMPHOCYTES % (AUTO) 18.7 % (13-45); MEAN CORPUSCULAR HEMOGLOBIN 27.1 pg (27.0-33.4); MEAN CORPUSCULAR HGB CONC 32.9 g/dL (32.0-36.0); MEAN CORPUSCULAR VOLUME 82 fl (80-97); MONOCYTES % (AUTO) 9.1 % (3-13); PLATELET COUNT 245 10^3/uL (150-450); RED BLOOD COUNT 3.23 10^6/uL (3.72-5.28); RED CELL DISTRIBUTION WIDTH 17.6 % (11.5-14.0); SEGMENTED NEUTROPHILS % (AUTO) 69.3 % (42-78); TOTAL CELLS COUNTED % (AUTO) 100 %; WHITE BLOOD COUNT 11.3 10^3/uL (4.0-10.5)
[2020-06-19 12:35] LABS: BLOOD UREA NITROGEN 15 mg/dL (7-20); CALCIUM 7.5 mg/dL (8.4-10.2); GLUCOSE 94 mg/dL (75-110); POTASSIUM 5.3 mmol/L (3.6-5.0)
[2020-06-19 12:38] LABS: CARBON DIOXIDE 19 mmol/L (22-30); CHLORIDE 113 mmol/L (98-107)
[2020-06-19 12:41] LABS: ANION GAP 3 (5-19)
[2020-06-19] MEDS: MAGNESIUM OXIDE 400 MG TABLET PO SCH (13:31)
[2020-06-19] MEDS: PATIROMER 8.4 GM SUSP PACKET PO SCH (17:26)
--- NOTE | 2020-06-19 21:43 | PDOC PROGRESS REPORT ---
Subjective Progress Note for:: 06/19/20 Subjective:: Some pains from the chest tube site Reason For Visit: MALIGNANT EFFUSION,METASTATIC MALIGNANCY,REQUIRES Physical Exam Vital Signs: Temp Pulse Resp BP Pulse Ox 98.8 F 68 16 114/55 L 98 06/19/20 16:00 06/19/20 19:38 06/19/20 19:38 06/19/20 16:00 06/19/20 19:38 Intake & Output 06/18/20 06/19/20 06/20/20 06:59 06:59 06:59 Intake Total 3600 2000 1683 Output Total 1125 1550 1075 Balance 2475 450 608 Weight 96.4 kg 95.9 kg Exam: Chest tube drainage still about 500 cc past 24 hours Results Laboratory Results: 06/19/20 10:38 06/19/20 10:38 06/19/20 06/19/20 10:38 10:38 WBC 11.3 H RBC 3.23 L Hgb 8.8 L Hct 26.6 L MCV 82 MCH 27.1 MCHC 32.9 RDW 17.6 H Plt Count 245 Seg Neutrophils % 69.3 Sodium 135.1 L Potassium 5.3 H Chloride 113 H Carbon Dioxide 19 L Anion Gap 3 L BUN 15 Creatinine 1.58 H Est GFR ( Amer) 39 L Glucose 94 Calcium 7.5 L Magnesium 2.1 Impressions: Guidance Needle Placement CT 06/15/20 00:00 IMPRESSION: SUCCESSFUL PLACEMENT OF A 10 UZBEK LEFT SIDED CHEST TUBE USING CT GUIDANCE. Thoracentesis 06/15/20 14:50 IMPRESSION: SUCCESSFUL PLACEMENT OF A 10 UZBEK LEFT SIDED CHEST TUBE USING CT GUIDANCE. Chest X-Ray 06/17/20 00:00 IMPRESSION: Two spot fluoroscopic images show placement of left chest port with catheter tip in the distal left brachiocephalic vein. Guidance Fluoroscopy 06/17/20 00:00 IMPRESSION: Please see combined report for performance of procedure and radiologic supervision and interpretation. Assessment & Plan - Diagnosis (1) Anemia Qualifiers: Anemia type: iron deficiency Iron deficiency anemia type: chronic blood loss Qualified Code(s): D50.0 - Iron deficiency anemia secondary to blood loss (chronic) Is this a current diagnosis for this admission?: Yes (2) Atrial fibrillation Qualifiers: Atrial fibrillation type: longstanding persistent Qualified Code(s): I48.11 - Longstanding persistent atrial fibrillation Is this a current diagnosis for this admission?: Yes (3) Cancer of left lung Qualifiers: Lung location: hilum of lung Qualified Code(s): C34.02 - Malignant neoplasm of left main bronchus Is this a current diagnosis for this admission?: Yes (4) Hemothorax, left Is this a current diagnosis for this admission?: Yes (5) Malignant pleural effusion Is this a current diagnosis for this admission?: Yes - Time Critical Time spent with patient: 15-24 minutes Anticipated Discharge Disposition: Home with Home Health Anticipated Discharge Timeframe: 1 week - Inpatient Certification Medical Necessity: Need For IV Fluids, Need for Pain Control, Risk of Complication if Not Cared For in Hospital - Plan Summary Plan Summary: 74-year-old female with newly 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 Patient had new chest tube placed by Dr. Dixon with installation of palpable powder and placement of Chemo-Port about 2 days ago. The chest tube still draining about 500 cc of serosanguineous fluid in the past 24 hours. Once it slows down after a few days then will pull the chest tube and put a Pleurx catheter after about 24 hours.
[2020-06-19] MEDS: ATORVASTATIN CALCIUM 20 MG TABLET PO SCH (22:15)
[2020-06-20] MEDS: NORMAL SALINE 1000 ML 1,000 ML IV PRN ×3 (00:30→15:50)
[2020-06-20] MEDS: ALBUTEROL SULFATE 0.083% NEB 2.5 MG/3 ML AMPUL NEB SCH ×4 (02:07→21:02)
[2020-06-20] MEDS: MORPHINE SULFATE 10 MG/ML INJ IV PRN ×2 (03:46→15:50)
[2020-06-20] MEDS: DRONEDARONE HYDROCHLORIDE 400 MG TABLET PO SCH ×2 (05:44→17:55)
[2020-06-20] MEDS: LISINOPRIL 10 MG TABLET PO SCH (10:51)
[2020-06-20] MEDS: FAMOTIDINE 20 MG TABLET PO SCH ×2 (10:52→21:38)
[2020-06-20] MEDS: MAGNESIUM OXIDE 400 MG TABLET PO SCH (10:52)
[2020-06-20] MEDS: DOCUSATE SODIUM 100 MG CAPSULE PO SCH (10:52)
[2020-06-20] MEDS: FOLIC ACID 1 MG TABLET PO SCH (10:52)
[2020-06-20] MEDS: METOPROLOL TARTRATE 50 MG TABLET PO SCH (10:53)
--- NOTE | 2020-06-20 11:59 | PDOC PROGRESS REPORT ---
Subjective Progress Note for:: 06/20/20 Subjective:: comfortable Reason For Visit: MALIGNANT EFFUSION,METASTATIC MALIGNANCY,REQUIRES Physical Exam Vital Signs: Temp Pulse Resp BP Pulse Ox 98.0 F 75 18 114/53 L 98 06/20/20 08:48 06/20/20 08:48 06/20/20 08:48 06/20/20 08:48 06/20/20 08:48 Intake & Output 06/19/20 06/20/20 06/21/20 06:59 06:59 06:59 Intake Total 2000 2683 1000 Output Total 1550 1710 Balance 515 822 5990 Weight 95.9 kg 97.3 kg Respiratory exam: PRESENT: clear to auscultation gwendolyn, other - 2 chest ubes on the left with serous fluid Results Laboratory Results: 06/19/20 10:38 06/19/20 10:38 06/19/20 06/19/20 10:38 10:38 WBC 11.3 H RBC 3.23 L Hgb 8.8 L Hct 26.6 L MCV 82 MCH 27.1 MCHC 32.9 RDW 17.6 H Plt Count 245 Seg Neutrophils % 69.3 Sodium 135.1 L Potassium 5.3 H Chloride 113 H Carbon Dioxide 19 L Anion Gap 3 L BUN 15 Creatinine 1.58 H Est GFR ( Amer) 39 L Glucose 94 Calcium 7.5 L Magnesium 2.1 Impressions: Guidance Needle Placement CT 06/15/20 00:00 IMPRESSION: SUCCESSFUL PLACEMENT OF A 10 SPANISH LEFT SIDED CHEST TUBE USING CT GUIDANCE. Thoracentesis 06/15/20 14:50 IMPRESSION: SUCCESSFUL PLACEMENT OF A 10 SPANISH LEFT SIDED CHEST TUBE USING CT GUIDANCE. Chest X-Ray 06/17/20 00:00 IMPRESSION: Two spot fluoroscopic images show placement of left chest port with catheter tip in the distal left brachiocephalic vein. Guidance Fluoroscopy 06/17/20 00:00 IMPRESSION: Please see combined report for performance of procedure and radiologic supervision and interpretation. Assessment & Plan - Diagnosis (1) Adenocarcinoma, lung Qualifiers: Laterality: left Qualified Code(s): C34.92 - Malignant neoplasm of unspecified part of left bronchus or lung - Time Anticipated Discharge Disposition: as per PCP Anticipated Discharge Timeframe: as per PCP - Plan Summary Plan Summary: A/ POD#5 and 3 after left chest tube placement in IR asnd Surgery, respectively POD#3 after Left side talc pouderage Still elevated CT output (> 1000 mL/day) P/ Continue CT drainage on Pleurovac wall suction Pleuredex catheter insertion might be considered if CT output is still > 200 mL/day, despite talc pouderage
[2020-06-20] MEDS ORDERED: NA PHOS,M-B/NA PHOS,DI-BA (ADULT) 133 ML ENEMA PR ONE (12:00)
--- NOTE | 2020-06-20 12:38 | PDOC PROGRESS REPORT ---
Subjective Progress Note for:: 06/20/20 Subjective:: The patient is actually sitting up at the edge of the bed. She is about to eat lunch. Her daughter is taking care of her today. Reason For Visit: MALIGNANT EFFUSION,METASTATIC MALIGNANCY,REQUIRES Physical Exam Vital Signs: Temp Pulse Resp BP Pulse Ox 98.0 F 75 18 114/53 L 98 06/20/20 08:48 06/20/20 08:48 06/20/20 08:48 06/20/20 08:48 06/20/20 08:48 Intake & Output 06/19/20 06/20/20 06/21/20 06:59 06:59 06:59 Intake Total 2000 2683 1000 Output Total 1550 1710 Balance 853 775 4260 Weight 95.9 kg 97.3 kg General appearance: PRESENT: no acute distress, cooperative, well-developed Head exam: PRESENT: atraumatic, normocephalic Ear exam: PRESENT: normal external ear exam. ABSENT: bleeding, drainage Mouth exam: PRESENT: moist, tongue midline Respiratory exam: PRESENT: rales - bases, symmetrical, unlabored, other - Chest tubes left side. ABSENT: rhonchi, tachypnea, wheezes Cardiovascular exam: PRESENT: irregular rhythm, +S1, +S2 GI/Abdominal exam: PRESENT: normal bowel sounds, soft. ABSENT: tenderness Musculoskeletal exam: PRESENT: ambulatory, normal inspection. ABSENT: deformity, dislocation Neurological exam: PRESENT: alert, awake, oriented to person, oriented to place, oriented to situation. ABSENT: altered Psychiatric exam: PRESENT: flat affect. ABSENT: agitated, anxious Focused psych exam: ABSENT: delusional, paranoid, restlessness Results Laboratory Results: 06/19/20 10:38 06/19/20 10:38 06/19/20 10:38 Sodium 135.1 L Potassium 5.3 H Chloride 113 H Carbon Dioxide 19 L Anion Gap 3 L BUN 15 Creatinine 1.58 H Est GFR ( Amer) 39 L Glucose 94 Calcium 7.5 L Magnesium 2.1 Impressions: Guidance Needle Placement CT 06/15/20 00:00 IMPRESSION: SUCCESSFUL PLACEMENT OF A 10 LITHUANIAN LEFT SIDED CHEST TUBE USING CT GUIDANCE. Thoracentesis 06/15/20 14:50 IMPRESSION: SUCCESSFUL PLACEMENT OF A 10 LITHUANIAN LEFT SIDED CHEST TUBE USING CT GUIDANCE. Chest X-Ray 06/17/20 00:00 IMPRESSION: Two spot fluoroscopic images show placement of left chest port with catheter tip in the distal left brachiocephalic vein. Guidance Fluoroscopy 06/17/20 00:00 IMPRESSION: Please see combined report for performance of procedure and radiologic supervision and interpretation. Assessment and Plan - Diagnosis (1) Acute renal failure superimposed on stage 3 chronic kidney disease Qualifiers: Acute renal failure type: unspecified Qualified Code(s): N17.9 - Acute kidney failure, unspecified; N18.3 - Chronic kidney disease, stage 3 (moderate) Is this a current diagnosis for this admission?: Yes Plan: GFR is up to 39 which is back in the stage III range. Continue IV fluids and monitor kidney function. Will change to lactated Ringer's and decrease rate slightly as patient has some rales. (2) Hyperkalemia Is this a current diagnosis for this admission?: Yes Plan: Potassium rising again. We need to adjust Veltassa. Recheck labs tomorrow. (3) Adenocarcinoma, lung Qualifiers: Laterality: left Qualified Code(s): C34.92 - Malignant neoplasm of unspecified part of left bronchus or lung Is this a current diagnosis for this admission?: Yes Plan: Port-A-Cath was placed yesterday. Acute treatment to begin as an outpatient (4) Malignant pleural effusion Is this a current diagnosis for this admission?: Yes Plan: Pleurodesis performed to prevent recurrence effusion (5) Hemothorax, left Is this a current diagnosis for this admission?: Yes Plan: Resolved (6) Atrial fibrillation Qualifiers: Atrial fibrillation type: longstanding persistent Qualified Code(s): I48.11 - Longstanding persistent atrial fibrillation Is this a current diagnosis for this admission?: Yes Plan: Stable on current regimen. Holding anticoagulation at this time. (7) Chronic anticoagulation Is this a current diagnosis for this admission?: Yes Plan: Currently on hold (8) Hypertension Qualifiers: Hypertension type: essential hypertension Qualified Code(s): I10 - Essenti al (primary) hypertension Is this a current diagnosis for this admission?: Yes Plan: Good blood pressure control. (9) Hypocalcemia Is this a current diagnosis for this admission?: Yes Plan: Serum calcium is improved. - Time Medications reviewed and adjusted accordingly: Yes Anticipated Discharge Disposition: Home with Home Health Anticipated Discharge Timeframe: Unknown
[2020-06-20] MEDS: PATIROMER 8.4 GM SUSP PACKET PO SCH (17:55)
[2020-06-20] MEDS ORDERED: IRON SUCROSE COMPLEX INJ/PF 100 MG/5 ML SDV IV ONE (21:00)
[2020-06-20] MEDS: ATORVASTATIN CALCIUM 20 MG TABLET PO SCH (21:38)
[2020-06-21] MEDS: ALBUTEROL SULFATE 0.083% NEB 2.5 MG/3 ML AMPUL NEB SCH ×4 (02:20→21:04)
[2020-06-21] MEDS: RINGERS SOLUTION,LACTATED 1,000 ML IV PRN ×3 (02:30→22:26)
[2020-06-21] MEDS: DRONEDARONE HYDROCHLORIDE 400 MG TABLET PO SCH ×2 (05:46→17:11)
[2020-06-21 06:52] LABS: ABSOLUTE EOSINOPHILS # (AUTO) 0.3 10^3/uL (0.0-0.6); ABSOLUTE LYMPHOCYTES (AUTO) 1.7 10^3/uL (0.5-4.7); ABSOLUTE MONOCYTES (AUTO) 0.7 10^3/uL (0.1-1.4); ABSOLUTE NEUT (AUTO) 5.4 10^3/uL (1.7-8.2); BASOPHILS % (AUTO) 0.5 % (0-2); EOSINOPHILS % (AUTO) 3.9 % (0-6); HEMATOCRIT 23.5 % (36.0-47.0); LYMPHOCYTES % (AUTO) 20.9 % (13-45); MEAN CORPUSCULAR HGB CONC 34.2 g/dL (32.0-36.0); MEAN CORPUSCULAR VOLUME 82 fl (80-97); MONOCYTES % (AUTO) 8.8 % (3-13); PLATELET COUNT 228 10^3/uL (150-450); RED BLOOD COUNT 2.87 10^6/uL (3.72-5.28); RED CELL DISTRIBUTION WIDTH 18.3 % (11.5-14.0); SEGMENTED NEUTROPHILS % (AUTO) 65.9 % (42-78); TOTAL CELLS COUNTED % (AUTO) 100 %; WHITE BLOOD COUNT 8.2 10^3/uL (4.0-10.5)
[2020-06-21 07:23] LABS: ALBUMIN 1.9 g/dL (3.5-5.0); ALKALINE PHOSPHATASE 45 U/L (38-126); ASPARTATE AMINO TRANSFERASE 45 U/L (14-36); BILIRUBIN,DIRECT 0.2 mg/dL (0.0-0.4); BILIRUBIN,TOTAL 0.4 mg/dL (0.2-1.3); BLOOD UREA NITROGEN 12 mg/dL (7-20); CALCIUM 7.3 mg/dL (8.4-10.2); CARBON DIOXIDE 18 mmol/L (22-30); CHLORIDE 117 mmol/L (98-107); GLUCOSE 87 mg/dL (75-110); POTASSIUM 4.5 mmol/L (3.6-5.0); TOTAL PROTEIN 4.3 g/dL (6.3-8.2)
[2020-06-21 07:27] LABS: ANION GAP 3 (5-19)
[2020-06-21] MEDS: LISINOPRIL 10 MG TABLET PO SCH (09:52)
[2020-06-21] MEDS: MAGNESIUM OXIDE 400 MG TABLET PO SCH (09:52)
[2020-06-21] MEDS: METOPROLOL TARTRATE 50 MG TABLET PO SCH (09:52)
[2020-06-21] MEDS: FAMOTIDINE 20 MG TABLET PO SCH ×2 (09:53→22:25)
[2020-06-21] MEDS: FOLIC ACID 1 MG TABLET PO SCH (09:53)
[2020-06-21] MEDS: DOCUSATE SODIUM 100 MG CAPSULE PO SCH (09:53)
--- NOTE | 2020-06-21 10:43 | PDOC PROGRESS REPORT ---
Subjective Progress Note for:: 06/21/20 Subjective:: No c/o Reason For Visit: MALIGNANT EFFUSION,METASTATIC MALIGNANCY,REQUIRES Physical Exam Vital Signs: Temp Pulse Resp BP Pulse Ox 98.3 F 69 16 135/56 H 95 06/21/20 08:20 06/21/20 08:09 06/21/20 08:09 06/21/20 08:00 06/21/20 08:09 Intake & Output 06/20/20 06/21/20 06/22/20 06:59 06:59 06:59 Intake Total 2683 2972 Output Total 1710 1950 Balance 973 1022 Weight 97.3 kg 100.4 kg General appearance: PRESENT: no acute distress Respiratory exam: PRESENT: clear to auscultation gwendolyn, other - left side chest tube x 2 with serous fluid Results Laboratory Results: 06/21/20 05:50 06/21/20 05:50 06/21/20 06/21/20 05:50 05:50 WBC 8.2 RBC 2.87 L Hgb 8.0 L Hct 23.5 L MCV 82 MCH 28.0 MCHC 34.2 RDW 18.3 H Plt Count 228 Seg Neutrophils % 65.9 Sodium 138.2 Potassium 4.5 Chloride 117 H Carbon Dioxide 18 L Anion Gap 3 L BUN 12 Creatinine 1.27 H Est GFR ( Amer) 50 L Glucose 87 Calcium 7.3 L Magnesium 1.8 Total Bilirubin 0.4 AST 45 H Alkaline Phosphatase 45 Total Protein 4.3 L Albumin 1.9 L Impressions: Guidance Needle Placement CT 06/15/20 00:00 IMPRESSION: SUCCESSFUL PLACEMENT OF A 10 ENGLISH LEFT SIDED CHEST TUBE USING CT GUIDANCE. Thoracentesis 06/15/20 14:50 IMPRESSION: SUCCESSFUL PLACEMENT OF A 10 ENGLISH LEFT SIDED CHEST TUBE USING CT GUIDANCE. Chest X-Ray 06/17/20 00:00 IMPRESSION: Two spot fluoroscopic images show placement of left chest port with catheter tip in the distal left brachiocephalic vein. Guidance Fluoroscopy 06/17/20 00:00 IMPRESSION: Please see combined report for performance of procedure and radiologic supervision and interpretation. Assessment & Plan - Diagnosis (1) Adenocarcinoma, lung Qualifiers: Laterality: left Qualified Code(s): C34.92 - Malignant neoplasm of unspecified part of left bronchus or lung Is this a current diagnosis for this admission?: Yes (2) Malignant pleural effusion Is this a current diagnosis for this admission?: Yes - Time Anticipated Discharge Disposition: Home, Self Care Anticipated Discharge Timeframe: As per PCP - Plan Summary Plan Summary: A/ Left lung cancer Left lesion pleural effusion S/p left chest tube placement x2 S/p left chest talc pleurodesis 1 week ago Still elevated left chest tube drain output (700 mL the past 24 hours) Plan: We will discuss with Dr. Dixon management of the chest tube versus Pleurodex catheter placement N.p.o. after midnight
[2020-06-21] MEDS ORDERED: BISACODYL 5 MG TABEC PO PRN (10:51)
[2020-06-21] MEDS ORDERED: BISACODYL 10 MG SUPP.RECT PR PRN (10:51)
--- NOTE | 2020-06-21 10:57 | PDOC PROGRESS REPORT ---
Subjective Progress Note for:: 06/21/20 Subjective:: Actually resting comfortably in bed. Appears to be in good spirits this morning. He does not appear to be in discomfort. Still having constipation. Reason For Visit: MALIGNANT EFFUSION,METASTATIC MALIGNANCY,REQUIRES Physical Exam Vital Signs: Temp Pulse Resp BP Pulse Ox 98.3 F 69 16 135/56 H 95 06/21/20 08:20 06/21/20 08:09 06/21/20 08:09 06/21/20 08:00 06/21/20 08:09 Intake & Output 06/20/20 06/21/20 06/22/20 06:59 06:59 06:59 Intake Total 2683 2972 Output Total 1710 1950 Balance 973 1022 Weight 97.3 kg 100.4 kg General appearance: PRESENT: no acute distress, cooperative, well-developed Head exam: PRESENT: atraumatic, normocephalic Respiratory exam: PRESENT: decreased breath sounds - Left side, rales - Right base, symmetrical, unlabored, other - Chest tubes on left. ABSENT: rhonchi, tachypnea, wheezes Cardiovascular exam: PRESENT: irregular rhythm. ABSENT: bradycardia, diastolic murmur, systolic murmur, tachycardia GI/Abdominal exam: PRESENT: normal bowel sounds, soft. ABSENT: distended, guarding, tenderness Rectal exam: PRESENT: deferred Extremities exam: ABSENT: pedal edema Musculoskeletal exam: PRESENT: ambulatory. ABSENT: deformity, dislocation Neurological exam: PRESENT: alert, awake, oriented to person, oriented to place, oriented to time, oriented to situation, CN II-XII grossly intact. ABSENT: altered Psychiatric exam: PRESENT: appropriate affect, normal mood. ABSENT: agitated, anxious Focused psych exam: ABSENT: delusional, paranoid, restlessness Skin exam: PRESENT: dry, normal color, warm. ABSENT: rash Results Laboratory Results: 06/21/20 05:50 06/21/20 05:50 06/21/20 06/21/20 05:50 05:50 WBC 8.2 RBC 2.87 L Hgb 8.0 L Hct 23.5 L MCV 82 MCH 28.0 MCHC 34.2 RDW 18.3 H Plt Count 228 Seg Neutrophils % 65.9 Sodium 138.2 Potassium 4.5 Chloride 117 H Carbon Dioxide 18 L Anion Gap 3 L BUN 12 Creatinine 1.27 H Est GFR ( Amer) 50 L Glucose 87 Calcium 7.3 L Magnesium 1.8 Total Bilirubin 0.4 AST 45 H Alkaline Phosphatase 45 Total Protein 4.3 L Albumin 1.9 L Impressions: Guidance Needle Placement CT 06/15/20 00:00 IMPRESSION: SUCCESSFUL PLACEMENT OF A 10 NIUEAN LEFT SIDED CHEST TUBE USING CT GUIDANCE. Thoracentesis 06/15/20 14:50 IMPRESSION: SUCCESSFUL PLACEMENT OF A 10 NIUEAN LEFT SIDED CHEST TUBE USING CT GUIDANCE. Chest X-Ray 06/17/20 00:00 IMPRESSION: Two spot fluoroscopic images show placement of left chest port with catheter tip in the distal left brachiocephalic vein. Guidance Fluoroscopy 06/17/20 00:00 IMPRESSION: Please see combined report for performance of procedure and radiologic supervision and interpretation. Assessment and Plan - Diagnosis (1) Acute renal failure superimposed on stage 3 chronic kidney disease Qualifiers: Acute renal failure type: unspecified Qualified Code(s): N17.9 - Acute kidney failure, unspecified; N18.3 - Chronic kidney disease, stage 3 (moderate) Is this a current diagnosis for this admission?: Yes Plan: GFR is now 50. Continue current management. Continue to monitor renal function. (2) Hyperkalemia Is this a current diagnosis for this admission?: Yes Plan: Potassium is normal today. Continue to monitor. (3) Adenocarcinoma, lung Qualifiers: Laterality: left Qualified Code(s): C34.92 - Malignant neoplasm of unspecified part of left bronchus or lung Is this a current diagnosis for this admission?: Yes Plan: Port-A-Cath was placed yesterday. Acute treatment to begin as an outpatient (4) Malignant pleural effusion Is this a current diagnosis for this admission?: Yes Plan: Pleurodesis performed to prevent recurrence effusion (5) Hemothorax, left Is this a current diagnosis for this admission?: Yes Plan: Resolved (6) Atrial fibrillation Qualifiers: Atrial fibrillation type: longstanding persistent Qualified Code(s): I48.11 - Longstanding persistent atrial fibrillation Is this a current diagnosis for this admission?: Yes Plan: Good rate control. Holding anticoagulation. (7) Chronic anticoagulation Is this a current diagnosis for this admission?: Yes Plan: On hold (8) Hypertension Qualifiers: Hypertension type: essential hypertension Qualified Code(s): I10 - Essential (primary) hypertension Is this a current diagnosis for this admission?: Yes Plan: No changes at this time. Blood pressure is reasonably controlled. (9) Hypocalcemia Is this a current diagnosis for this admission?: Yes Plan: Corrects for low albumin. Continue to monitor closely. (10) Anemia Qualifiers: Anemia type: iron deficiency Iron deficiency anemia type: chronic blood loss Qualified Code(s): D50.0 - Iron deficiency anemia secondary to blood loss (chronic) Is this a current diagnosis for this admission?: Yes Plan: Truly multifactorial including her chronic kidney disease and blood loss from her hemothorax as well as low iron levels. She did receive 1 dose of IV iron yesterday. Consider a second dose possibly tomorrow. Hemoglobin is down to 8.0. Recheck hemoglobin tomorrow and if lower consider transfusion. - Time Time Spent with patient: 15-24 minutes Medications reviewed and adjusted accordingly: Yes Anticipated Discharge Disposition: Home with Home Health Anticipated Discharge Timeframe: Unknown
[2020-06-21] MEDS: PATIROMER 8.4 GM SUSP PACKET PO SCH (16:13)
[2020-06-21] MEDS: ATORVASTATIN CALCIUM 20 MG TABLET PO SCH (22:25)
[2020-06-22] MEDS: ALBUTEROL SULFATE 0.083% NEB 2.5 MG/3 ML AMPUL NEB SCH ×4 (01:56→20:59)
[2020-06-22 05:56] LABS: HEMATOCRIT 23.5 % (36.0-47.0); MEAN CORPUSCULAR HEMOGLOBIN 27.5 pg (27.0-33.4); MEAN CORPUSCULAR VOLUME 81 fl (80-97); PLATELET COUNT 224 10^3/uL (150-450); RED CELL DISTRIBUTION WIDTH 17.7 % (11.5-14.0); WHITE BLOOD COUNT 7.6 10^3/uL (4.0-10.5)
[2020-06-22 06:18] LABS: ALBUMIN 1.8 g/dL (3.5-5.0); BLOOD UREA NITROGEN 7 mg/dL (7-20); CALCIUM 7.4 mg/dL (8.4-10.2); CARBON DIOXIDE 19 mmol/L (22-30); CHLORIDE 116 mmol/L (98-107); GLUCOSE 80 mg/dL (75-110); PHOSPHORUS 3.6 mg/dL (2.5-4.5); POTASSIUM 4.2 mmol/L (3.6-5.0)
[2020-06-22] MEDS: DRONEDARONE HYDROCHLORIDE 400 MG TABLET PO SCH ×2 (06:26→19:08)
[2020-06-22 06:27] LABS: ANION GAP 3 (5-19)
--- NOTE | 2020-06-22 10:13 | RADIOLOGY REPORT (SQ) ---
EXAM DESCRIPTION: CHEST SINGLE VIEW IMAGES COMPLETED DATE/TIME: 06/22/2020 9:56 am REASON FOR STUDY: pleural effusion COMPARISON: 06/16/2020 EXAM PARAMETERS: NUMBER OF VIEWS: One view. TECHNIQUE: Single frontal radiographic view of the chest acquired. RADIATION DOSE: NA LIMITATIONS: None. FINDINGS: LUNGS AND PLEURA: Low lung volumes with resultant bronchovascular crowding. Persistent re trocardiac opacity. Persistent small left-sided pleural effusion. No pneumothorax. MEDIASTINUM AND HILAR STRUCTURES: No masses. Contour normal. HEART AND VASCULAR STRUCTURES: Heart normal in size. Normal vasculature. BONES: No acute findings. HARDWARE: Interval placement of a left anterior chest wall Port-A-Cath which terminates in the region of the superior vena cava. Interval placement of a large for left hemithorax chest tube which termi nates atypically. Stable position of a left lower thoracic pleural drain. OTHER: No other significant finding. IMPRESSION: 1. Stable pulmonary examination. 2. Lines and tubes as above. No pneumothorax. TECHNICAL DOCUMENTATION: JOB ID: [id number] [employer]- All Rights Reserved Reading location - IP/workstation name: [email or web address]
[2020-06-22] MEDS: FAMOTIDINE 20 MG TABLET PO SCH ×2 (10:37→21:17)
[2020-06-22] MEDS: LISINOPRIL 10 MG TABLET PO SCH (10:37)
[2020-06-22] MEDS: RINGERS SOLUTION,LACTATED 1,000 ML IV PRN ×2 (10:37→10:41)
[2020-06-22] MEDS: METOPROLOL TARTRATE 50 MG TABLET PO SCH (10:38)
[2020-06-22] MEDS: FOLIC ACID 1 MG TABLET PO SCH (10:40)
[2020-06-22] MEDS: DOCUSATE SODIUM 100 MG CAPSULE PO SCH ×2 (10:40)
[2020-06-22] MEDS: POLYETHYLENE GLYCOL 3350 POWDER 17 GM/1 PACKET PO SCH ×2 (10:40)
[2020-06-22] MEDS: MAGNESIUM OXIDE 400 MG TABLET PO SCH (10:40)
--- NOTE | 2020-06-22 12:32 | PDOC PROGRESS REPORT ---
Subjective Progress Note for:: 06/22/20 Subjective:: 74-year-old female with a left-sided malignant pleural effusion. The patient had a tube thoracostomy placed with a subsequent chemical pleurodesis. She continues to produce large amounts of pleural fluid from her left chest. At present, the patient denies significant chest pain, shortness of breath, fevers, chills, nausea, vomiting, dizziness, orthostasis. Reason For Visit: MALIGNANT EFFUSION,METASTATIC MALIGNANCY,REQUIRES Physical Exam Vital Signs: Temp Pulse Resp BP Pulse Ox 98.9 F 74 16 163/72 H 97 06/22/20 07:41 06/22/20 08:02 06/22/20 08:02 06/22/20 07:41 06/22/20 08:02 Intake & Output 06/21/20 06/22/20 06/23/20 06:59 06:59 06:59 Intake Total 2972 2573 1007 Output Total 1950 2515 Balance 1022 58 1007 Weight 100.4 kg 100.1 kg General appearance: PRESENT: no acute distress, cooperative Head exam: PRESENT: atraumatic, normocephalic Eye exam: PRESENT: EOMI, PERRLA. ABSENT: scleral icterus Mouth exam: PRESENT: neck supple Neck exam: ABSENT: meningismus, tenderness, thyromegaly, tracheal deviation Respiratory exam: PRESENT: unlabored, other - Left-sided tube thoracostomy was in place. Large amount of serous fluid present in the tubing.. ABSENT: tachypnea Cardiovascular exam: ABSENT: tachycardia GI/Abdominal exam: PRESENT: soft. ABSENT: tenderness Rectal exam: PRESENT: deferred Musculoskeletal exam: ABSENT: deformity Neurological exam: PRESENT: alert, awake Psychiatric exam: ABSENT: agitated, anxious, depressed Focused psych exam: ABSENT: delusional Skin exam: ABSENT: cyanosis, erythema, jaundice Results Laboratory Results: 06/22/20 05:46 06/22/20 05:46 06/22/20 06/22/20 05:46 05:46 WBC 7.6 RBC 2.90 L Hgb 8.0 L Hct 23.5 L MCV 81 MCH 27.5 MCHC 34.0 RDW 17.7 H Plt Count 224 Sodium 138.0 Potassium 4.2 Chloride 116 H Carbon Dioxide 19 L Anion Gap 3 L BUN 7 Creatinine 1.08 Est GFR ( Amer) > 60 Glucose 80 Calcium 7.4 L Phosphorus 3.6 Magnesium 1.6 Albumin 1.8 L Impressions: Guidance Needle Placement CT 06/15/20 00:00 IMPRESSION: SUCCESSFUL PLACEMENT OF A 10 ESTONIAN LEFT SIDED CHEST TUBE USING CT GUIDANCE. Thoracentesis 06/15/20 14:50 IMPRESSION: SUCCESSFUL PLACEMENT OF A 10 ESTONIAN LEFT SIDED CHEST TUBE USING CT GUIDANCE. Guidance Fluoroscopy 06/17/20 00:00 IMPRESSION: Please see combined report for performance of procedure and radiologic supervision and interpretation. Chest X-Ray 06/22/20 00:00 IMPRESSION: 1. Stable pulmonary examination. 2. Lines and tubes as above. No pneumothorax. Assessment & Plan - Diagnosis (1) Malignant pleural effusion Is this a current diagnosis for this admission?: Yes - Time Anticipated Discharge Disposition: Unknown Anticipated Discharge Timeframe: unknown - Plan Summary Plan Summary: 74-year-old female status post chemical pleurodesis. This has failed. I discussed further management options with the family. I will clamp her chest tube tomorrow, in order to allow pleural fluid to fill the thoracic space. After this is complete, plan for Pleurx catheter placement on Monday. The family has agreed to this. Risks/benefits discussed, informed consent obtained, and all questions answered.
[2020-06-22] MEDS ORDERED: RINGERS SOLUTION,LACTATED 1,000 ML IV PRN (12:45)
--- NOTE | 2020-06-22 12:46 | PDOC PROGRESS REPORT ---
Subjective Progress Note for:: 06/22/20 Subjective:: No acute events overnight, still putting out about 1000 mL/day. Case discussed with Dr. Dixon as well as family, patient will require Pleurx catheter placement which will hopefully happen in the next 24 to 48 hours. Thereafter hopeful discharge home. Reason For Visit: MALIGNANT EFFUSION,METASTATIC MALIGNANCY,REQUIRES Physical Exam Vital Signs: Temp Pulse Resp BP Pulse Ox 98.9 F 74 16 163/72 H 97 06/22/20 07:41 06/22/20 08:02 06/22/20 08:02 06/22/20 07:41 06/22/20 08:02 Intake & Output 06/21/20 06/22/20 06/23/20 06:59 06:59 06:59 Intake Total 2972 2573 1007 Output Total 1950 2515 Balance 1022 58 1007 Weight 100.4 kg 100.1 kg General appearance: PRESENT: no acute distress, well-developed, well-nourished Head exam: PRESENT: atraumatic, normocephalic Eye exam: PRESENT: conjunctiva pink, EOMI, PERRLA. ABSENT: scleral icterus Ear exam: PRESENT: normal external ear exam Mouth exam: PRESENT: moist, tongue midline Neck exam: ABSENT: carotid bruit, JVD, lymphadenopathy, thyromegaly Respiratory exam: PRESENT: clear to auscultation gwendolyn. ABSENT: rales, rhonchi, wheezes Cardiovascular exam: PRESENT: RRR. ABSENT: diastolic murmur, rubs, systolic murmur Pulses: PRESENT: normal dorsalis pedis pul Vascular exam: PRESENT: normal capillary refill GI/Abdominal exam: PRESENT: normal bowel sounds, soft. ABSENT: distended, guarding, mass, organolmegaly, rebound, tenderness Rectal exam: PRESENT: deferred Extremities exam: PRESENT: full ROM. ABSENT: calf tenderness, clubbing, pedal edema Neurological exam: PRESENT: alert, awake, oriented to person, oriented to place, oriented to time, oriented to situation, CN II-XII grossly intact. ABSENT: motor sensory deficit Psychiatric exam: PRESENT: appropriate affect, normal mood. ABSENT: homicidal i deation, suicidal ideation Skin exam: PRESENT: dry, intact, warm. ABSENT: cyanosis, rash Results Laboratory Results: 06/22/20 05:46 06/22/20 05:46 06/22/20 06/22/20 05:46 05:46 WBC 7.6 RBC 2.90 L Hgb 8.0 L Hct 23.5 L MCV 81 MCH 27.5 MCHC 34.0 RDW 17.7 H Plt Count 224 Sodium 138.0 Potassium 4.2 Chloride 116 H Carbon Dioxide 19 L Anion Gap 3 L BUN 7 Creatinine 1.08 Est GFR ( Amer) > 60 Glucose 80 Calcium 7.4 L Phosphorus 3.6 Magnesium 1.6 Albumin 1.8 L Impressions: Guidance Needle Placement CT 06/15/20 00:00 IMPRESSION: SUCCESSFUL PLACEMENT OF A 10 CHILEAN LEFT SIDED CHEST TUBE USING CT GUIDANCE. Thoracentesis 06/15/20 14:50 IMPRESSION: SUCCESSFUL PLACEMENT OF A 10 CHILEAN LEFT SIDED CHEST TUBE USING CT GUIDANCE. Guidance Fluoroscopy 06/17/20 00:00 IMPRESSION: Please see combined report for performance of procedure and radiologic supervision and interpretation. Chest X-Ray 06/22/20 00:00 IMPRESSION: 1. Stable pulmonary examination. 2. Lines and tubes as above. No pneumothorax. Assessment & Plan - Diagnosis (1) Malignant pleural effusion Is this a current diagnosis for this admission?: Yes Plan: Plan for Pleurx catheter placement (2) Cancer of left lung Qualifiers: Qualified Code(s): C34.02 - Malignant neoplasm of left main bronchus Is this a current diagnosis for this admission?: Yes Plan: Hopeful chemotherapy initiation this week as an outpatient (3) DESTINY (acute kidney injury) Is this a current diagnosis for this admission?: Yes Plan: Creatinine now back to baseline (4) Atrial fibrillation Qualifiers: Qualified Code(s): I48.11 - Longstanding persistent atrial fibrillation Is this a current diagnosis for this admission?: Yes Plan: Holding anticoagulation until Pleurx catheter placement (5) Anemia Qualifiers: Qualified Code(s): D50.0 - Iron deficiency anemia secondary to blood loss (chronic) Is this a current diagnosis for this admission?: Yes Plan: hb stable continue to monitor - Time Time Spent with patient: 35 or more minutes
--- NOTE | 2020-06-22 12:46 | PDOC PROGRESS REPORT ---
Subjective Progress Note for:: 06/20/20 Subjective:: No acute events overnight, output seems to be reducing Reason For Visit: MALIGNANT EFFUSION,METASTATIC MALIGNANCY,REQUIRES Physical Exam Vital Signs: Temp Pulse Resp BP Pulse Ox 98.0 F 75 18 114/53 L 98 06/20/20 08:48 06/20/20 08:48 06/20/20 08:48 06/20/20 08:48 06/20/20 08:48 Intake & Output 06/19/20 06/20/20 06/21/20 06:59 06:59 06:59 Intake Total 1999 2683 1000 Output Total 1550 1710 Balance 890 278 4487 Weight 95.9 kg 97.3 kg General appearance: PRESENT: no acute distress, well-developed, well-nourished Head exam: PRESENT: atraumatic, normocephalic Eye exam: PRESENT: conjunctiva pink, EOMI, PERRLA. ABSENT: scleral icterus Ear exam: PRESENT: normal external ear exam Mouth exam: PRESENT: moist, tongue midline Neck exam: ABSENT: carotid bruit, JVD, lymphadenopathy, thyromegaly Respiratory exam: PRESENT: clear to auscultation gwendolyn. ABSENT: rales, rhonchi, wheezes Cardiovascular exam: PRESENT: RRR. ABSENT: diastolic murmur, rubs, systolic murmur Pulses: PRESENT: normal dorsalis pedis pul Vascular exam: PRESENT: normal capillary refill GI/Abdominal exam: PRESENT: normal bowel sounds, soft. ABSENT: distended, guarding, mass, organolmegaly, rebound, tenderness Rectal exam: PRESENT: deferred Extremities exam: PRESENT: full ROM. ABSENT: calf tenderness, clubbing, pedal edema Neurological exam: PRESENT: alert, awake, oriented to person, oriented to place, oriented to time, oriented to situation, CN II-XII grossly intact. ABSENT: motor sensory deficit Psychiatric exam: PRESENT: appropriate affect, normal mood. ABSENT: homicidal ideation, suicidal ideation Skin exam: PRESENT: dry, intact, warm. ABSENT: cyanosis, rash Results Laboratory Results: 06/19/20 10:38 06/19/20 10:38 06/19/20 06/19/20 10:38 10:38 WBC 11.3 H RBC 3.23 L Hgb 8.8 L Hct 26.6 L MCV 82 MCH 27.1 MCHC 32.9 RDW 17.6 H Plt Count 245 Seg Neutrophils % 69.3 Sodium 135.1 L Potassium 5.3 H Chloride 113 H Carbon Dioxide 19 L Anion Gap 3 L BUN 15 Creatinine 1.58 H Est GFR ( Amer) 39 L Glucose 94 Calcium 7.5 L Magnesium 2.1 Impressions: Guidance Needle Placement CT 06/15/20 00:00 IMPRESSION: SUCCESSFUL PLACEMENT OF A 10 BRITISH LEFT SIDED CHEST TUBE USING CT GUIDANCE. Thoracentesis 06/15/20 14:50 IMPRESSION: SUCCESSFUL PLACEMENT OF A 10 BRITISH LEFT SIDED CHEST TUBE USING CT GUIDANCE. Chest X-Ray 06/17/20 00:00 IMPRESSION: Two spot fluoroscopic images show placement of left chest port with catheter tip in the distal left brachiocephalic vein. Guidance Fluoroscopy 06/17/20 00:00 IMPRESSION: Please see combined report for performance of procedure and radiologic supervision and interpretation. Assessment & Plan - Diagnosis (1) Malignant pleural effusion Is this a current diagnosis for this admission?: Yes Plan: Hopeful continued reduction in output, hopefully it will reduce to a level that we can remove the chest tubes. However if that cannot be done then Pleurx catheter will need to be placed. (2) Cancer of left lung Qualifiers: Qualified Code(s): C34.02 - Malignant neoplasm of left main bronchus Is this a current diagnosis for this admission?: Yes Plan: Plan for chemotherapy initiation once patient is discharged. (3) DESTINY (acute kidney injury) Is this a current diagnosis for this admission?: Yes Plan: Improving (4) Atrial fibrillation Qualifiers: Qualified Code(s): I48.11 - Longstanding persistent atrial fibrillation Is this a current diagnosis for this admission?: Yes Plan: Holding on anticoagulation (5) Anemia Qualifiers: Qualified Code(s): D50.0 - Iron deficiency anemia secondary to blood loss (ch ronic) Is this a current diagnosis for this admission?: Yes Plan: Hemoglobin 8.8, if it gets under 8 would transfuse 1 unit. - Time Time Spent with patient: 25-34 minutes
--- NOTE | 2020-06-22 12:48 | PDOC PROGRESS REPORT ---
Subjective Progress Note for:: 06/22/20 Subjective:: Patient is resting comfortably in bed. Her son is at the bedside with multiple questions. The patient herself has no complaints. Reason For Visit: MALIGNANT EFFUSION,METASTATIC MALIGNANCY,REQUIRES Physical Exam Vital Signs: Temp Pulse Resp BP Pulse Ox 98.9 F 74 16 163/72 H 97 06/22/20 07:41 06/22/20 08:02 06/22/20 08:02 06/22/20 07:41 06/22/20 08:02 Intake & Output 06/21/20 06/22/20 06/23/20 06:59 06:59 06:59 Intake Total 2972 2573 1007 Output Total 1950 2515 Balance 1022 58 1007 Weight 100.4 kg 100.1 kg General appearance: PRESENT: no acute distress, cooperative, well-developed Head exam: PRESENT: atraumatic, normocephalic Mouth exam: PRESENT: moist, tongue midline Respiratory exam: PRESENT: clear to auscultation gwendolyn - Anteriorly, symmetrical, unlabored. ABSENT: rales, rhonchi, tachypnea, wheezes Cardiovascular exam: PRESENT: RRR, +S1, +S2. ABSENT: bradycardia, diastolic murmur, irregular rhythm, systolic murmur, tachycardia GI/Abdominal exam: PRESENT: normal bowel sounds, soft. ABSENT: tenderness Neurological exam: PRESENT: alert, awake, oriented to person, oriented to place, oriented to situation. ABSENT: altered Psychiatric exam: PRESENT: appropriate affect. ABSENT: agitated, anxious Focused psych exam: ABSENT: delusional, paranoid, restlessness Results Laboratory Results: 06/22/20 05:46 06/22/20 05:46 06/22/20 06/22/20 05:46 05:46 WBC 7.6 RBC 2.90 L Hgb 8.0 L Hct 23.5 L MCV 81 MCH 27.5 MCHC 34.0 RDW 17.7 H Plt Count 224 Sodium 138.0 Potassium 4.2 Chloride 116 H Carbon Dioxide 19 L Anion Gap 3 L BUN 7 Creatinine 1.08 Est GFR ( Amer) > 60 Glucose 80 Calcium 7.4 L Phosphorus 3.6 Magnesium 1.6 Albumin 1.8 L Impressions: Guidance Needle Placement CT 06/15/20 00:00 IMPRESSION: SUCCESSFUL PLACEMENT OF A 10 UKRAINIAN LEFT SIDED CHEST TUBE USING CT GUIDANCE. Thoracentesis 06/15/20 14:50 IMPRESSION: SUCCESSFUL PLACEMENT OF A 10 UKRAINIAN LEFT SIDED CHEST TUBE USING CT GUIDANCE. Guidance Fluoroscopy 06/17/20 00:00 IMPRESSION: Please see combined report for performance of procedure and radiologic supervision and interpretation. Chest X-Ray 06/22/20 00:00 IMPRESSION: 1. Stable pulmonary examination. 2. Lines and tubes as above. No pneumothorax. Assessment and Plan - Diagnosis (1) Adenocarcinoma, lung Qualifiers: Laterality: left Qualified Code(s): C34.92 - Malignant neoplasm of unspecified part of left bronchus or lung Is this a current diagnosis for this admission?: Yes Plan: Please also see Dr. Dixon's note. The patient is still having more drainage from the chest tube than desired. Once the effusion is appropriately treated the patient will discharge and begin treatment of the carcinoma with Dr. Horton as an outpatient. (2) Malignant pleural effusion Is this a current diagnosis for this admission?: Yes Plan: Pleurodesis attempted. The patient is still getting out more fluid from the chest tube then would be the desired result for successful pleurodesis. For that reason Dr. Dixon is going to clamp the chest tube. Some fluid will build up and it will give him the opportunity to insert a Pleurx drain catheter on Mon with likely discharged home. (3) Hyperkalemia Is this a current diagnosis for this admission?: Yes Plan: Currently on [place]. With her GFR in the normal range. Monitor closely as we may be able to discontinue this and just watch her serum potassium levels. (4) Atrial fibrillation Qualifiers: Atrial fibrillation type: longstanding persistent Qualified Code(s): I48.11 - Longstanding persistent atrial fibrillation Is this a current diagnosis for this admission?: Yes Plan: Currently stable. Continue dronedarone and metoprolol. Chronic anticoagulation on hold. (5) Chronic anticoagulation Is this a current diagnosis for this admission?: Yes Plan: Temporarily on hold (6) Hypertension Qualifiers: Hypertension type: essential hypertension Qualified Code(s): I10 - Essential (primary) hypertension Is this a current diagnosis for this admission?: Yes Plan: Blood pressure tends to be higher early in the morning as her medications are not given until 10:00. (7) Hypocalcemia Is this a current diagnosis for this admission?: Yes Plan: monitor and supplement accordingly (8) Anemia Qualifiers: Anemia type: iron deficiency Iron deficiency anemia type: chronic blood loss Qualified Code(s): D50.0 - Iron deficiency anemia secondary to blood loss (chronic) Is this a current diagnosis for this admission?: Yes Plan: transfuse when Hgb <8 and consider IV iron (9) Acute renal failure superimposed on stage 3 chronic kidney disease Qualifiers: Acute renal failure type: unspecified Qualified Code(s): N17.9 - Acute kidney failure, unspecified; N18.3 - Chronic kidney disease, stage 3 (moderate) Is this a current diagnosis for this admission?: Yes Plan: Today the BUN is 7 with a creatinine of 1.08. GFR is greater than 60. Acute kidney injury resolved. The patient in fact he is back in the normal range of renal function surpassing her "chronic "stage III kidney failure. (10) Hemothorax, left Is this a current diagnosis for this admission?: Yes Plan: There is still slightly blood-tinged drainage from the pleural cavity. The angela hemothorax has resolved. - Time Time Spent with patient: 15-24 minutes Medications reviewed and adjusted accordingly: Yes Anticipated Discharge Disposition: Home with Home Health Anticipated Discharge Timeframe: within 72 hours
[2020-06-22] MEDS: PATIROMER 8.4 GM SUSP PACKET PO SCH (19:02)
[2020-06-22] MEDS: MORPHINE SULFATE 10 MG/ML INJ IV PRN (20:02)
[2020-06-22] MEDS: ATORVASTATIN CALCIUM 20 MG TABLET PO SCH (21:16)
[2020-06-22] MEDS ORDERED: HYDRALAZINE HCL INJ/PF 20 MG/1 ML SDV IV PRN (21:18)
[2020-06-23] MEDS: ALBUTEROL SULFATE 0.083% NEB 2.5 MG/3 ML AMPUL NEB SCH ×4 (02:25→20:01)
[2020-06-23] MEDS ORDERED: FUROSEMIDE INJ/PF 20 MG/2 ML SDV IV PRN (05:00)
[2020-06-23] MEDS ORDERED: DIPHENHYDRAMINE HCL 25 MG CAPSULE PO PRN (05:00)
[2020-06-23] MEDS ORDERED: ACETAMINOPHEN 325 MG TABLET PO PRN (05:00)
[2020-06-23] MEDS: MORPHINE SULFATE 10 MG/ML INJ IV PRN ×3 (05:33→20:29)
[2020-06-23] MEDS: DRONEDARONE HYDROCHLORIDE 400 MG TABLET PO SCH ×2 (05:34→17:59)
[2020-06-23 06:41] LABS: HEMATOCRIT 23.1 % (36.0-47.0); MEAN CORPUSCULAR HEMOGLOBIN 27.6 pg (27.0-33.4); MEAN CORPUSCULAR HGB CONC 33.8 g/dL (32.0-36.0); MEAN CORPUSCULAR VOLUME 82 fl (80-97); PLATELET COUNT 243 10^3/uL (150-450); RED BLOOD COUNT 2.83 10^6/uL (3.72-5.28); RED CELL DISTRIBUTION WIDTH 17.9 % (11.5-14.0); WHITE BLOOD COUNT 8.4 10^3/uL (4.0-10.5)
[2020-06-23 06:43] LABS: ALBUMIN 1.8 g/dL (3.5-5.0); BLOOD UREA NITROGEN 6 mg/dL (7-20); CALCIUM 7.1 mg/dL (8.4-10.2); CARBON DIOXIDE 21 mmol/L (22-30); GLUCOSE 82 mg/dL (75-110); PHOSPHORUS 3.8 mg/dL (2.5-4.5); POTASSIUM 3.8 mmol/L (3.6-5.0)
[2020-06-23 06:46] LABS: HEMOGLOBIN 7.8 g/dL (12.0-15.5)
[2020-06-23 06:48] LABS: CHLORIDE 114 mmol/L (98-107)
[2020-06-23 06:50] LABS: ANION GAP 3 (5-19)
--- NOTE | 2020-06-23 08:26 | PDOC PROGRESS REPORT ---
Subjective Reason For Visit: MALIGNANT EFFUSION,METASTATIC MALIGNANCY,REQUIRES Physical Exam Vital Signs: Temp Pulse Resp BP Pulse Ox 98.8 F 70 15 129/58 H 94 06/23/20 03:29 06/23/20 07:39 06/23/20 07:39 06/23/20 03:29 06/23/20 07:39 Intake & Output 06/22/20 06/23/20 06/24/20 06:59 06:59 06:59 Intake Total 2571806 Output Total 2514 2018 Balance 58 -212 Weight 100.1 kg 100 kg Results Laboratory Results: 06/23/20 06:02 06/23/20 06:02 06/23/20 06/23/20 06:02 06:02 WBC 8.4 RBC 2.83 L Hgb 7.8 L Hct 23.1 L MCV 82 MCH 27.6 MCHC 33.8 RDW 17.9 H Plt Count 243 Sodium 138.1 Potassium 3.8 Chloride 114 H Carbon Dioxide 21 L Anion Gap 3 L BUN 6 L Creatinine 1.10 Est GFR ( Amer) 59 L Glucose 82 Calcium 7.1 L Phosphorus 3.8 Magnesium 1.4 L Albumin 1.8 L Impressions: Guidance Needle Placement CT 06/15/20 00:00 IMPRESSION: SUCCESSFUL PLACEMENT OF A 10 [place] LEFT SIDED CHEST TUBE USING CT GUIDANCE. Thoracentesis 06/15/20 14:50 IMPRESSION: SUCCESSFUL PLACEMENT OF A 10 [place] LEFT SIDED CHEST TUBE USING CT GUIDANCE. Guidance Fluoroscopy 06/17/20 00:00 IMPRESSION: Please see combined report for performance of procedure and radiologic supervision and interpretation. Chest X-Ray 06/22/20 00:00 IMPRESSION: 1. Stable pulmonary examination. 2. Lines and tubes as above. No pneumothorax. Assessment & Plan - Diagnosis (1) Malignant pleural effusion Is this a current diagnosis for this admission?: Yes Plan: Still continued, slightly less output at about 500 cc over the last 24 hours. But still enough to consider Pleurx catheter placement. May be happening today. (2) Cancer of left lung Qualifiers: Lung location: hilum of lung Qualified Code(s): C34.02 - Malignant neoplasm of left main bronchus Is this a current diagnosis for this admission?: Yes Plan: Hopeful treatment this week if possible. (3) Atrial fibrillation Qualifiers: Atrial fibrillation type: longstanding persistent Qualified Code(s): I48.11 - Longstanding persistent atrial fibrillation Is this a current diagnosis for this admission?: Yes Plan: Holding anticoagulation we may consider restarting after Pleurx placement. (4) Anemia Qualifiers: Anemia type: iron deficiency Iron deficiency anemia type: chronic blood loss Qualified Code(s): D50.0 - Iron deficiency anemia secondary to blood loss (chronic) Is this a current diagnosis for this admission?: Yes Plan: Globin last was 7.8, we will give 1 unit of packed red blood cell. - Time Time Spent with patient: 35 or more minutes
--- NOTE | 2020-06-23 10:21 | PDOC PROGRESS REPORT ---
Subjective Progress Note for:: 06/23/20 Subjective:: 74-year-old female with a left-sided malignant pleural effusion. The patient had a tube thoracostomy placed with a subsequent chemical pleurodesis. She continues to produce large amounts of pleural fluid from her left chest. At present, the patient denies significant chest pain, shortness of breath, fevers, chills, nausea, vomiting, dizziness, orthostasis. Reason For Visit: MALIGNANT EFFUSION,METASTATIC MALIGNANCY,REQUIRES Physical Exam Vital Signs: Temp Pulse Resp BP Pulse Ox 98.8 F 70 15 129/58 H 94 06/23/20 03:29 06/23/20 07:39 06/23/20 07:39 06/23/20 03:29 06/23/20 07:39 Intake & Output 06/22/20 06/23/20 06/24/20 06:59 06:59 06:59 Intake Total 2573 1807 Output Total 2515 2019 Balance 58 -212 Weight 100.1 kg 100 kg Exam: General appearance: PRESENT: no acute distress, cooperative Head exam: PRESENT: atraumatic, normocephalic Eye exam: PRESENT: EOMI, PERRLA. ABSENT: scleral icterus Mouth exam: PRESENT: neck supple Neck exam: ABSENT: meningismus, tenderness, thyromegaly, tracheal deviation Respiratory exam: PRESENT: unlabored, other - Left-sided tube thoracostomy was in place. Large amount of serous fluid present in the tubing.. ABSENT: tachypnea Cardiovascular exam: ABSENT: tachycardia GI/Abdominal exam: PRESENT: soft. ABSENT: tenderness Rectal exam: PRESENT: deferred Musculoskeletal exam: ABSENT: deformity Neurological exam: PRESENT: alert, awake Psychiatric exam: ABSENT: agitated, anxious, depressed Focused psych exam: ABSENT: delusional Skin exam: ABSENT: cyanosis, erythema, jaundice Results Laboratory Results: 06/23/20 06:02 06/23/20 06:02 06/23/20 06/23/20 06:02 06:02 WBC 8.4 RBC 2.83 L Hgb 7.8 L Hct 23.1 L MCV 82 MCH 27.6 MCHC 33.8 RDW 17.9 H Plt Count 243 Sodium 138.1 Potassium 3.8 Chloride 114 H Carbon Dioxide 21 L Anion Gap 3 L BUN 6 L Creatinine 1.10 Est GFR ( Amer) 59 L Glucose 82 Calcium 7.1 L Phosphorus 3.8 Magnesium 1.4 L Albumin 1.8 L Impressions: Guidance Needle Placement CT 06/15/20 00:00 IMPRESSION: SUCCESSFUL PLACEMENT OF A 10 [place] LEFT SIDED CHEST TUBE USING CT GUIDANCE. Thoracentesis 06/15/20 14:50 IMPRESSION: SUCCESSFUL PLACEMENT OF A 10 [place] LEFT SIDED CHEST TUBE USING CT GUIDANCE. Guidance Fluoroscopy 06/17/20 00:00 IMPRESSION: Please see combined report for performance of procedure and radiologic supervision and interpretation. Chest X-Ray 06/22/20 00:00 IMPRESSION: 1. Stable pulmonary examination. 2. Lines and tubes as above. No pneumothorax. Assessment & Plan - Diagnosis (1) Malignant pleural effusion Is this a current diagnosis for this admission?: Yes - Time Anticipated Discharge Disposition: unknown Anticipated Discharge Timeframe: unknown - Plan Summary Plan Summary: 74-year-old female status post chemical pleurodesis. This has failed. I will clamp her chest tube tomorrow, in order to allow pleural fluid to fill the thoracic space. Plan for Pleurx catheter placement tomorrow. The family has agreed to this. Risks/benefits discussed, informed consent obtained, and all questions answered.
[2020-06-23] MEDS: LISINOPRIL 10 MG TABLET PO SCH (13:39)
[2020-06-23] MEDS: METOPROLOL TARTRATE 50 MG TABLET PO SCH (13:39)
[2020-06-23] MEDS: MAGNESIUM OXIDE 400 MG TABLET PO SCH (13:41)
[2020-06-23] MEDS: MAGNESIUM SULFATE/D5W 1 GM/100 ML RTUPB IV SCH ×3 (13:41→17:58)
[2020-06-23] MEDS: FOLIC ACID 1 MG TABLET PO SCH (13:41)
[2020-06-23] MEDS: FAMOTIDINE 20 MG TABLET PO SCH ×2 (13:43→23:22)
[2020-06-23] MEDS: DOCUSATE SODIUM 100 MG CAPSULE PO SCH (13:43)
[2020-06-23] MEDS: POLYETHYLENE GLYCOL 3350 POWDER 17 GM/1 PACKET PO SCH (13:43)
[2020-06-23] MEDS ORDERED: MAGNESIUM SULFATE/D5W 1 GM/100 ML RTUPB IV ONE (15:28)
--- NOTE | 2020-06-23 16:20 | PDOC PROGRESS REPORT ---
Subjective Progress Note for:: 06/23/20 Subjective:: She appears comfortable. Denies pain or discomfort. Reason For Visit: MALIGNANT EFFUSION Physical Exam Vital Signs: Temp Pulse Resp BP Pulse Ox 99.0 F 75 16 127/53 H 97 06/23/20 12:16 06/23/20 14:09 06/23/20 14:09 06/23/20 12:16 06/23/20 14:09 Intake & Output 06/22/20 06/23/20 06/24/20 06:59 06:59 06:59 Intake Total 257 1807 360 Output Total 2512018 300 Balance 58 -212 60 Weight 100.1 kg 100 kg 100 kg General appearance: PRESENT: no acute distress Eye exam: ABSENT: scleral icterus Mouth exam: PRESENT: moist Neck exam: ABSENT: JVD Respiratory exam: PRESENT: clear to auscultation gwendolyn, other - chest tubes in place, draining Cardiovascular exam: PRESENT: irregular rhythm GI/Abdominal exam: PRESENT: normal bowel sounds, soft. ABSENT: tenderness Extremities exam: PRESENT: pedal edema. ABSENT: tenderness Neurological exam: PRESENT: alert Psychiatric exam: PRESENT: normal mood Skin exam: ABSENT: rash Results Laboratory Results: 06/23/20 06:02 06/23/20 06:02 06/23/20 06/23/20 06/23/20 06:02 06:02 11:05 WBC 8.4 RBC 2.83 L Hgb 7.8 L Hct 23.1 L MCV 82 MCH 27.6 MCHC 33.8 RDW 17.9 H Plt Count 243 Sodium 138.1 Potassium 3.8 Chloride 114 H Carbon Dioxide 21 L Anion Gap 3 L BUN 6 L Creatinine 1.10 Est GFR ( Amer) 59 L Glucose 82 Calcium 7.1 L Phosphorus 3.8 Magnesium 1.4 L Albumin 1.8 L Blood Type A POSITIVE Antibody Screen NEGATIVE Impressions: Guidance Needle Placement CT 06/15/20 00:00 IMPRESSION: SUCCESSFUL PLACEMENT OF A 10 LITHUANIAN LEFT SIDED CHEST TUBE USING CT GUIDANCE. Thoracentesis 06/15/20 14:50 IMPRESSION: SUCCESSFUL PLACEMENT OF A 10 LITHUANIAN LEFT SIDED CHEST TUBE USING CT GUIDANCE. Guidance Fluoroscopy 06/17/20 00:00 IMPRESSION: Please see combined report for performance of procedure and radiologic supervision and interpretation. Chest X-Ray 06/22/20 00:00 IMPRESSION: 1. Stable pulmonary examination. 2. Lines and tubes as above. No pneumothorax. 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 Dixon (Surgery) planning Pleur-X catheter placement tomorrow - Dr. Horton (oncology) planning to start chemotherapy as outpatient Hyperkalemia: resolved - HOLD [place] (K 3.8 today) and consider discontinuation if K remains stable now that her CrCl has normalized Persistent atrial fibrillation - stable - Continue dronedarone and metoprolol - anticoagulation on hold given decreasing hgb and Pleur-X placement tomorrow Essential (primary) hypertension - Blood pressure tends to be higher early in the morning as her medications are not given until 10:0) Anemia of Chronic Disease: exacerbated by hemothorax due to malignancy - transfuse when Hgb <8 (per oncology) - ferritin >200, no need for IV Iron at this time Pre-Renal DESTINY Hypovolemic Hyponatremia - resolved with IVF - Time Time Spent with patient: 35 or more minutes Anticipated Discharge Disposition: Home with Home Health Anticipated Discharge Timeframe: within 48 hours
[2020-06-23] MEDS: ATORVASTATIN CALCIUM 20 MG TABLET PO SCH (23:22)
[2020-06-24] MEDS: ALBUTEROL SULFATE 0.083% NEB 2.5 MG/3 ML AMPUL NEB SCH ×3 (02:02→14:20)
[2020-06-24 04:22] LABS: ABSOLUTE EOSINOPHILS # (AUTO) 0.4 10^3/uL (0.0-0.6); ABSOLUTE LYMPHOCYTES (AUTO) 1.6 10^3/uL (0.5-4.7); ABSOLUTE MONOCYTES (AUTO) 0.6 10^3/uL (0.1-1.4); ABSOLUTE NEUT (AUTO) 5.3 10^3/uL (1.7-8.2); BASOPHILS % (AUTO) 0.6 % (0-2); HEMATOCRIT 22.9 % (36.0-47.0); LYMPHOCYTES % (AUTO) 20.7 % (13-45); MEAN CORPUSCULAR HEMOGLOBIN 28.2 pg (27.0-33.4); MEAN CORPUSCULAR HGB CONC 34.1 g/dL (32.0-36.0); MEAN CORPUSCULAR VOLUME 83 fl (80-97); PLATELET COUNT 167 10^3/uL (150-450); RED BLOOD COUNT 2.77 10^6/uL (3.72-5.28); RED CELL DISTRIBUTION WIDTH 17.3 % (11.5-14.0); SEGMENTED NEUTROPHILS % (AUTO) 66.7 % (42-78); TOTAL CELLS COUNTED % (AUTO) 100 %
[2020-06-24 04:24] LABS: HEMOGLOBIN 7.8 g/dL (12.0-15.5)
[2020-06-24] MEDS: DRONEDARONE HYDROCHLORIDE 400 MG TABLET PO SCH (08:13)
--- NOTE | 2020-06-24 08:37 | PDOC PROGRESS REPORT ---
Subjective Progress Note for:: 06/24/20 Subjective:: Patient doing well this morning, with standing getting changed. Plan for Pleurx catheter placement today. Discussed with hospitalist team as well, once Pleurx catheter placed today, potential discharge thereafter but we need to make sure home health is in placement, she may need some supplies before they are able to get started. Reason For Visit: MALIGNANT EFFUSION,METASTATIC MALIGNANCY,REQUIRES Physical Exam Vital Signs: Temp Pulse Resp BP Pulse Ox 98.7 F 75 16 147/72 H 99 06/24/20 01:27 06/24/20 07:00 06/24/20 01:27 06/24/20 01:27 06/24/20 01:27 Intake & Output 06/23/20 06/24/20 06/25/20 06:59 06:59 06:59 Intake Total 1807 1360 Output Total 2019 325 Balance -212 1035 Weight 100 kg 101 kg General appearance: PRESENT: no acute distress, well-developed, well-nourished Head exam: PRESENT: atraumatic, normocephalic Eye exam: PRESENT: conjunctiva pink, EOMI, PERRLA. ABSENT: scleral icterus Ear exam: PRESENT: normal external ear exam Mouth exam: PRESENT: moist, tongue midline Neck exam: ABSENT: carotid bruit, JVD, lymphadenopathy, thyromegaly Respiratory exam: PRESENT: clear to auscultation gwendolyn. ABSENT: rales, rhonchi, wheezes Cardiovascular exam: PRESENT: RRR. ABSENT: diastolic murmur, rubs, systolic murmur Pulses: PRESENT: normal dorsalis pedis pul Vascular exam: PRESENT: normal capillary refill GI/Abdominal exam: PRESENT: normal bowel sounds, soft. ABSENT: distended, guarding, mass, organolmegaly, rebound, tenderness Rectal exam: PRESENT: deferred Extremities exam: PRESENT: full ROM. ABSENT: calf tenderness, clubbing, pedal edema Neurological exam: PRESENT: alert, awake, oriented to person, oriented to place, oriented to time, oriented to situation, CN II-XII grossly intact. ABSENT: motor sensory deficit Psychiatric exam: PRESENT: appropriate affect, normal mood. ABSENT: homicidal ideation, suicidal ideation Skin exam: PRESENT: dry, intact, warm. ABSENT: cyanosis, rash Results Laboratory Results: 06/24/20 03:30 06/23/20 06:02 06/23/20 06/24/20 11:05 03:30 WBC 8.0 RBC 2.77 L Hgb 7.8 L Hct 22.9 L MCV 83 MCH 28.2 MCHC 34.1 RDW 17.3 H Plt Count 167 Seg Neutrophils % 66.7 Blood Type A POSITIVE Antibody Screen NEGATIVE Impressions: Guidance Needle Placement CT 06/15/20 00:00 IMPRESSION: SUCCESSFUL PLACEMENT OF A 10 MONTSERRATIAN LEFT SIDED CHEST TUBE USING CT GUIDANCE. Thoracentesis 06/15/20 14:50 IMPRESSION: SUCCESSFUL PLACEMENT OF A 10 MONTSERRATIAN LEFT SIDED CHEST TUBE USING CT GUIDANCE. Guidance Fluoroscopy 06/17/20 00:00 IMPRESSION: Please see combined report for performance of procedure and radiologic supervision and interpretation. Chest X-Ray 06/22/20 00:00 IMPRESSION: 1. Stable pulmonary examination. 2. Lines and tubes as above. No pneumothorax. Assessment & Plan - Diagnosis (1) Malignant pleural effusion Is this a current diagnosis for this admission?: Yes Plan: Plan for Pleurx catheter placement. (2) Cancer of left lung Qualifiers: Lung location: hilum of lung Qualified Code(s): C34.02 - Malignant neoplasm of left main bronchus Is this a current diagnosis for this admission?: Yes Plan: Stage IV lung cancer, chemotherapy set up to initiate on Monday. (3) Atrial fibrillation Qualifiers: Atrial fibrillation type: longstanding persistent Qualified Code(s): I48.11 - Longstanding persistent atrial fibrillation Is this a current diagnosis for this admission?: Yes Plan: Could potentially restart anticoagulation after Pleurx catheter placement but it would be okay to wait some time as well. (4) Anemia Qualifiers: Anemia type: iron deficiency Iron deficiency anemia type: chronic blood los s Qualified Code(s): D50.0 - Iron deficiency anemia secondary to blood loss (chronic) Is this a current diagnosis for this admission?: Yes Plan: Hemoglobin stable posttransfusion not much improvement but we will hold on further transfusion until next week. - Time Time Spent with patient: 35 or more minutes
[2020-06-24] MEDS: DOCUSATE SODIUM 100 MG CAPSULE PO SCH (11:18)
[2020-06-24] MEDS: METOPROLOL TARTRATE 50 MG TABLET PO SCH (11:18)
[2020-06-24] MEDS: FOLIC ACID 1 MG TABLET PO SCH (11:18)
[2020-06-24] MEDS: FAMOTIDINE 20 MG TABLET PO SCH (11:19)
[2020-06-24] MEDS: MAGNESIUM OXIDE 400 MG TABLET PO SCH (11:19)
[2020-06-24] MEDS: POLYETHYLENE GLYCOL 3350 POWDER 17 GM/1 PACKET PO SCH (11:19)
[2020-06-24] MEDS: LISINOPRIL 10 MG TABLET PO SCH (11:19)
[2020-06-24] MEDS ORDERED: FENTANYL CITRATE INJ/PF 100 MCG/2 ML AMPUL ONE (12:34)
[2020-06-24] MEDS ORDERED: PROPOFOL INJ 200 MG/20 ML VIAL IV ONE (12:35)
[2020-06-24] MEDS ORDERED: MIDAZOLAM 2 MG/2 ML INJ ONE (12:35)
[2020-06-24] MEDS ORDERED: CEFAZOLIN INJ 1 GM VIAL ONE (14:16)
[2020-06-24] MEDS ORDERED: BUPIVACAINE HCL 0.25 % INJ/PF (2.5 MG/1 ML) 30 ML VIAL ONE (14:16)
[2020-06-24] MEDS ORDERED: LIDOCAINE 1% INJ-PF (10 MG/ML) 30 ML SDV ONE (14:16)
--- NOTE | 2020-06-24 15:34 | Operative Report ---
Nonrecallable Operative Report DATE OF SURGERY: 06/24/20 PREOPERATIVE DIAGNOSIS: malignant left pleural effusion POSTOPERATIVE DIAGNOSIS: same OPERATION: 1. ultrasound guided placement of percutanous left pleural drainage catheter. 2. Removal of left sided28 portuguese tube thoracostomy SURGEON: YUSUF REA ANESTHESIA: LMAC TISSUE REMOVED OR ALTERED: 450cc of pleural effusion COMPLICATIONS: none apparent ESTIMATED BLOOD LOSS: minimal PROCEDURE: Right lateral decubitus position. She was sat up to an angle of approximately 45 degrees. The ultrasound was then used to identify a large amount of pleural fluid in the left thoracic cavity. Under direct ultrasonic guidance, a needle was inserted percutaneously into the pleural fluid. Next, a guidewire was inserted into the thoracic cavity. After this was completed, a separate incision was made inferior laterally to the wire. The catheter was then tunnele d from the lateral incision to the needle insertion site. Next, the dilators were used over the wire, to dilate the tract. A breakaway sheath was inserted over the wire. The catheter was then inserted into the breakaway sheath. The sheath was cracked and pulled away, leaving the catheter within the thoracic cavity. The Pleurx catheter was attached to low suction, and 450 cc was easily removed from the thoracic cavity. The Pleurx catheter was sutured to the skin using 2-0 nylon suture. A Biopatch and occlusive dressing were placed. Next, the 28 Wallisian chest tube and pigtail catheter were removed. The chest tube insertion site was closed using 2-0 nylon suture in simple interrupted fashion. Dressings were placed, and the procedure was concluded. All sponge, instrument, and needle counts were correct x2. Condition: Fair.
--- NOTE | 2020-06-24 16:23 | RADIOLOGY REPORT (SQ) ---
EXAM DESCRIPTION: CHEST SINGLE VIEW IMAGES COMPLETED DATE/TIME: 06/24/2020 3:49 pm REASON FOR STUDY: pleural catheter insertion. 28 fr chest tube remov COMPARISON: AP view of the chest from 06/22/2020. EXAM PARAMETERS: NUMBER OF VIEWS: One view. TECHNIQUE: An AP view of the chest was obtained. RADIATION DOSE: NA LIMITATIONS: None. FINDINGS: LUNGS AND PLEURA: The left-sided large-bore chest tube and pigtail pleural drainage cathet er have been removed and in their place a right basilar chest tube has been placed. The appearance o f the lungs and pleura is otherwise unchanged. MEDIASTINUM AND HILAR STRUCTURES: Stable mediastinal and hilar contours. HEART AND VASCULAR STRUCTURES: Stable enlarged cardiac silhouette. BONES: No acute findings. HARDWARE: Intact left IJ approach single-lumen port. OTHER: No other finding. IMPRESSION: The left-sided large-bore chest tube and pigtail pleural drainage catheter have been rem glo and in their place a right basilar chest tube has been placed. The radiographic appearance of th e chest is otherwise unchanged. TECHNICAL DOCUMENTATION: JOB ID: [id number] 2010 [employer]- All Rights Reserved Reading location - IP/workstation name: [email or web address]
--- NOTE | 2020-06-24 17:10 | PDOC DISCHARGE SUMMARY ---
Impression - Admit/DC Date/PCP Admission Date/Primary Care Provider: 06/16/20 12:39 BUTCH GOODRICH MD Discharge Date: 06/24/20 - Discharge Diagnosis (1) Acute renal failure superimposed on stage 3 chronic kidney disease Is this a current diagnosis for this admission?: Yes (2) Adenocarcinoma, lung Is this a current diagnosis for this admission?: Yes (3) Anemia Is this a current diagnosis for this admission?: Yes (4) Atrial fibrillation Is this a current diagnosis for this admission?: Yes (5) Cancer of left lung Is this a current diagnosis for this admission?: Yes (6) Chronic anticoagulation Is this a current diagnosis for this admission?: Yes (7) Hemothorax, left Is this a current diagnosis for this admission?: Yes (8) Hyperkalemia Is this a current diagnosis for this admission?: Yes (9) Hypertension Is this a current diagnosis for this admission?: Yes (10) Hypocalcemia Is this a current diagnosis for this admission?: Yes (11) Malignant pleural effusion Is this a current diagnosis for this admission?: Yes - Assessment Summary: Metastatic Left Lung Adenocarcinoma complicated by malignant left pleural effusion s/p tube thoracostomy and chemical pleurodesis - Dr. Dixon (Surgery) placed Pleur-X catheter on 06/24/2020, and patient/family received teaching/supplies prior to discharge. - Dr. Goodrich (oncology) is planning to start chemotherapy as outpatient on Monday. - Home Health will follow Pleur-X and continue patient/family education going forward. Pre-Renal DESTINY complicated by Hyperkalemia and Hypovolemic Hyponatremia: resolved with IVF hydration. Persistent atrial fibrillation: stable on home dronedarone and metoprolol. Eliquis was HELD given anemia and ongoing blood loss due to malignant pleural effusion. Her CBC will be rechecked by oncology as outpatient, and when it stabilizes, anticoagulation should be restarted at that time. Anemia of Chronic Disease + Acute Blood Loss Anemia: her chronic anemia was acutely exacerbated by hemothorax due to malignancy and anticoagulation. She required several transfusions during this admission. Her ferritin was >200, so there was no need for IV Iron. Her CBC will be rechecked in 2 days at her next oncology appointment. - Additional Information Resuscitation Status: Full Code Discharge Diet: Regular Discharge Activity: Activity As Tolerated Referrals: BUTCH GOODRICH MD [Primary Care Provider] - 06/26/20 8:30 am Home Medications: Rosuvastatin Calcium [Crestor 20 mg Tablet] 20 mg PO DAILY #90 tablet 03/17/14 Dronedarone Hydrochloride [Multaq 400 mg Tablet] 400 mg PO BID 06/15/20 Folic Acid [Folvite 1 mg Tablet] 1 mg PO DAILY 06/15/20 Lisinopril [Prinivil] 20 mg PO DAILY 06/15/20 Magnesium Oxide [Magnesium] 400 mg PO DAILY 06/15/20 Metoprolol Tartrate [Lopressor] 75 mg PO DAILY 06/15/20 History of Present Illiness History of Present Illness: ALETHEA CRANE is a 74 year old female Physical Exam Vital Signs: Temp Pulse Resp BP Pulse Ox 98.8 F 84 18 147/70 H 94 06/24/20 11:14 06/24/20 11:14 06/24/20 11:14 06/24/20 11:14 06/24/20 11:14 Intake & Output 06/23/20 06/24/20 06/25/20 06:59 06:59 06:59 Intake Total 1807 1360 700 Output Total 2019 325 10 Balance -212 1035 690 Weight 100 kg 101 kg Results Laboratory Results: WBC 8.0 10^3/uL (4.0-10.5) 06/24/20 03:30 RBC 2.77 10^6/uL (3.72-5.28) L 06/24/20 03:30 Hgb 7.8 g/dL (12.0-15.5) L 06/24/20 03:30 Hct 22.9 % (36.0-47.0) L 06/24/20 03:30 MCV 83 fl (80-97) 06/24/20 03:30 MCH 28.2 pg (27.0-33.4) 06/24/20 03:30 MCHC 34.1 g/dL (32.0-36.0) 06/24/20 03:30 RDW 17.3 % (11.5-14.0) H 06/24/20 03:30 Plt Count 167 10^3/uL (150-450) 06/24/20 03:30 Lymph % (Auto) 20.7 % (13-45) 06/24/20 03:30 Smyth % (Auto) 7.0 % (3-13) 06/24/20 03:30 Eos % (Auto) 5.0 % (0-6) 06/24/20 03:30 Baso % (Auto) 0.6 % (0-2) 06/24/20 03:30 Reticulocyte # 0.057 10^6/uL (0.028-0.122) 06/16/20 03:51 Absolute Neuts (auto) 5.3 10^3/uL (1.7-8.2) 06/24/20 03:30 Absolute Lymphs (auto) 1.6 10^3/uL (0.5-4.7) 06/24/20 03:30 Absolute Monos (auto) 0.6 10^3/uL (0.1-1.4) 06/24/20 03:30 Absolute Eos (auto) 0.4 10^3/uL (0.0-0.6) 06/24/20 03:30 Absolute Basos (auto) 0.0 10^3/uL (0.0-0.2) 06/24/20 03:30 Seg Neutrophils % 66.7 % (42-78) 06/24/20 03:30 Retic Count (auto) 1.86 % (0.66-2.85) 06/16/20 03:51 PT 18.6 SEC (11.4-15.4) H 06/17/20 03:31 INR 1.54 06/17/20 03:31 Sodium 138.1 mmol/L (137-145) 06/23/20 06:02 Potassium 3.8 mmol/L (3.6-5.0) 06/23/20 06:02 Chloride 114 mmol/L (98-107) H 06/23/20 06:02 Carbon Dioxide 21 mmol/L (22-30) L 06/23/20 06:02 Anion Gap 3 (5-19) L 06/23/20 06:02 BUN 6 mg/dL (7-20) L 06/23/20 06:02 Creatinine 1.10 mg/dL (0.52-1.25) 06/23/20 06:02 Est GFR ( Amer) 59 (>60) L 06/23/20 06:02 Est GFR (MDRD) Non-Af 49 (>60) L 06/23/20 06:02 Glucose 82 mg/dL (75-110) 06/23/20 06:02 Calcium 7.1 mg/dL (8.4-10.2) L 06/23/20 06:02 Phosphorus 3.8 mg/dL (2.5-4.5) 06/23/20 06:02 Magnesium 1.4 mg/dL (1.6-2.3) L 06/23/20 06:02 Iron < 10.1 ug/dL (37-170) L 06/16/20 03:51 TIBC 226 ug/dL (250-450) L 06/16/20 03:51 Iron Saturation UNABLE TO CALCULATE % (15% - 50%) 06/16/20 03:51 Ferritin 234.00 ng/mL (11.1-264.0) 06/16/20 03:51 Total Bilirubin 0.4 mg/dL (0.2-1.3) 06/21/20 05:50 Direct Bilirubin 0.2 mg/dL (0.0-0.4) 06/21/20 05:50 Neonat Total Bilirubin Not Reportable 06/21/20 05:50 Neonat Direct Bilirubin Not Reportable 06/21/20 05:50 Neonat Indirect Bili Not Reportable 06/21/20 05:50 AST 45 U/L (14-36) H 06/21/20 05:50 ALT 48 U/L (<35) H 06/21/20 05:50 Alkaline Phosphatase 45 U/L (38-126) 06/21/20 05:50 Total Protein 4.3 g/dL (6.3-8.2) L 06/21/20 05:50 Albumin 1.8 g/dL (3.5-5.0) L 06/23/20 06:02 Vitamin B12 > 1000.0 pg/mL (239-931) H 06/16/20 03:51 Folate 14.50 ng/mL (>2.76) 06/16/20 03:51 Urine Color YELLOW 06/15/20 18:40 Urine Appearance SLIGHTLY-CLOUDY 06/15/20 18:40 Urine pH 5.0 (5.0-9.0) 06/15/20 18:40 Ur Specific [place] 1.038 06/15/20 18:40 Urine Protein NEGATIVE mg/dL (NEGATIVE) 06/15/20 18:40 Urine Glucose (UA) NEGATIVE mg/dL (NEGATIVE) 06/15/20 18:40 Urine Ketones NEGATIVE mg/dL (NEGATIVE) 06/15/20 18:40 Urine Blood SMALL (NEGATIVE) H 06/15/20 18:40 Urine Nitrite NEGATIVE (NEGATIVE) 06/15/20 18:40 Urine Bilirubin NEGATIVE (NEGATIVE) 06/15/20 18:40 Urine Urobilinogen NEGATIVE mg/dL (<2.0) 06/15/20 18:40 Ur Leukocyte Esterase SMALL (NEGATIVE) H 06/15/20 18:40 Urine WBC (Auto) 22 /HPF 06/15/20 18:40 Urine RBC (Auto) 2 /HPF 06/15/20 18:40 Urine Bacteria (Auto) TRACE /HPF 06/15/20 18:40 Squamous Epi Cells Auto 4 /HPF 06/15/20 18:40 Urine Mucus (Auto) RARE /LPF 06/15/20 18:40 Urine Ascorbic Acid NEGATIVE (NEGATIVE) 06/15/20 18:40 SARS-CoV-2 (PCR) NEGATIVE (NEGATIVE) 06/17/20 13:05 Blood Type A POSITIVE 06/23/20 11:05 Blood Type Confirm A POSITIVE 06/16/20 10:45 Antibody Screen NEGATIVE 06/23/20 11:05 Crossmatch See Detail 06/23/20 11:05 Impressions: Chest X-Ray 06/15/20 00:00 IMPRESSION: New small bore left basilar chest tube. No appreciable pneumothorax. Minimally improved aeration at the left lung apex with residual large effusion. Chest X-Ray 06/15/20 00:00 IMPRESSION: Left basilar chest tube with moderate left hydropneumothorax, stable. Right lung remains clear. Guidance Needle Placement CT 06/15/20 00:00 IMPRESSION: SUCCESSFUL PLACEMENT OF A 10 POLISH LEFT SIDED CHEST TUBE USING CT GUIDANCE. Thoracentesis 06/15/20 14:50 IMPRESSION: SUCCESSFUL PLACEMENT OF A 10 POLISH LEFT SIDED CHEST TUBE USING CT GUIDANCE. Chest X-Ray 06/15/20 17:45 IMPRESSION: Continued improved aeration of the left lung apex post chest tube placement. No appreciable pneumothorax. Chest X-Ray 06/16/20 06:00 IMPRESSION: STABLE LEFT CHEST TUBE. DECREASE IN THE LEFT PLEURAL EFFUSION. NO PNEUMOTHORAX. Chest X-Ray 06/17/20 00:00 IMPRESSION: Two spot fluoroscopic images show placement of left chest port with catheter tip in the distal left brachiocephalic vein. Guidance Fluoroscopy 06/17/20 00:00 IMPRESSION: Please see combined report for performance of procedure and radiologic supervision and interpretation. Chest X-Ray 06/22/20 00:00 IMPRESSION: 1. Stable pulmonary examination. 2. Lines and tubes as above. No pneumothorax. Chest X-Ray 06/24/20 00:00 IMPRESSION: The left-sided large-bore chest tube and pigtail pleural drainage catheter have been removed and in their place a right basilar chest tube has been placed. The radiographic appearance of the chest is otherwise unchanged. Stroke Is this a Stroke Patient?: No Acute Heart Failure Is this a Heart Failure Patient?: No
[2020-06-24 17:30] VITALS: BP 112/60
== END 2020-06-24 18:09 | disposition home health service (06) | DRG 181 ==
LOC: ER 13:32 → INTOOBSV 18:27 → EH 18:27 → 5 21:46 → OBSVTOIN 06-16 12:39
PROVIDERS: ADMIT Internal Medicine; ATTEND Hospitalist
PROC: 0W9B30Z Drainage of Left Pleural Cavity with Drainage Device, Percutaneous Approach (ICD-10-PCS; 2020-06-15)
PROC: 0W9B3ZX Drainage of Left Pleural Cavity, Percutaneous Approach, Diagnostic (ICD-10-PCS; 2020-06-15)
PROC: 3E0L3GC Introduction of Other Therapeutic Substance into Pleural Cavity, Percutaneous Approach (ICD-10-PCS; 2020-06-17)
PROC: 02HV33Z Insertion of Infusion Device into Superior Vena Cava, Percutaneous Approach (ICD-10-PCS; 2020-06-17)
PROC: B548ZZA Ultrasonography of Superior Vena Cava, Guidance (ICD-10-PCS; 2020-06-17)
PROC: 0JH63WZ Insertion of Totally Implantable Vascular Access Device into Chest Subcutaneous Tissue and Fascia, Percutaneous Approach (ICD-10-PCS; 2020-06-17)
PROC: 0W9B00Z Drainage of Left Pleural Cavity with Drainage Device, Open Approach (ICD-10-PCS; principal; 2020-06-24 12:45)
DX: C34.02 Malignant neoplasm of left main bronchus (principal); N17.9 Acute kidney failure, unspecified; J94.2 Hemothorax; J91.0 Malignant pleural effusion; I48.11 Longstanding persistent atrial fibrillation; I12.9 Hypertensive chronic kidney disease with stage 1 through stage 4 chronic kidney disease, or unspecified chronic kidney disease; D63.1 Anemia in chronic kidney disease; N18.3 Chronic kidney disease, stage 3 (moderate); E87.5 Hyperkalemia; I25.10 Atherosclerotic heart disease of native coronary artery without angina pectoris; E78.5 Hyperlipidemia, unspecified; E66.9 Obesity, unspecified; K21.9 Gastro-esophageal reflux disease without esophagitis; E83.51 Hypocalcemia; D50.0 Iron deficiency anemia secondary to blood loss (chronic); F32.9 Major depressive disorder, single episode, unspecified; D63.0 Anemia in neoplastic disease; Z79.01 Long term (current) use of anticoagulants; Z79.899 Other long term (current) drug therapy
CPT/HCPCS: 00520; 00540; 32551; 36415; 36430; 71045; 71260; 74177; 77001; 77012; 80048; 80053; 80069; 81001; 82607; 82728; 82746; 83540; 83550; 83735; 85025; 85027; 85045; 85610; 86850; 86900; 86901; 86920; 87635; 94640; 99285; C1729; C1788; C1894; C9803; G0378; J0690; J1642; J1756; J2250; J2270; J2405; J2550; J2704; J3010; J3475; J3490; J7030; J7120; J7613; P9016

== ENCOUNTER → 2020-06-15 | Outpatient (CLI) | payer MEDICARE, OTHER ==
--- NOTE | 2020-06-15 14:05 | RADIOLOGY REPORT (SQ) ---
EXAM DESCRIPTION: CT CHEST WITH; CT ABD/PELVIS WITH IV ONLY IMAGES COMPLETED DATE/TIME: 06/15/2020 1:04 pm REASON FOR STUDY: C34.32 MALIGNANT NEOPLASM OF LOWER LOBE, LEFT BRONCHUS OR LUNG C34.32 MALIGNANT N EOPLASM OF LOWER LOBE, LEFT BRONCHUS OR NISA CONTRAST TYPE AND DOSE: contrast/concentration: Isovue 350.00 mmol/ml; Total Contrast Delivered: 80. 0 ml; Total Saline Delivered: 55.0 ml RENAL FUNCTION: Not available at time of dictation. COMPARISON: None. TECHNIQUE: CT scan of the chest performed using helical scanning technique with dynamic intravenous contrast injection. Images reviewed with lung, soft tissue and bone windows. Reconstructed coronal a nd sagittal MPR images reviewed. All images stored on PACS. All CT scanners at this facility use dose modulation, iterative reconstruction, and/or weight based d osing when appropriate to reduce radiation dose to as low as reasonably achievable (ALARA). [facility]: Dose Right [facility]: CareDose [facility]: Dose Right [facility]: Teradose 4D [facility]: K Spine RADIATION DOSE: CT Rad equipment meets quality standard of care and radiation dose reduction techniq ues were employed. CTDIvol: 12.2 - 17.9 mGy. DLP: 1917 mGy-cm. . LIMITATIONS: None. FINDINGS: AXILLAE: No adenopathy. Possible filling defect in the right axillary vein. Clinical cor relation is needed. If clinically indicated further evaluation with ultrasound is recommended. CHEST WALL: No masses. No subcutaneous air. LUNGS: Complete collapse of the left upper and lower lobes. Heterogeneous attenuation in the left lo wer lobe. Central obstructing mass cannot be excluded. PLEURA: Large left pleural effusion with mediastinal shift to the right. There is a small defect in the posterior aspect of the right hemidiaphragm resulting in pleural fluid extending posterior to the spleen. THYROID: No masses or significant asymmetry. HILAR AND MEDIASTINAL STRUCTURES: 1.7 cm right peritracheal node. AORTA AND GREAT VESSELS: No aneurysm. No dissection. PULMONARY ARTERIES: No identified pulmonary emboli. Study not optimized for the pulmonary arteries. HEART: No pericardial effusion. HARDWARE AND LIFELINES: None. BONES: No significant finding. OTHER: No other significant finding. IMPRESSION: Large left pleural effusion with complete collapse of the left upper and lower lobes. C entral obstructing mass is suspected. 1.7 cm right peritracheal node. COMPARISON: None. RADIATION DOSE: CT Rad equipment meets quality standard of care and radiation dose reduction techniq ues were employed. CTDIvol: 12.2 - 17.9 mGy. DLP: 1917 mGy-cm. mGy. TECHNIQUE: CT scan of the abdomen and pelvis performed with intravenous and oral contrast using desiree tessa scanning technique with dynamic intravenous contrast injection. Images reviewed with lung, soft tissue and bone windows. Reconstructed coronal and sagittal MPR images reviewed. Delayed images for evaluation of the urinary system also acquired and evaluated. All images stored on PACS. All CT scanners at this facility use dose modulation, iterative reconstruction, and/or weight based d osing when appropriate to reduce radiation dose to as low as reasonably achievable (ALARA). [facility]: Dose Right [facility]: SureCare [facility]: Dose Right [facility]: Teradose 4D [facility]: K Spine FINDINGS: LIVER: Normal size. No masses. No dilated ducts. SPLEEN: Normal size. No focal lesions. PANCREAS: No masses. No significant calcifications. No adjacent inflammation or peripancreatic flui d collections. Pancreatic duct not dilated. GALLBLADDER: No identified stones by CT criteria. No inflammatory changes to suggest cholecystitis. ADRENAL GLANDS: No significant masses or asymmetry. RIGHT KIDNEY AND URETER: No solid masses. No significant calcifications. No hydronephrosis or hyd roureter. LEFT KIDNEY AND URETER: No solid masses. No significant calcifications. No hydronephrosis or hydr oureter. AORTA AND VESSELS: No aneurysm. No dissection. Renal arteries, SMA, celiac without stenosis. RETROPERITONEUM: No retroperitoneal adenopathy, hemorrhage or masses. LARGE AND SMALL BOWEL: No dilatation. No masses. No wall thickening. APPENDIX: Normal. ABDOMINAL WALL: Umbilical hernia containing omental fat only. PERITONEAL CAVITY: No free air. No free fluid. No peritoneal implants or masses. PELVIS: No mass or free fluid. Normal bladder. BONES: No significant or acute findings. OTHER: Soft tissue attenuation in the pelvis along the neurovascular bundle appears to be related to the broad ligament. No focal adenopathy. IMPRESSION: No evidence of metastatic disease in the abdomen or pelvis. TECHNICAL DOCUMENTATION: JOB ID: [id number] Quality ID # 436: Final reports with documentation of one or more dose reduction techniques (e.g., Au tomated exposure control, adjustment of the mA and/or kV according to patient size, use of iterative reconstruction technique) 2010 [employer]- All Rights Reserved Reading location - IP/workstation name: [email or web address]
--- NOTE | 2020-06-15 14:05 | RADIOLOGY REPORT (SQ) ---
EXAM DESCRIPTION: CT CHEST WITH; CT ABD/PELVIS WITH IV ONLY IMAGES COMPLETED DATE/TIME: 06/15/2020 1:04 pm REASON FOR STUDY: C34.32 MALIGNANT NEOPLASM OF LOWER LOBE, LEFT BRONCHUS OR LUNG C34.32 MALIGNANT N EOPLASM OF LOWER LOBE, LEFT BRONCHUS OR NISA CONTRAST TYPE AND DOSE: contrast/concentration: Isovue 350.00 mmol/ml; Total Contrast Delivered: 80. 0 ml; Total Saline Delivered: 55.0 ml RENAL FUNCTION: Not available at time of dictation. COMPARISON: None. TECHNIQUE: CT scan of the chest performed using helical scanning technique with dynamic intravenous contrast injection. Images reviewed with lung, soft tissue and bone windows. Reconstructed coronal a nd sagittal MPR images reviewed. All images stored on PACS. All CT scanners at this facility use dose modulation, iterative reconstruction, and/or weight based d osing when appropriate to reduce radiation dose to as low as reasonably achievable (ALARA). [facility]: Dose Right [facility]: CareDose [facility]: Dose Right [facility]: Teradose 4D [facility]: [employer] RADIATION DOSE: CT Rad equipment meets quality standard of care and radiation dose reduction techniq ues were employed. CTDIvol: 12.2 - 17.9 mGy. DLP: 1917 mGy-cm. . LIMITATIONS: None. FINDINGS: AXILLAE: No adenopathy. Possible filling defect in the right axillary vein. Clinical cor relation is needed. If clinically indicated further evaluation with ultrasound is recommended. CHEST WALL: No masses. No subcutaneous air. LUNGS: Complete collapse of the left upper and lower lobes. Heterogeneous attenuation in the left lo wer lobe. Central obstructing mass cannot be excluded. PLEURA: Large left pleural effusion with mediastinal shift to the right. There is a small defect in the posterior aspect of the right hemidiaphragm resulting in pleural fluid extending posterior to the spleen. THYROID: No masses or significant asymmetry. HILAR AND MEDIASTINAL STRUCTURES: 1.7 cm right peritracheal node. AORTA AND GREAT VESSELS: No aneurysm. No dissection. PULMONARY ARTERIES: No identified pulmonary emboli. Study not optimized for the pulmonary arteries. HEART: No pericardial effusion. HARDWARE AND LIFELINES: None. BONES: No significant finding. OTHER: No other significant finding. IMPRESSION: Large left pleural effusion with complete collapse of the left upper and lower lobes. C entral obstructing mass is suspected. 1.7 cm right peritracheal node. COMPARISON: None. RADIATION DOSE: CT Rad equipment meets quality standard of care and radiation dose reduction techniq ues were employed. CTDIvol: 12.2 - 17.9 mGy. DLP: 1917 mGy-cm. mGy. TECHNIQUE: CT scan of the abdomen and pelvis performed with intravenous and oral contrast using desiree tessa scanning technique with dynamic intravenous contrast injection. Images reviewed with lung, soft tissue and bone windows. Reconstructed coronal and sagittal MPR images reviewed. Delayed images for evaluation of the urinary system also acquired and evaluated. All images stored on PACS. All CT scanners at this facility use dose modulation, iterative reconstruction, and/or weight based d osing when appropriate to reduce radiation dose to as low as reasonably achievable (ALARA). [facility]: Dose Right [facility]: SureCare [facility]: Dose Right [facility]: Teradose 4D [facility]: [employer] FINDINGS: LIVER: Normal size. No masses. No dilated ducts. SPLEEN: Normal size. No focal lesions. PANCREAS: No masses. No significant calcifications. No adjacent inflammation or peripancreatic flui d collections. Pancreatic duct not dilated. GALLBLADDER: No identified stones by CT criteria. No inflammatory changes to suggest cholecystitis. ADRENAL GLANDS: No significant masses or asymmetry. RIGHT KIDNEY AND URETER: No solid masses. No significant calcifications. No hydronephrosis or hyd roureter. LEFT KIDNEY AND URETER: No solid masses. No significant calcifications. No hydronephrosis or hydr oureter. AORTA AND VESSELS: No aneurysm. No dissection. Renal arteries, SMA, celiac without stenosis. RETROPERITONEUM: No retroperitoneal adenopathy, hemorrhage or masses. LARGE AND SMALL BOWEL: No dilatation. No masses. No wall thickening. APPENDIX: Normal. ABDOMINAL WALL: Umbilical hernia containing omental fat only. PERITONEAL CAVITY: No free air. No free fluid. No peritoneal implants or masses. PELVIS: No mass or free fluid. Normal bladder. BONES: No significant or acute findings. OTHER: Soft tissue attenuation in the pelvis along the neurovascular bundle appears to be related to the broad ligament. No focal adenopathy. IMPRESSION: No evidence of metastatic disease in the abdomen or pelvis. TECHNICAL DOCUMENTATION: JOB ID: [id number] Quality ID # 436: Final reports with documentation of one or more dose reduction techniques (e.g., Au tomated exposure control, adjustment of the mA and/or kV according to patient size, use of iterative reconstruction technique) 2010 [employer]- All Rights Reserved Reading location - IP/workstation name: [email or web address]
== END ==
LOC: RAD 12:33
PROVIDERS: ATTEND Internal Medicine
DX: C34.32 Malignant neoplasm of lower lobe, left bronchus or lung (principal); J90 Pleural effusion, not elsewhere classified
CPT/HCPCS: 71260; 74177

== ENCOUNTER → 2020-07-06 | Outpatient (CLI) | payer MEDICARE, OTHER ==
[2020-07-06 10:46] LABS: HEMATOCRIT 25.4 % (36.0-47.0); HEMOGLOBIN 8.8 g/dL (12.0-15.5); MEAN CORPUSCULAR HEMOGLOBIN 27.8 pg (27.0-33.4); MEAN CORPUSCULAR HGB CONC 34.6 g/dL (32.0-36.0); MEAN CORPUSCULAR VOLUME 80 fl (80-97); RED BLOOD COUNT 3.16 10^6/uL (3.72-5.28); RED CELL DISTRIBUTION WIDTH 16.4 % (11.5-14.0); WHITE BLOOD COUNT 2.4 10^3/uL (4.0-10.5)
[2020-07-06 10:59] LABS: APPEARANCE,URINE CLEAR; BILIRUBIN,URINE NEGATIVE (NEGATIVE); COLOR,URINE YELLOW; GLUCOSE, URINE NEGATIVE (NEGATIVE); KETONES,URINE NEGATIVE (NEGATIVE); LEUKOCYTE ESTERASE,URINE NEGATIVE (NEGATIVE); NITRITE,URINE NEGATIVE (NEGATIVE); PROTEIN,URINE NEGATIVE (NEGATIVE); URINE SPECIFIC GRAVITY 1.011
[2020-07-06 11:05] LABS: ALBUMIN 2.6 g/dL (3.5-5.0); ALKALINE PHOSPHATASE 61 U/L (38-126); ANION GAP 5 (5-19); ASPARTATE AMINO TRANSFERASE 29 U/L (14-36); BILIRUBIN,DIRECT 0.2 mg/dL (0.0-0.4); BILIRUBIN,TOTAL 0.5 mg/dL (0.2-1.3); BLOOD UREA NITROGEN 7 mg/dL (7-20); CALCIUM 7.7 mg/dL (8.4-10.2); CARBON DIOXIDE 24 mmol/L (22-30); CHLORIDE 110 mmol/L (98-107); GLUCOSE 122 mg/dL (75-110); POTASSIUM 3.8 mmol/L (3.6-5.0); TOTAL PROTEIN 5.5 g/dL (6.3-8.2)
[2020-07-06 11:13] LABS: ADD MANUAL MICROSCOPIC YES; RBC,URINE NONE SEEN /HPF; WBC,URINE 0-1 /HPF
[2020-07-06 11:14] LABS: BACTERIA,URINE TRACE /HPF
[2020-07-06 11:34] LABS: PLATELET COUNT 76 10^3/uL (150-450)
== END ==
LOC: OD 09:16
PROVIDERS: ATTEND Physician Assistant
DX: I48.0 Paroxysmal atrial fibrillation (principal); Z79.01 Long term (current) use of anticoagulants; Z79.899 Other long term (current) drug therapy
CPT/HCPCS: 36415; 80048; 80076; 81001; 83735; 85027; 85730

== ENCOUNTER → 2020-08-04 | Outpatient (CLI) | payer MEDICARE, OTHER ==
--- NOTE | 2020-08-04 19:02 | RADIOLOGY REPORT (SQ) ---
EXAM DESCRIPTION: CT CHEST WITH IMAGES COMPLETED DATE/TIME: 08/04/2020 9:58 am REASON FOR STUDY: C34.32 MALIGNANT NEOPLASM OF LOWER LOBE, LEFT BRONCHUS OR LUNG C34.32 MALIGNANT N EOPLASM OF LOWER LOBE, LEFT BRONCHUS OR NISA COMPARISON: 06/15/2020 TECHNIQUE: CT scan of the chest performed using helical scanning technique with dynamic intravenous contrast injection. Images reviewed with lung, soft tissue and bone windows. Reconstructed coronal and sagittal MPR and MIP images reviewed. All images stored on PACS. All CT scanners at this facility use dose modulation, iterative reconstruction, and/or weight based d osing when appropriate to reduce radiation dose to as low as reasonably achievable (ALARA). [facility]: Dose Right [facility]: CareDose [facility]: Dose Right [facility]: Teradose 4D [facility]: Smart C[employer] CONTRAST TYPE AND DOSE: See abdomen RENAL FUNCTION: Creatinine 1.08 RADIATION DOSE: CT Rad equipment meets quality standard of care and radiation dose reduction techniq ues were employed. CTDIvol: 8.2 - 14.2 mGy. DLP: 1358 mGy-cm. . LIMITATIONS: None. FINDINGS: LUNGS AND PLEURA: There is a tunneled small bore left basilar chest tube in place with mod erate size hydropneumothorax. There is been reduction of the previously seen pleural fluid component compared to prior CT. There is persistent irregular consolidation throughout the upper and lower lo bes. Largest focal area of consolidation within the lower lobe measures approximately 4.9 by 4.2 cm (series 6, image 52). There is irregular pleural thickening throughout the hemithorax. Right hemith orax is unremarkable. HILAR AND MEDIASTINAL STRUCTURES: Right peritracheal node has decreased in size now measuring 1.0 cm in long axis (series 2, image 8), previously 1.7 cm. No new discrete mediastinal adenopathy. HEART AND VASCULAR STRUCTURES: No aneurysm. Scattered coronary atherosclerosis. Small pericardial e ffusion. Left lower lobe pulmonary artery is largely obscured from the left basilar masslike consoli dation. HARDWARE: Small bore left basilar chest tube. Left sided chest port with catheter tip at SVC. UPPER ABDOMEN: See separate report of the CT of the abdomen. THYROID AND OTHER SOFT TISSUES: No masses. No adenopathy. BONES: No significant finding. OTHER: No other significant finding. IMPRESSION: 1. Tunneled small bore left basilar chest tube in place with moderate size hydropneumot horax. Interval improved aeration of the left lung from prior CT. Persistent multifocal consolidati on with more focal masslike consolidation within the left lower lobe measuring 4.9 x 4.2 cm suspiciou s for underlying mass although delineation difficult. PET-CT could be considered for more definitive characterization. 2. Decreased size of the previously seen 1.7 cm right paratracheal node, now measuring 1.0 cm. 3. See same-day abdomen CT for findings below the diaphragm. TECHNICAL DOCUMENTATION: JOB ID: [id number] Quality ID # [id number]: Final reports with documentation of one or more dose reduction techniques (e.g., Au tomated exposure control, adjustment of the mA and/or kV according to patient size, use of iterative reconstruction technique) 2010 [email or web address]- All Rights Reserved Reading location - IP/workstation name: [email or web address]
--- NOTE | 2020-08-04 19:37 | RADIOLOGY REPORT (SQ) ---
EXAM DESCRIPTION: CT ABD/PELVIS WITH IV ONLY IMAGES COMPLETED DATE/TIME: 08/04/2020 9:58 am REASON FOR STUDY: C34.32 MALIGNANT NEOPLASM OF LOWER LOBE, LEFT BRONCHUS OR LUNG C34.32 MALIGNANT N EOPLASM OF LOWER LOBE, LEFT BRONCHUS OR NISA COMPARISON: 06/15/2020 TECHNIQUE: CT scan of the abdomen and pelvis performed using helical scanning technique with dynamic intravenous contrast injection. No oral contrast. Images reviewed with lung, soft tissue, and bone windows. Reconstructed coronal and sagittal MPR images reviewed. Delayed images for evaluation of the urinary system also acquired. All images stored on PACS. All CT scanners at this facility use dose modulation, iterative reconstruction, and/or weight based d osing when appropriate to reduce radiation dose to as low as reasonably achievable (ALARA). [facility]: Dose Right [facility]: CareDose [facility]: Dose Right [facility]: Teradose 4D [facility]: [employer] CONTRAST TYPE AND DOSE: contrast/concentration: Isovue 350.00 mmol/ml; Total Contrast Delivered: 100 .0 ml; Total Saline Delivered: 72.0 ml RENAL FUNCTION: Creatinine 1.08 RADIATION DOSE: . LIMITATIONS: None. FINDINGS: LOWER CHEST: See separate report of the CT of the chest. LIVER: Normal size. No masses. No dilated ducts. SPLEEN: Normal size. No focal lesions. PANCREAS: No masses. No significant calcifications. No adjacent inflammation or peripancreatic fluid collections. Pancreatic duct not dilated. GALLBLADDER: Decompressed. No radiopaque stones. No pericholecystic inflammatory change. ADRENAL GLANDS: No significant masses or asymmetry. RIGHT KIDNEY AND URETER: No definite masses. Stable hypodense upper pole lesion, likely cyst but dif ficult to characterize secondary to small size. No significant calcifications. No hydronephrosis or hydroureter. LEFT KIDNEY AND URETER: No solid masses. No significant calcifications. No hydronephrosis or hydr oureter. AORTA AND VESSELS: No aneurysm. No dissection. Renal arteries, SMA, celiac without stenosis. RETROPERITONEUM: No retroperitoneal adenopathy, hemorrhage or masses. BOWEL AND PERITONEAL CAVITY: No masses or inflammatory changes. No free fluid or peritoneal masses. APPENDIX: Normal. PELVIS: No mass. No free fluid. Normal bladder. ABDOMINAL WALL: No masses. No hernias. BONES: Increased size of a sclerotic focus within the L4 vertebral body measuring 16 mm, previously 9 mm (series 3, image 34). Subtle additional 6 mm sclerotic focus within the right sacral ala (series 3, image 45) OTHER: No other significant finding. IMPRESSION: 1. Increased size of a sclerotic focus within the L4 vertebral body measuring 16 mm silas picious for a osseous metastatic deposit. 2. No other evidence of metastatic disease within the abdomen or pelvis. TECHNICAL DOCUMENTATION: JOB ID: [id number] Quality ID # [id number]: Final reports with documentation of one or more dose reduction techniques (e.g., Au tomated exposure control, adjustment of the mA and/or kV according to patient size, use of iterative reconstruction technique) 2010 [employer]- All Rights Reserved Reading location - IP/workstation name: [email or web address]
== END ==
LOC: RAD 09:38
PROVIDERS: ATTEND Internal Medicine
DX: C34.32 Malignant neoplasm of lower lobe, left bronchus or lung (principal)
CPT/HCPCS: 71260; 74177

== ENCOUNTER → 2020-09-16 | Outpatient (CLI) | payer MEDICARE, OTHER ==
--- NOTE | 2020-09-16 12:47 | RADIOLOGY REPORT (SQ) ---
EXAM DESCRIPTION: CT CHEST WITH IMAGES COMPLETED DATE/TIME: 09/16/2020 9:36 am REASON FOR STUDY: MALIGNANT NEOPLASM OF LOWER LOBE, LEFT BRONCHUS OR LUNG C34.32 MALIGNANT NEOPLASM OF LOWER LOBE, LEFT BRONCHUS OR NISA COMPARISON: CT of the chest with contrast from 08/04/2020. TECHNIQUE: CT scan of the chest performed using helical scanning technique with dynamic intravenous contrast injection. Images reviewed with lung, soft tissue and bone windows. Reconstructed coronal and sagittal MPR and MIP images reviewed. All images stored on PACS. All CT scanners at this facility use dose modulation, iterative reconstruction, and/or weight based d osing when appropriate to reduce radiation dose to as low as reasonably achievable (ALARA). [facility]: Dose Right [facility]: CareDose [facility]: Dose Right [facility]: Teradose 4D [facility]: [employer] CONTRAST TYPE AND DOSE: Contrast/concentration: Isovue 350.00 mmol/ml; Total Contrast Delivered: 80. 0 ml; Total Saline Delivered: 27.0 ml RENAL FUNCTION: GFR > 60. RADIATION DOSE: CT Rad equipment meets quality standard of care and radiation dose reduction techniq ues were employed. CTDIvol: 7.5 - 11.9 mGy. DLP: 1250 mGy-cm. LIMITATIONS: None. FINDINGS: LUNGS AND PLEURA: The trachea and main bronchi are patent. There is re- demonstration of a loculated left-sided hydropneumothorax. The amount of gas in the posterior aspect of the left macarena thorax has decreased. The position of the left-sided tunneled pleural drainage catheter is unchanged . The aeration of the lingula has improved. The consolidative opacities in the left lower lobe asso ciated with bronchiectasis, bronchial wall thickening and volume loss are unchanged. There are sever al less than 5 mm nodules scattered throughout the right upper lobe (refer to images is 18, 28 and 35 of series 6) that are unchanged in size and number compared to the prior CT. There is no new or enl arging pulmonary nodule. HILAR AND MEDIASTINAL STRUCTURES: The right upper paratracheal lymph node (image 8 of series 2) has c ontinued to decrease in size and it measures 5 mm compared to 10 mm on the prior CT. The prevascular lymph node on image 13 of series 2) is unchanged in size. HEART AND VASCULAR STRUCTURES: Atherosclerotic calcification of the coronary arteries. There is no t horacic aortic dissection or aneurysm. HARDWARE: The tip of the left IJ approach port terminates within the SVC. UPPER ABDOMEN: Refer to the separate report of the CT of the abdomen. THYROID AND OTHER SOFT TISSUES: No adenopathy or mass. BONES: The sclerotic lesions along the inferior endplate of T8 and superior endplate of T9 are unchan ged OTHER: No other findings. IMPRESSION: 1. There is re- demonstration of a loculated left-sided hydropneumothorax. The amount o f gas in the posterior aspect of left hemithorax has decreased. The position of the left-sided tunne led pleural drainage catheter is unchanged. The aeration of the lingula has improved. The consolida tive opacities in the left lower lobe associated with bronchiectasis, bronchial wall thickening and v olume loss are unchanged. 2. The right upper peritracheal lymph node (image 8 of series 2) has continued to decrease in size an d it measures 5 mm compared to 10 mm on the prior CT. TECHNICAL DOCUMENTATION: JOB ID: [id number] Quality ID # 436: Final reports with documentation of one or more dose reduction techniques (e.g., Au tomated exposure control, adjustment of the mA and/or kV according to patient size, use of iterative reconstruction technique) 2010 [employer]- All Rights Reserved Reading location - IP/workstation name: [email or web address]
--- NOTE | 2020-09-16 13:09 | RADIOLOGY REPORT (SQ) ---
EXAM DESCRIPTION: CT ABD/PELVIS WITH IV ORAL IMAGES COMPLETED DATE/TIME: 09/16/2020 9:38 am REASON FOR STUDY: MALIGNANT NEOPLASM OF LOWER LOBE, LEFT BRONCHUS OR LUNG C34.32 MALIGNANT NEOPLASM OF LOWER LOBE, LEFT BRONCHUS OR NISA COMPARISON: CT of the abdomen and pelvis with contrast from 08/04/2020. TECHNIQUE: CT scan of the abdomen and pelvis performed using helical scanning technique with dynamic intravenous contrast injection. No oral contrast. Images reviewed with lung, soft tissue, and bone windows. Reconstructed coronal and sagittal MPR images reviewed. Delayed images for evaluation of the urinary system also acquired. All images stored on PACS. All CT scanners at this facility use dose modulation, iterative reconstruction, and/or weight based d osing when appropriate to reduce radiation dose to as low as reasonably achievable (ALARA). [facility]: Dose Right [facility]: CareDose [facility]: Dose Right [facility]: Teradose 4D [facility]: [employer] CONTRAST TYPE AND DOSE: 80 mL Omnipaque 350- low osmolar. RENAL FUNCTION: GFR > 60. LIMITATIONS: None. FINDINGS: LOWER CHEST: Refer to the separate report of the CT of the chest. LIVER: The morphology of the liver is noncirrhotic. The portal veins are patent. There is no hepati c mass. SPLEEN: No splenomegaly or splenic mass. There is an accessory splenule inferior to the spleen that measures 12 mm. PANCREAS: No acute gross abnormality of the pancreas. GALLBLADDER: The gallbladder is contracted. ADRENAL GLANDS: No mass or asymmetry. RIGHT KIDNEY AND URETER: The subcentimeter low-attenuation lesion in the upper pole of the kidney is unchanged and considered too small to characterize. There is no hydronephrosis, nephrolithiasis, hyd roureter or ureterolithiasis. LEFT KIDNEY AND URETER: No solid mass, hydronephrosis, nephrolithiasis, hydroureter or ureterolithias is. AORTA AND VESSELS: No aneurysm or dissection of the abdominal aorta. RETROPERITONEUM: No retroperitoneal adenopathy, hemorrhage or mass. BOWEL AND PERITONEAL CAVITY: Colonic diverticulosis without diverticulitis. There is no bowel obstru ction, bowel wall thickening or pericolonic/ perienteric inflammation. There is no mesenteric adenop athy, free intraperitoneal fluid or mesenteric/ omental inflammation. APPENDIX: Normal. PELVIS: No abnormality of the uterus or adnexa that is apparent on CT. ABDOMINAL WALL: No abdominal wall mass or hernia. BONES: The sclerotic lesions in the L4 vertebral body, sacrum, left pubic bone and proximal left femu r are unchanged. OTHER: No other findings. IMPRESSION: Stable sclerotic osseous lesion in the lumbar spine, pelvis and proximal left femur. Th ere is no evidence of disease progression in the abdomen and pelvis. TECHNICAL DOCUMENTATION: JOB ID: [id number] Quality ID # [id number]: Final reports with documentation of one or more dose reduction techniques (e.g., Au tomated exposure control, adjustment of the mA and/or kV according to patient size, use of iterative reconstruction technique) 2010 [employer]- All Rights Reserved Reading location - IP/workstation name: [email or web address]
== END ==
LOC: RAD 09:05
PROVIDERS: ATTEND Internal Medicine
DX: C34.32 Malignant neoplasm of lower lobe, left bronchus or lung (principal)
CPT/HCPCS: 71260; 74177; 82565

== ENCOUNTER → 2020-10-05 | Outpatient (CLI) | payer MEDICARE, OTHER ==
--- NOTE | 2020-10-05 15:25 | RADIOLOGY REPORT (SQ) ---
EXAM DESCRIPTION: MRI HEAD COMBO IMAGES COMPLETED DATE/TIME: 10/05/2020 8:04 am REASON FOR STUDY: LUNG CANCER C34.32 MALIGNANT NEOPLASM OF LOWER LOBE, LEFT BRONCHUS OR NISA. No sym ptoms. COMPARISON: None. TECHNIQUE: Multiplanar imaging includes noncontrasted T1, T2, FLAIR, diffusion with ADC map and post gadolinium contrast T1 sequences. Images stored on PACS. CONTRAST TYPE AND DOSE: 15 mL ProHance RENAL FUNCTION: Not indicated. ACR Type II contrast agent associated with few, if any, unconfounded cases of NSF LIMITATIONS: None. FINDINGS: ANATOMY: No anomalies. Normal vascular flow voids. Pituitary fossa normal. CSF SPACES: Normal in size and contour. No hemorrhage. CEREBRUM: Sulci and gyri normal in size and contour. Moderate periventricular and deep hyperintense white matter signal on FLAIR imaging. No evidence of hemorrhage, mass, or extraaxial fluid collection . No abnormal enhancement post contrast. POSTERIOR FOSSA: No signal alteration. No hemorrhage. No edema, masses, or mass effect. Internal devon tory canals, cerebellopontine angles, mastoids normal. No enhancing lesions. No abnormal enhancement post contrast. DIFFUSION IMAGING: Negative for acute or subacute infarction. ORBITS: No masses. Globes normal. PARANASAL SINUSES: No fluid levels. Mucosa normal. OTHER: No other significant finding. IMPRESSION: 1. No evidence of intracranial metastases. 2. Moderate chronic small vessel ischemic change. 3. No acute ischemia, mass, mass effect, or evidence of intracranial hemorrhage. EVIDENCE OF ACUTE STROKE: NO. TECHNICAL DOCUMENTATION: JOB ID: [id number] 2010 [employer]- All Rights Reserved Reading location - IP/workstation name: [email or web address]
== END ==
LOC: RAD 08:22
PROVIDERS: ATTEND Internal Medicine
DX: C34.32 Malignant neoplasm of lower lobe, left bronchus or lung (principal)
CPT/HCPCS: 70553; A9576

== ENCOUNTER 2020-10-06 07:44 | Day surgery (SDC) | payer MEDICARE, OTHER ==
[2020-10-02 10:47] LABS: HEMATOCRIT 30.9 % (36.0-47.0); HEMOGLOBIN 10.2 g/dL (12.0-15.5); MEAN CORPUSCULAR HEMOGLOBIN 27.2 pg (27.0-33.4); MEAN CORPUSCULAR HGB CONC 33.2 g/dL (32.0-36.0); MEAN CORPUSCULAR VOLUME 82 fl (80-97); PLATELET COUNT 245 10^3/uL (150-450); RED BLOOD COUNT 3.77 10^6/uL (3.72-5.28); RED CELL DISTRIBUTION WIDTH 19.5 % (11.5-14.0)
[2020-10-02 11:09] LABS: ANION GAP 9 (5-19); BLOOD UREA NITROGEN 12 mg/dL (7-20); CARBON DIOXIDE 25 mmol/L (22-30); CHLORIDE 104 mmol/L (98-107); GLUCOSE 139 mg/dL (75-110); POTASSIUM 4.5 mmol/L (3.6-5.0)
[~2020-10-06 07:44] MED LIST changes: +ACETAMINOPHEN 1,000 MG/100 ML RTUPB IV ONE; +ACETAMINOPHEN 1,000 MG/100 ML RTUPB IV PRN; -ALBUTEROL SULFATE 0.083% NEB 2.5 MG/3 ML AMPUL NEB ONE; +LACTATED RINGERS 1000 ML IV PRN
[2020-10-06] MEDS ORDERED: MIDAZOLAM 2 MG/2 ML INJ ONE (11:13)
[2020-10-06] MEDS ORDERED: PROPOFOL INJ 200 MG/20 ML VIAL IV ONE (11:13)
[2020-10-06] MEDS ORDERED: DIPHENHYDRAMINE HCL 50 MG/ML VIAL IV PRN (11:32)
[2020-10-06] MEDS ORDERED: FENTANYL CITRATE INJ/PF 100 MCG/2 ML AMPUL IV PRN ×3 (11:32)
[2020-10-06] MEDS ORDERED: PROMETHAZINE HCL INJ 25 MG/1 ML VIAL IV PRN ×2 (11:32)
--- NOTE | 2020-10-06 11:57 | Discharge Summary ---
Discharge Summary (SDC) - Discharge Final Diagnosis: Dysfunctional Pleurx catheter Date of Surgery: 10/06/20 Discharge Date: 10/06/20 Condition: Stable Treatment or Instructions: Discharge home. Diet as tolerated. Activity: As tolerated. Follow-up with [place] [facility] as needed. Referrals: LUIS ARMANDO HOPKINS DO [Primary Care Provider] - Discharge Diet: As Tolerated Respiratory Treatments at Home: Deep Breathing/Coughing, Incentive Spirometer Discharge Activity: Balance Activity w/Rest Home Care Assistance: None Needed Report the Following to Your Physician Immediately: Shortness of Breath, Nausea, Vomiting, Fever over 101 Degrees, Unusual Bleeding, Redness, Swelling, Warmth
[2020-10-06 13:56] VITALS: BP 136/63
--- NOTE | 2020-10-06 15:39 | Operative Report ---
Nonrecallable Operative Report DATE OF SURGERY: 10/06/20 PREOPERATIVE DIAGNOSIS: dysfunctional pleural drainage catheter POSTOPERATIVE DIAGNOSIS: same as above OPERATION: Removal of tunneled pleural drainage catheter of the left chest. SURGEON: YUSUF REA ANESTHESIA: LMAC TISSUE REMOVED OR ALTERED: Left-sided pleural drainage catheter COMPLICATIONS: None apparent ESTIMATED BLOOD LOSS: Minimal PROCEDURE: Drains/implants: None. Procedure in detail: After informed consent was obtained, the patient was brought to the operating room and laid the right lateral decubitus position. The area of the left posterior chest was prepped and draped in a normal sterile fashion. The Bruno cuff was freed from the subcutaneous tissues using sharp dissection with Metzenbaum scissors. After the Bruno cuff was freed, the catheter was easily removed from the thoracic cavity. The area was then covered with a sterile dressing, and the procedure was concluded. All sponge, instrument, and needle counts were correct x2. Condition: Stable.
== END 2020-10-06 13:25 | disposition home or self-care (01) ==
LOC: OROUT 07:44
PROVIDERS: ATTEND Surgery
DX: T85.698A Other mechanical complication of other specified internal prosthetic devices, implants and grafts, initial encounter (principal); Y83.8 Other surgical procedures as the cause of abnormal reaction of the patient, or of later complication, without mention of misadventure at the time of the procedure; C34.90 Malignant neoplasm of unspecified part of unspecified bronchus or lung; J90 Pleural effusion, not elsewhere classified; E78.00 Pure hypercholesterolemia, unspecified; Z79.899 Other long term (current) drug therapy; Z20.828 Contact with and (suspected) exposure to other viral communicable diseases; I10 Essential (primary) hypertension; Z79.01 Long term (current) use of anticoagulants
CPT/HCPCS: 36415; 85027; 80048; 00520; 32552; U0003; J2704; J0131; C9803; 520; 87635; J2250